=== PATIENT | male | born 1955 | race Caucasian/White ===

== ENCOUNTER → 2017-09-15 09:56 | Outpatient (CLI) | payer OTHER, SELFPAY ==
[2017-09-15 11:57] LABS: Absolute Lymphocyte Count 1.69 X10^3/ul (0.83-4.51); Absolute Neutrophil Count 2.9 X10^3/uL (2.0-7.7); Basophil# 0.03 X10^3/uL; Basophil% 0.6 % (0-1); Eosinophil# 0.05 X10^3/uL; Hematocrit 42.8 % (40-54); Hemoglobin 14.3 g/dl (13.0-16.5); Lymphocyte # 1.69 X10^3/ul (4.0); Lymphocyte % 33.3 % (19-41); Mean Corp Hgb Conc 33.4 g/gl (32-36); Mean Corpuscular Hgb 30.3 pg (27.0-32.0); Mean Corpuscular Volume 90.7 fL (80-94); Mean Platelet Vol. 9.7 fl (6.2-12.0); Monocyte# 0.41 X10^3/uL; Monocyte% 8.1 % (0-10); Neutrophil # 2.89 X10^3/uL (2.7-7.7); Platelet Count 183 K/mm3 (150-450); RBC Distribution Width CV 12.3 % (11.6-14.6); RBC Distribution Width SD 41.5 fl (35.1-43.9); Red Blood Count 4.72 M/mm3 (4.6-6.2); White Blood Count 5.1 K/mm3 (4.4-11.0)
[2017-09-15 11:58] LABS: POSITIVE COUNT NO; POSITIVE DIFFERENTIAL NO; POSITIVE MORPHOLOGY NO
[2017-09-15 12:10] LABS: Anion Gap 5 (5-15); BUN 24 mg/dL (7-18); BUN/Creat Ratio 25.7 RATIO (10-20); Chloride 106 mmol/L (98-107); Creatinine, Serum 0.94 mg/dL (0.70-1.30); EST Glomerular Filtration Rate 87 mL/min (>60); Est Glom Filt Rate - Afr Amer 105 mL/min (>60); Glucose 138 mg/dL (74-106); Potassium 4.2 mmol/L (3.5-5.1); Sodium Level 142 mmol/L (136-145)
== END ==
PROVIDERS: Family Provider Family Medicine; PCP Family Medicine; Visit Provider Family Medicine
DX: E11.9 Type 2 diabetes mellitus without complications (principal)
CPT/HCPCS: 36415; 80048; 85025

== ENCOUNTER → 2019-09-16 08:36 | Outpatient (CLI) | payer OTHER, SELFPAY ==
[2019-09-16 12:27] LABS: Absolute Lymphocyte Count 1.47 X10^3/uL (0.83-4.51); Absolute Neutrophil Count 3.1 X10^3/uL (2.0-7.7); Basophil# 0.03 X10^3/uL; Basophil% 0.6 % (0-1); Eosinophil# 0.09 X10^3/uL; Eosinophils% 1.8 % (0-5); Hemoglobin 13.3 g/dL (13.0-16.5); Lymphocyte # 1.47 X10^3/ul (4.0); Lymphocyte % 29.2 % (19-41); Mean Corp Hgb Conc 34.1 g/dL (32-36); Mean Corpuscular Hgb 31.4 pg (27.0-32.0); Mean Corpuscular Volume 92.2 fL (80-94); Mean Platelet Vol. 9.9 fl (6.2-12.0); NRBC Flagged by Analyzer 0 % (0-5); Neutrophil # 3.12 X10^3/uL (2.7-7.7); Platelet Count 181 K/mm3 (150-450); RBC Distribution Width CV 11.9 % (11.6-14.6); RBC Distribution Width SD 40.3 fl (35.1-43.9); Red Blood Count 4.23 M/mm3 (4.6-6.2)
[2019-09-16 12:39] LABS: Anion Gap 2 (5-15); BUN 24 mg/dL (7-18); BUN/Creat Ratio 25.8 RATIO (10-20); Chloride 110 mmol/L (98-107); Cholesterol 140 mg/dL (200); Creatinine, Serum 0.93 mg/dL (0.70-1.30); EST Glomerular Filtration Rate 87 mL/min (>60); Est Glom Filt Rate - Afr Amer 105 mL/min (>60); Glucose 151 mg/dL (74-106); High Density Lipoprotein 51 mg/dL; Potassium 4.3 mmol/L (3.5-5.1); Sodium Level 142 mmol/L (136-145); Triglycerides 48 mg/dL; Very Low Density Lipoprotein 10 mg/dL (5-40)
[2019-09-16 14:04] LABS: Hemoglobin A1c 7.1 % (3.8-5.6)
== END ==
PROVIDERS: PCP Family Medicine; Visit Provider Family Medicine
DX: E11.9 Type 2 diabetes mellitus without complications (principal); E78.5 Hyperlipidemia, unspecified
CPT/HCPCS: 36415; 80048; 80061; 83036; 85025

== ENCOUNTER → 2022-07-05 | Outpatient (CLI) | payer BC, SELFPAY ==
[2022-07-05 09:12] LABS: Absolute Lymphocyte Count 1.35 X10^3/uL (0.83-4.51); Absolute Neutrophil Count 2.8 X10^3/uL (2.0-7.7); Basophil# 0.04 X10^3/uL; Basophil% 0.9 % (0-1); Eosinophil# 0.06 X10^3/uL; Eosinophils% 1.3 % (0-5); Hematocrit 43.1 % (40-54); Hemoglobin 14.1 g/dL (13.0-16.5); Lymphocyte # 1.35 X10^3/ul (0.83-4.51); Lymphocyte % 29.2 % (19-41); Mean Corp Hgb Conc 32.7 g/dL (32-36); Mean Corpuscular Hgb 30.3 pg (27.0-32.0); Mean Corpuscular Volume 92.7 fL (80-94); Mean Platelet Vol. 9.9 fl (6.2-12.0); Monocyte# 0.34 X10^3/uL; Monocyte% 7.3 % (0-10); NRBC Flagged by Analyzer 0 % (0-5); Neutrophil # 2.83 X10^3/uL (2.7-7.7); Neutrophil % 61.1 % (47-70); Platelet Count 192 K/mm3 (150-450); RBC Distribution Width SD 40.9 fl (35.1-43.9); Red Blood Count 4.65 M/mm3 (4.6-6.2); White Blood Count 4.6 K/mm3 (4.4-11.0)
[2022-07-05 10:02] LABS: ALB/GLOB Ratio 1.2 RATIO (0.9-2.4); AST(SGOT) 34 U/L (15-37); Alanine Aminotransfer ALT/SGPT 40 U/L (16-61); Albumin, Serum 3.8 g/dL (3.2-5.0); Alkaline Phosphatase 63 U/L (45-117); Anion Gap 4 (5-15); BUN 18 mg/dL (7-18); BUN/Creat Ratio 20.1 RATIO (10-20); Chloride 109 mmol/L (98-107); Cholesterol 130 mg/dL (200); EST Glomerular Filtration Rate 90 mL/min (>60); Est Glom Filt Rate - Afr Amer 109 mL/min (>60); Globulin 3.2 g/dL (2.2-4.2); Glucose 118 mg/dL (74-106); High Density Lipoprotein 57 mg/dL; Potassium 3.9 mmol/L (3.5-5.1); Sodium Level 141 mmol/L (136-145); Triglycerides 74 mg/dL; Very Low Density Lipoprotein 15 mg/dL (5-40)
== END | disposition home or self-care (01) ==
LOC: LAB 08:32
PROVIDERS: PCP Family Medicine; Referring Provider Nurse Practitioner Family; Visit Provider Nurse Practitioner Family
DX: Z00.00 Encounter for general adult medical examination without abnormal findings (principal); E11.9 Type 2 diabetes mellitus without complications; N40.0 Benign prostatic hyperplasia without lower urinary tract symptoms; I10 Essential (primary) hypertension
CPT/HCPCS: 36415; 80053; 80061; 84153; 85025; G0103

== ENCOUNTER → 2022-12-20 | Outpatient (CLI) | payer BC, SELFPAY ==
[2022-12-20 10:48] LABS: Absolute Lymphocyte Count 1.31 X10^3/uL (0.83-4.51); Absolute Neutrophil Count 3.3 X10^3/uL (2.0-7.7); Basophil# 0.02 X10^3/uL; Basophil% 0.4 % (0-1); Eosinophil# 0.07 X10^3/uL; Eosinophils% 1.4 % (0-5); Hemoglobin 14.5 g/dL (13.0-16.5); Lymphocyte # 1.31 X10^3/ul (0.83-4.51); Lymphocyte % 25.8 % (19-41); Mean Platelet Vol. 9.9 fl (6.2-12.0); Monocyte# 0.38 X10^3/uL; Monocyte% 7.5 % (0-10); NRBC Flagged by Analyzer 0 % (0-5); Neutrophil # 3.28 X10^3/uL (2.7-7.7); Neutrophil % 64.7 % (47-70); Platelet Count 207 K/mm3 (150-450); RBC Distribution Width CV 11.9 % (11.6-14.6); RBC Distribution Width SD 41.2 fl (35.1-43.9); Red Blood Count 4.68 M/mm3 (4.6-6.2); White Blood Count 5.1 K/mm3 (4.4-11.0)
[2022-12-20 11:10] LABS: ALB/GLOB Ratio 1.3 RATIO (0.9-2.4); AST(SGOT) 32 U/L (15-37); Alanine Aminotransfer ALT/SGPT 50 U/L (16-61); Albumin, Serum 4.1 g/dL (3.2-5.0); Alkaline Phosphatase 75 U/L (45-117); Anion Gap 6 (5-15); BUN 19 mg/dL (7-18); BUN/Creat Ratio 21.9 RATIO (10-20); Chloride 105 mmol/L (98-107); Cholesterol 126 mg/dL (200); Creatinine, Serum 0.87 mg/dL (0.70-1.30); EST Glomerular Filtration Rate 93 mL/min (>60); Est Glom Filt Rate - Afr Amer 112 mL/min (>60); Globulin 3.2 g/dL (2.2-4.2); Glucose 132 mg/dL (74-106); High Density Lipoprotein 57 mg/dL; Microalbumin:Creatinine Ratio 7.1 mg/g CRE (<30 mg/g CRE); Potassium 3.9 mmol/L (3.5-5.1); Protein, Total 7.3 g/dL (6.4-8.2); Sodium Level 142 mmol/L (136-145); Triglycerides 73 mg/dL; Very Low Density Lipoprotein 15 mg/dL (5-40)
== END | disposition home or self-care (01) ==
LOC: LAB 09:30
PROVIDERS: PCP Family Medicine; Visit Provider Family Medicine
DX: E11.9 Type 2 diabetes mellitus without complications (principal); I10 Essential (primary) hypertension
CPT/HCPCS: 36415; 80053; 80061; 82043; 82570; 85025

== ENCOUNTER 2023-02-02 06:41 | Day surgery (SDC) | payer BC, SELFPAY ==
--- NOTE | 2023-01-28 12:22 | EKG12_ITS ---
Test Reason : PREOP Blood Pressure : / mmHG Vent. Rate : 062 BPM Atrial Rate : 062 BPM P-R Int : 186 ms QRS Dur : 096 ms QT Int : 408 ms P-R-T Axes : 078 076 066 degrees QTc Int : 414 ms Normal sinus rhythm Low voltage QRS Borderline ECG Confirmed by DAGMAR LOVE, LEANDER ([id number]), telegraph editor RAYMOND QUEVEDO ([id number]) on 01/29/2023 9:18:19 AM Referred By: James King Confirmed By:LEANDER LEAVITT MD
[2023-01-28 13:09] LABS: Hematocrit 42.2 % (40-54); Hemoglobin 13.8 g/dL (13.0-16.5); Mean Corp Hgb Conc 32.7 g/dL (32-36); Mean Corpuscular Hgb 30.7 pg (27.0-32.0); Mean Platelet Vol. 9.5 fl (6.2-12.0); Platelet Count 211 K/mm3 (150-450); RBC Distribution Width CV 11.9 % (11.6-14.6); RBC Distribution Width SD 41.3 fl (35.1-43.9); Red Blood Count 4.49 M/mm3 (4.6-6.2); White Blood Count 5.6 K/mm3 (4.4-11.0)
[2023-01-28 13:24] LABS: Hemoglobin A1c 6.8 % (3.8-5.6)
[2023-01-28 13:35] LABS: Anion Gap 2 (5-15); BUN 28 mg/dL (7-18); Calcium,Total 8.8 mg/dL (8.5-10.1); Chloride 108 mmol/L (98-107); EST Glomerular Filtration Rate 79 mL/min (>60); Est Glom Filt Rate - Afr Amer 96 mL/min (>60); Glucose 73 mg/dL (74-106); Potassium 4.2 mmol/L (3.5-5.1); Sodium Level 140 mmol/L (136-145)
--- NOTE | 2023-02-02 07:09 | PCM.HP.BLA ---
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 Is patient in pain?: Yes (left groin) Allergies No Known Allergies Allergy (Unverified 01/15/23 15:06) Medications aspirin 81 mg tablet,delayed release 81 mg PO DAILY 01/15/23 [History Confirmed 01/15/23] atorvastatin 20 mg tablet 20 mg PO 01/15/23 [History Confirmed 01/15/23] glipizide 2.5 mg tablet, extended release 24 hr 2.5 mg PO 01/15/23 [History Confirmed 01/15/23] lisinopril 5 mg tablet 5 mg PO 01/15/23 [History Confirmed 01/15/23] PFSH Medical History (Updated 01/15/23 @ 15:05 by Cierra Yee) Diabetes High cholesterol Hypertension Left inguinal hernia Surgical History (Updated 01/15/23 @ 15:05 by Cierra Yee) S/P laparoscopic cholecystectomy Family History (Updated 01/15/23 @ 15:05 by Cierra Yee) Father Cancer prostate Social History (Updated 01/15/23 @ 15:05 by Cierra Yee) Smoking Status: Former smoker alcohol intake: never HPI HPI HPI: 67-year-old gentleman is referred by Dr. Annamarie Medina for surgical consultation regarding a left inguinal hernia and a written copy of my surgical consult recommendations will return to her. Very pleasant Curly gentleman he works at [employer] months ago he developed bulging in his left groin. He is not claiming that it was work-related. He does do significant mount of [employer] shopping. He claims he enjoys good health other than type 2 diabetes. He does remain physically active. 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 He does not have to do any heavy lifting or straining. ROS General General: No weight change, appetite, fatigue, colon cancer, breast cancer or weakness HEENT HEENT: No difficulty swallowing, eye injury, eye surgery, swollen glands or hoarseness Endo Endocrine: Yes diabetes mellitus; No thyroid disease, thyroid cancer, Hair loss, heat intolerance or cold intolerance Skin Skin: No rash or changing moles Breast Breast: No left breast lump, right breast lump, nipple discharge, breast pain, abnormal mammogram, abnormal US or breast enlargement Musc Musculoskeletal: No back problems, arthritis, rheumatoid arthritis, gout or joint pain Cardio Cardiovascular: No murmur, pacemaker, heart disease, atrial fibrillation, high blood pressure, heart attack, heart stent, palpitations, shortness of breat with exertion or chest pain Psych Psychiatric: No depression, anxiety or hearing voices Resp Respiratory: No shortness of breath, No sleep apnea, No cough, No COPD, No asthma, No emphysema and No wheezing Gastro Gastrointestinal: No abdominal pain, No nausea or vomiting, No diarrhea, No constipation, No blood in stool, No acid reflux, No hemorrhoids, No ulcers, No gallbladder problem and No black,tarry stools [place] Hematologic: No blood thinners, No blood disorders, No bleeding, No anemia and No blood clots Neuro Neurologic: No system reviewed and no additional complaints, except as documented, No as per HPI, No abnormal gait, No abnormal hearing, No abnormal movements, No abnormal speech, No behavioral changes, No burning sensations, No confusion, No convulsions, No disequilibrium, No dizziness, No localized weakness, No frequent falls, No headache(s), No lack of coordination, No loss of vision, No memory loss, No numbness, No other visual disturbances, No radicular pain, No restless legs, No sensory deficit, No syncope, No tingling, No tremor(s), No weakness and No other Exam Const General: cooperative, healthy appearing, comfortable and no acute distress Nutritional Appearance: average body habitus Orientation: alert, awake and oriented x3 [facility] Head: normal to inspection Eyes General: appearance normal, both eyes and all related structures Neck Neck: normal visual inspection Chest Chest palpation & inspection: normal inspection of the chest Resp Effort & Inspection: normal respiratory effort Auscultation: clear to auscultation bilaterally Cardio Rate: regular rate Rhythm: regular rhythm GI Inspection: normal to inspection Percussion: normal to percussion Other: Right groin solid intact Sizable left inguinal hernia which is reducible Testicles are descended bilaterally [facility]ervical Spine: normal cervical lordosis Skin General: no rashes or lesions noted Neuro General: patient alert, patient awake and patient oriented x3 Psych Appearance: grossly normal Assessment and Plan Assessment and Plan (1) Left inguinal hernia: Status: Acute Plan: I proposed to the patient a laparoscopic left inguinal hernia repair with mesh and with his present I discussed technique benefit risk complication alternatives. The absolute earliest I would think he could return to work would be 2 weeks. We will allow further time on his FMLA. He is aware that he will need to allow a recovery period. He is aware that there are no guarantees of success. He has had an opportunity to ask and have questions answered. I appreciate the opportunity of assisting with his surgical care. We will schedule and proceed at his discretion. I have examined the patient and the H&P has been reviewed. There are no clinical changes since date of exam. James King M.D., F.A.C.S.
--- NOTE | 2023-02-02 07:10 | DCINST_ITS ---
Discharge Instructions Procedure General Surgery Diet Discharge Diet: Light diet - advance as tolerated (if you have questions about your diet instructions, please talk to you doctor.) Activity Discharge Activity: May Not Drive (for 3-5 days or while taking narcotic pain medicine.) May shower in (days): 1 Lifting Restrictions: 10 pounds Dressing / Incision Call your doctor if your incision/area has: Continuous Slow Oozing, Sudden Increased Bleeding, Increased Pain/ Swelling, Increased Redness and Foul Smelling Discharge Call your doctor if you observe: Fever of 101 or Higher Suture Line Care: Avoid Pulling/Pushing and Avoid Pinching/Bending Additional Dressing/Incision Instructions:: Change or remove dressing in 4 days. Leave steri-strips in place for 1 week. Follow Up Care Please Follow Up With: James King MD When: Call [phone] to make an appointment to be seen in about 10 days. Please leave your Rosado catheter in place. I anticipate you are being contacted by Dr. Gupta's office for an appointment early next week. This will then facilitate your catheter removal. Test Results: Test results from this visit will be discussed in further detail at your follow- up appointment, if applicable. Discharge Plan Admission Primary Reason for Your Visit: Left inguinal hernia Attending Provider: James King Primary Care Provider: Annamarie Medina Discharge Orders/Prescriptions Prescriptions: New hydrocodone-acetaminophen 5-325 mg tablet 1 tab PO Q6H PRN (Reason: pain) 2 Days Qty: 5 0RF tamsulosin [Flomax] 0.4 mg capsule 0.4 mg PO DAILY Qty: 30 1RF Continued lisinopril 5 mg tablet 5 mg PO DAILY Patient Comments: TAKE 1 TABLET BY MOUTH ONCE DAILY glipizide 2.5 mg tablet extended release 24hr 2.5 mg PO DAILY Patient Comments: TAKE 1 TABLET BY MOUTH ONCE DAILY WITH THE FIRST MEAL OF THE DAY atorvastatin 20 mg tablet 20 mg PO QHS Patient Comments: TAKE 1 TABLET BY MOUTH ONCE DAILY aspirin 81 mg tablet,delayed release (DR/EC) 81 mg PO DAILY Referrals / Follow Up: Nam Olivia MD [Non-Staff] - Disposition Disposition (needs filled in before D/C Order can be placed): Home, Self Care
[2023-02-02 07:15] VITALS: BP 115/75; PULSE 58; RESP 16; TEMP 36.9; O2SAT 97; BMI 23.3
[2023-02-02 07:30] LABS: Bedside Glucose 119 mg/dL (74-106)
[2023-02-02] MEDS: Lactated Ringers 1,000 ML 15 ML IV (07:36)
[2023-02-02] MEDS: Cefazolin 2 GM in 0.9% Normal Saline (100mL Bag) 100 ML IV (08:35)
[2023-02-02] MEDS: Lidocaine Jelly 2% 20 ML Syringe (URO-JET) 1 APPLIC (09:30)
[2023-02-02] MEDS: Bupivacaine Mpf 0.5% 30 ML VIAL (09:33)
--- NOTE | 2023-02-02 09:37 | PCM.OPRPT ---
Report of Operation Date of Procedure: 02/02/23 Pre-Operative Diagnosis: Symptomatic indirect left inguinal hernia Post-Operative Diagnosis: Symptomatic indirect left and 1 hernia with gross urinary bladder distention Surgery/Procedure Performed:: Laparoscopic left inguinal herniorrhaphy Bard 3D max extra-large left mesh: Lot [id number], reference [id number], expiry date 08/28/2027 Secure strap Lot [id number], expiry date July 2024 Description of Surgical Findings:: Timeout informed consent was obtained. 67-year-old gentleman was taken to the operating placed on the table underwent general endotracheal intubation esthesia. Ancef 2 g were given intravenously. The abdomen was sterilely prepped and draped. 0.5% Marcaine was used as a local anesthetic. Skin sites were Arabella size. A total of 30 cc was used. A infraumbilical incision was created sharp dissection carried down to subcu tissue felt that I was below the level of the mesh. Holding sutures of 0 Vicryl placed. Varies needle inserted. Saline drop test performed. The abdomen was insufflated with CO2 to a pressure of 10 mmHg pressure. 10 mm trocar inserted. 10 mm laparoscope inserted. No evidence of any trocar injuries inspection demonstrated massively distended urinary bladder. This was despite that the patient had just voided prior to coming back to the operating room. 5 mm trocars were placed under direct visitation the right and left lower quadrant. A left ilioinguinal nerve block was performed with Marcaine. The peritoneum superior lateral to the internal ring was incised and carried medially. The peritoneum was carefully and tediously tediously completely dissected free. Very large inguinal hernia was encountered with significant amount of blunt and sharp dissection required. Hemostasis was acquired with Hem-o-rosita clips were indicated. The direct indirect and femoral area clearly dissected free. Medially the enlargement of the bladder made it challenging to do this work however I was able to successfully get that done. An extra-large left 3D max mesh was placed was to cover defect area I got it to nicely cover the indirect direct and femoral area. I secured that laterally superiorly and medially with secure strap. Excellent positioning was achieved. Then approximated the peritoneum to itself using combination of secure strap and Hem-o-rosita clips. Complete obliteration to the mesh was achieved. I placed a 5 mm scope and through on the lateral trocar sites inspected umbilical area and there was no evidence of any adhesions and there was evidence of the previous Ventralex mesh but we I penetrated inferior to that. Because of his history of previous hernia I allowed the abdomen to deflate through an antiviral valve and then I approximated the fascial defect with a [id number] suture of 0 Nurolon. Skin edges were approximated with interrupted 4 Monocryl subdermal stitches Steri-Strips Telfa OpSite dressings applied. Because of the gross urinary distention I personally inserted a Rosado catheter. Cleanse the penis with Betadine used Bristagen lidocaine injected placed a 16 Tamazight coud? catheter. 1000 cc of urine emanated there from. He was taken to the recovery room in satisfied condition no apparent complication Specimens none. Drains none. Blood loss minimal. James King M.D., F.A.C.S. Surgeon: James King Type of Anesthesia: General Anesthesiologist: Quinton Grande
[2023-02-02 09:49] VITALS: BP 115/75; BP 134/86; PULSE 64; RESP 16; TEMP 36.9; O2SAT 100
--- NOTE | 2023-02-02 09:53 | NUR.TO.PHY ---
t/c to Dr Mas office. Recommendations: start on Flomax once daily, make referral to Dr Mas office, leave muhammad in for a week
--- NOTE | 2023-02-02 09:58 | NURSING ---
T/C to Dr Mas office regarding urinary retetention. Spoke to Dr King after speaking with Neva and Dr Alonso King will put patient on Flomax daily, his office will send a referral to Dr Gupta. Ashlee to stay in until follow up at Dr Mas office. Spoke with Neva at [facility] office and verified plan of care and that they could get patient in to office next week. Informed her to look for a referral coming from Dr Swann office.
[2023-02-02 10:00] VITALS: BP 115/75; BP 123/80; PULSE 63; RESP 14; O2SAT 96
[2023-02-02 10:15] VITALS: BP 115/75; BP 128/66; PULSE 61; RESP 16; TEMP 36.8; O2SAT 95
[2023-02-02 10:32] LABS: Bedside Glucose 136 mg/dL (74-106)
--- NOTE | 2023-02-02 11:27 | SUR.PHASEII ---
f/u appts made per patient request. Appt for Dr Gupta ([facility]) on thu02/11/23 at 11am, and has an appt to see Dr King 02/11/23 at 1pm
[2023-02-02] MEDS: HYDROcodone Bitartrate/Apap 5/325 Tablet PO (11:34)
[2023-02-02 12:10] VITALS: BP 115/75; BP 121/71; PULSE 67; RESP 14; TEMP 36.6; O2SAT 96
== END 2023-02-02 12:18 | disposition home or self-care (01) ==
LOC: SDC 06:47 → AC 06:50
PROVIDERS: Anesthesiology; PCP Family Medicine; Referring Provider Surgery; Visit Provider Surgery
PROC: (CPT 49650; principal; 2023-02-02 08:15)
DX: K40.90 Unilateral inguinal hernia, without obstruction or gangrene, not specified as recurrent (principal); E11.9 Type 2 diabetes mellitus without complications; I10 Essential (primary) hypertension; Z87.891 Personal history of nicotine dependence; Z79.84 Long term (current) use of oral hypoglycemic drugs; E78.00 Pure hypercholesterolemia, unspecified; Z79.899 Other long term (current) drug therapy; Z79.82 Long term (current) use of aspirin
CPT/HCPCS: 49650; 00840; 36415; 80048; 82962; 83036; 85027; 93005; J7120; C1781; J2405

== ENCOUNTER 2023-04-03 08:09 | Day surgery (SDC) | payer BC, SELFPAY ==
[2023-04-03] VITALS (9 sets, daily range): BP systolic 126–147; BP diastolic 72–84; PULSE 52–76; RESP 16–18; TEMP 36.3–37.1; O2SAT 96–99; BMI 24.2
[2023-04-03] MEDS: Lactated Ringers 1,000 ML 15 ML IV (08:47)
[2023-04-03 09:42] LABS: Bedside Glucose 118 mg/dL (74-106)
--- NOTE | 2023-04-03 10:45 | PROS_PTH ---
PATHOLOGY RESULTS PATIENT: [place]IS [place] [facility] [place][id number] AGE/SX: 67/M ROOM: RE04/03/[address]: Dr. Turner Gupta MD : [id number] BED: DIS: 04/04/2023 SPEC #: [id number] RECD: 04/06/23 07:22 STATUS: GRAHAM GARCIA #: [id number] REGULO: 04/03/23 10:[address]: Turner Gupta DEPT: SURGICAL PATHOLOGY RECD BY: Shwetha Herbert ENTERED: 04/06/23 07:22 SP TYPE: TURP OTHR DR: Dr. Annamarie Medina MD Tissues: Prostate, NOS Procedures: Surgery Specimen Level IV HEADER OPERATION: Transurethral resection of prostate with Olympus PRE-OP DIAGNOSIS: Retention of urine TISSUE SUBMITTED: Prostate tissue MICROSCOPIC DIAGNOSIS Prostate tissue, transurethral resection: Prostatic adenocarcinoma. See cancer summary in the comment section. SJ:rg 04/07/2023 COMMENT PROSTATE CANCER (TUR) SUMMARY: Procedure - transurethral resection of prostate (TURP) Histologic type - Acinar adenocarcinoma Histologic grade ([place] Pattern) - grade group 2 (Melody score 3+4=7) Tumor Quantitation (TUR specimens): Estimated percent of of prostatic tissue involved by tumor - ~50% Periprostatic fat invasion - not applicable Seminal vesicle invasion - not applicable Lymphvascular invasion - not identified Perineural invasion - not identified Additional pathologic findings - benign prostatic hyperplasia. Treatment effect - no known presurgical therapy. The above summary is in compliance with [employer] (CAP) Cancer Protocols Checklist and [place] Joint Committee on Cancer (AJCC), Staging Manual, 8th Ed. Case has been reviewed in consultation with Dr. Ojeda who concurs with the above diagnosis. IDC:AM MICROSCOPIC DESCRIPTION Slides are reviewed. GROSS DESCRIPTION Received is one container labeled with the patient's name and designated prostate tissue. The specimen consists of multiple irregular fragments of pink-hernández, rubbery, soft tissue that in aggregate weigh 16.2 gm and measure in aggregate 6.0 x 6.0 x 2.5 cm. Dehairer tissue is submitted in ten cassettes. / SJ:aden 04/06/2023 TC:0 CPT: 12929
--- NOTE | 2023-04-03 10:50 | DCINST_ITS ---
Discharge Instructions Diet Discharge Diet: No restrictions Activity Discharge Activity: Return to Normal Activity and May Not Drive (while taking narcotic pain medications.) Dressing / Incision Call your doctor if you observe: Fever of 101 or Higher Follow Up Care Please Follow Up With: Turner Gupta MD When: Call [phone] for an appointment Test Results: Test results from this visit will be discussed in further detail at your follow- up appointment, if applicable. Discharge Plan Admission Primary Reason for Your Visit: turp Attending Provider: Turner Gupta Primary Care Provider: Annamarie Medina Discharge Orders/Prescriptions Prescriptions: New ciprofloxacin HCl [Cipro] 500 mg tablet 500 mg PO BID Qty: 14 0RF Continued lisinopril 5 mg tablet 5 mg PO DAILY Patient Comments: TAKE 1 TABLET BY MOUTH ONCE DAILY glipizide 2.5 mg tablet extended release 24hr 2.5 mg PO DAILY Patient Comments: TAKE 1 TABLET BY MOUTH ONCE DAILY WITH THE FIRST MEAL OF THE DAY atorvastatin 20 mg tablet 20 mg PO QHS Patient Comments: TAKE 1 TABLET BY MOUTH ONCE DAILY tamsulosin [Flomax] 0.4 mg capsule 0.4 mg PO DAILY Qty: 30 1RF Held aspirin 81 mg tablet,delayed release (DR/EC) 81 mg PO DAILY Hold Instructions: Resume on 04/17/23. Referrals / Follow Up: Annamarie Medina MD [Primary Care Provider] - Turner Gupta MD [Med Staff - Active Staff] - Disposition Disposition (needs filled in before D/C Order can be placed): Home, Self Care
--- NOTE | 2023-04-03 10:50 | PCM.HP.STD ---
HPI - General General Date of Service: 04/03/23 Chief Complaint: Retention of urine HPI Narrative MARY LUIS, is a 67 M who presents for transurethral resection of prostate for retention of urine PFSH Medical History Diabetes Former smoker High cholesterol Hypertension Left inguinal hernia Urinary retention Wears glasses Wears partial dentures Home Medications aspirin 81 mg tablet,delayed release 81 mg PO DAILY 01/15/23 [History Last Taken 03/20/23] atorvastatin 20 mg tablet 20 mg PO QHS 01/15/23 [History Last Taken 04/02/23] glipizide 2.5 mg tablet, extended release 24 hr 2.5 mg PO DAILY 01/15/23 [History Last Taken 04/02/23] lisinopril 5 mg tablet 5 mg PO DAILY 01/15/23 [History Last Taken 04/03/23] tamsulosin 0.4 mg capsule (Flomax) 0.4 mg PO DAILY #30 caps 02/02/23 [Rx Last Taken 04/02/23] ciprofloxacin HCl 500 mg tablet (Cipro) 500 mg PO BID #14 tabs 04/03/23 [Rx Last Taken Unknown] Allergy/AdvReac Type Severity Reaction Status Date / Time No Known Allergies Allergy Verified 04/03/23 08:44 Family History (Updated 01/15/23 @ 15:05 by Cierra Yee) Father Cancer prostate Surgical History S/P inguinal hernia repair S/P laparoscopic cholecystectomy Social History (Updated 01/15/23 @ 15:05 by Cierra Yee) Smoking Status: Former smoker alcohol intake: never Vital Signs Vital Signs Vital Signs: 04/03/23 08:45 04/03/23 08:45 Temperature 97.6 F L Temperature Source Temporal Pulse Rate 59 L Respiratory Rate 16 Respiratory Pattern Normal Blood Pressure 131/76 H Blood Pressure Mean 94 Blood Pressure Source Monitor Blood Pressure Position Semi-Fowlers Blood Pressure Location Right Arm Pulse Ox 99 Oxygen Delivery Method Room Air Weight Weight: 76.6 kg Body Mass Index (BMI) 24.2 Results Lab / Micro Data Labs: Laboratory Results - last 24 hr 04/03/23 08:39: POC Glucose 118 H
[2023-04-03] MEDS: Cefazolin 2 GM in 0.9% Normal Saline (100mL Bag) 100 ML IV (10:54)
--- NOTE | 2023-04-03 11:53 | OP.PCM_ITS ---
Report of Operation Date of Procedure: 04/03/23 Pre-Operative Diagnosis: BPH with retention of urine Post-Operative Diagnosis: Same Surgery/Procedure Performed:: Transurethral section of prostate Description of Surgical Findings:: In the preoperative setting I discussed with the patient how the surgery would be done with expect afterwards. We discussed how a prostate resection is done and we discussed the risk of the surgery including, bleeding, infection, retrograde ejaculation, changes with ejaculation or intercourse,. We discussed the possibility that the resection of the prostate may not alleviate his urinary symptoms. We discussed the small risk of developing scar tissue along the urethral channel and strictures. We also discussed the chance of the prostate could grow back and he may need further surgery or treatment in the future for prostate problems. Patient was taken back to the operating room, timeout procedure was performed, he was identified and marked and placed on the operating room table. He underwent general anesthesia. He was placed in dorsolithotomy position. Penis and testicles were prepped and draped in usual sterile fashion. Went into the bladder using the visual obturator with a resectoscope. Once inside the bladder identified the right and left ureteral orifice. I then identified the prostate and the anatomy of the prostate. On inspection of the bladder he had a very distended weak looking bladder stretched out from chronic obstruction. I marked out the area of the sphincter and the verumontanum was identified. I then proceeded with the prostate resection first resected the median lobe. And then resected the right lobe of the prostate. Then to resect the left lobe of the prostate. I then resected the apical tissue of the prostate. This was a complete resection of all obstructive tissue to improve voiding and relieve obstruction. I then made sure that there was no injury to the sphincter or the verumontanum was still intact. At the end of the resection all the chips were Ellik out of the bladder. I then identified the left and right ureteral orifice and these were confirmed to be in good position and effluxing and not injured. The resectoscope was removed, a 22 [place] Islander catheter was placed into the bladder on continuous irrigation. And the urine was fairly light pink color and draining normally. He was taken back to the PACU in good condition. Surgeon: Turner Gupta Type of Anesthesia: General Drains: 22fr [address] way Admit VTE Documentation VTE Present on Admission: No VTE Mechan Device Prophylaxis: SCD's VTE Pharm Prophylaxis ordered?: No
[2023-04-03 12:40] LABS: Bedside Glucose 92 mg/dL (74-106)
[2023-04-03] MEDS: 0.9% Normal Saline (1000mL) 1,000 ML 125 ML IV ×2 (15:07→20:51)
[2023-04-03] MEDS: Tamsulosin HCl 0.4 MG Capsule 0.400000000000000022 MG PO (17:11)
[2023-04-03] MEDS: Ciprofloxacin 400 MG/200 ML BAG 200 MG IV (18:04)
[2023-04-03] MEDS: Docusate Sodium 100 MG Capsule 200 MG PO (20:49)
[2023-04-03] MEDS: Atorvastatin Calcium 20 MG Tablet PO (20:50)
[2023-04-04] MEDS: 0.9% Normal Saline (1000mL) 1,000 ML 125 ML IV (04:45)
[2023-04-04] MEDS: Ciprofloxacin 400 MG/200 ML BAG 200 MG IV (04:47)
[2023-04-04 04:53] VITALS: BP 126/78; PULSE 72; RESP 18; TEMP 36.9; O2SAT 98
[2023-04-04 07:50] VITALS: BP 124/79; PULSE 67; RESP 16; TEMP 36.6; O2SAT 96
[2023-04-04] MEDS: Lisinopril 5 MG Tablet PO (07:56)
[2023-04-04] MEDS: glipiZIDE 2.5 MG TAB.ER.24 PO (07:56)
[2023-04-04] MEDS: Docusate Sodium 100 MG Capsule 200 MG PO (07:56)
--- NOTE | 2023-04-04 09:45 | PCM.PN.GU ---
Subjective Subjective Status post TURP CBI is off urine is crystal clear we can remove his catheter and go home I showed him how to use catheters to self cath at home if he is not able to urinate he can be discharged after the catheter is removed. It might take several hours 6 to 8 hours before he starts urinating because he does have a weak lazy distended bladder. Objective Data Objective Data Vital Signs: Vital Signs Temp Pulse Resp BP Pulse Ox O2 Del Method 98.5 F 72 18 126/78 H 98 Room Air 04/04/23 04:53 04/04/23 04:53 04/04/23 04:53 04/04/23 04:53 04/04/23 04:53 04/04/23 07:50 Oxygen Delivery Method Room Air Weight: 76.6 kg Body Mass Index (BMI) 24.2 Intake & Output: Intake and Output for Last 24 Hours 04/02/23 04/03/23 04/04/23 23:59 23:59 23:59 Intake Total 1104.92 / 1104.92 1187.5 / 1187.5 Balance 1104.92 / 1104.92 1187.5 / 1187.5 Lab / Micro Data Labs: Laboratory Results - last 24 hr 04/03/23 12:21: POC Glucose 92
[2023-04-04 10:15] VITALS: BP 134/68; PULSE 66; RESP 16; TEMP 36.9; O2SAT 98
== END 2023-04-04 10:40 | disposition home or self-care (01) ==
LOC: SDC 08:17 → AC 09:12 → MS3 12:38
PROVIDERS: PCP Family Medicine; Referring Provider Urology; Visit Provider Urology
PROC: 0VT08ZZ Resection of Prostate, Via Natural or Artificial Opening Endoscopic (ICD-10-PCS; CPT 52601; principal; 2023-04-03 10:35)
DX: C61 Malignant neoplasm of prostate (principal); E11.9 Type 2 diabetes mellitus without complications; N40.1 Benign prostatic hyperplasia with lower urinary tract symptoms; I10 Essential (primary) hypertension; Z79.84 Long term (current) use of oral hypoglycemic drugs; Z87.891 Personal history of nicotine dependence; E78.00 Pure hypercholesterolemia, unspecified; Z79.82 Long term (current) use of aspirin; Z79.899 Other long term (current) drug therapy; R33.8 Other retention of urine; N13.8 Other obstructive and reflux uropathy
CPT/HCPCS: 52601; 00914; 82962; 88305; J7030; J7120; J0744; J2405

== ENCOUNTER → 2023-04-20 | Outpatient (CLI) | payer BC, SELFPAY | END | disposition home or self-care (01) | LOC: LAB 15:56 | PROVIDERS: PCP Family Medicine; Referring Provider Urology; Visit Provider Urology | DX: C61 Malignant neoplasm of prostate (principal) | CPT/HCPCS: 36415; 84153 ==

== ENCOUNTER → 2023-04-28 | Outpatient (CLI) | payer BC, SELFPAY ==
--- NOTE | 2023-04-28 17:41 | CT_ITS ---
INDICATION: MALIGNANT NEOPLASM OF PROSTATE EXAMINATION: CT ABDOMEN AND PELVIS WITH CONTRAST - CT Abdomen And Pelvis W/ Contrast Injection TECHNIQUE: Helically acquired images were obtained of the abdomen and pelvis following IV contrast. A radiation dose optimization technique was used for this scan. IV Contrast dosage and agent: 100 mL [id number]-370 Oral contrast: None. COMPARISON: CT chest January 18, 2006. FINDINGS: LOWER CHEST: Lung bases are clear. No cardiomegaly or pericardial effusion. LIVER: Homogeneous. No focal mass. GALLBLADDER AND BILIARY TREE: Cholecystectomy. Expected mild postsurgical biliary dilatation. . PANCREAS: Bulky calcifications along the residual pancreas, most prominent at the pancreatic head compatible with sequela of chronic pancreatitis. Diminutive pancreatic parenchyma. No pericholecystic inflammation SPLEEN: Normal size without focal cystic or solid mass. ADRENAL GLANDS: No nodules. KIDNEYS AND URETERS: Multiple renal cysts, no specific imaging follow-up required. No hydronephrosis. Mild perinephric stranding. Imaged portions of the ureters are unremarkable. Bladder is mildly distended with circumferential bladder wall thickening. PERITONEUM: No ascites or free air. No other fluid collection. BOWEL: No acute gastric finding. No small bowel distention or focal wall thickening. Normal appendix. Large colonic stool burden from cecum to rectum. LYMPH NODES: No enlarged mesenteric or retroperitoneal lymph nodes. VESSELS: Aortic atherosclerosis without ectasia. URINARY BLADDER: Unremarkable. REPRODUCTIVE ORGANS: Prior transurethral resection of prostate. Prostate 6.6 x 4.3 x 5.1 cm (75ml). ABDOMINAL WALL: No discrete abdominal or pelvic wall hernia. BONES: L2 vertebral body intraosseous hemangioma. No osteoblastic lesions in the study [id number].. CT/Abdomen/Pelvis W IV Cont ONLY IMPRESSION: Large prostate with prior transurethral surgical resection of prostate. Mild circumferential bladder wall thickening, commonly secondary to chronic outlet dysfunction. Also correlate with urine to exclude cystitis. No CT evidence of metastatic disease in the abdomen or pelvis. Large colonic stool burden as can be seen with constipation. Calcified sequela of chronic pancreatitis. Electronically Signed: Yossi Lewis MD at 23:57 EST ,
[2023-04-28 19:17] LABS: CREATININE FINGERSTICK < 1.0 mg/dL (0.70-1.30); EGFR FINGERSTICK > 60.0000 mL/min (>60)
== END | disposition home or self-care (01) ==
LOC: CT 17:38
PROVIDERS: PCP Family Medicine; Referring Provider Urology; Visit Provider Urology
DX: C61 Malignant neoplasm of prostate (principal)
CPT/HCPCS: 74177; Q9967

== ENCOUNTER → 2023-05-04 | Outpatient (CLI) | payer BC, SELFPAY ==
--- NOTE | 2023-05-04 09:18 | NM_ITS ---
CLINICAL: 67-year-old male with history of primary prostate carcinoma. WHOLE BODY 99m Tc MDP RADIONUCLIDE BONE SCINTIGRAPHY COMPARISON: CT of the abdomen-pelvis report 04/28/2023 FINDINGS: Following the intravenous administration of 24.8 mCi of 99m Tc MDP, whole body bone images reveal: 1. Increased tracer uptake is noted in the region of the right frontal skull in proximity to the coronal suture. 2. Facilitated radiopharmaceutical is defined in the acromioclavicular and sternoclavicular compartments of both shoulders, the patellofemoral and medial tibial compartment of the left knee, the posterior compartment of the left ankle, the mid cervical spine posteriorly on the left, the third lumbar vertebra posteriorly on the left and right. 3. The remaining skeletal structures are scintigraphically unremarkable with normal-appearing renal images and urinary bladder activity identified. NM/Bone Scan Whole Body IMPRESSION: 1. The increase in tracer uptake noted in the right frontal skull in proximity to the coronal suture is most consistent with a normal variant. Correlation with plain film radiography may be of benefit. 2. Degenerative arthritis is defined in the bilateral shoulders, left ankle and knee, the cervical spine, the third lumbar vertebra. 3. There is no definitive typical scintigraphic evidence of diffuse osseous skeletal metastatic disease on the current examination. Electronically Signed: Fred Morton DO at 8:18 EST ,
== END | disposition home or self-care (01) ==
LOC: NM 09:18
PROVIDERS: PCP Family Medicine; Referring Provider Urology; Visit Provider Urology
DX: C61 Malignant neoplasm of prostate (principal)
CPT/HCPCS: 78306; A9503

== ENCOUNTER → 2023-05-26 | Outpatient (CLI) | payer BC, SELFPAY | END | disposition home or self-care (01) | LOC: LABSPEC 16:16 | PROVIDERS: PCP Family Medicine; Referring Provider Nurse Practitioner; Visit Provider Nurse Practitioner | DX: C61 Malignant neoplasm of prostate (principal) | CPT/HCPCS: 36415; 84153 ==

== ENCOUNTER → 2023-07-21 | Outpatient (CLI) | payer BC, SELFPAY | END | disposition home or self-care (01) | LOC: LAB 15:59 | PROVIDERS: PCP Family Medicine; Referring Provider Urology; Visit Provider Urology | DX: C61 Malignant neoplasm of prostate (principal) | CPT/HCPCS: 36415; 84153 ==

== ENCOUNTER 2023-07-29 05:26 | Day surgery (SDC) | payer BC, SELFPAY ==
[2023-07-29] VITALS (7 sets, daily range): BP systolic 104–126; BP diastolic 67–77; PULSE 60–68; RESP 16–20; TEMP 36.6–36.8; O2SAT 94–99; BMI 23.5
--- NOTE | 2023-07-29 | IMM_PTH ---
PATIENT: MARY LUIS [place] [facility] [place][id number] AGE/SX: 67/M ROOM: RE07/29/[address]: Dr. Turner Gupta MD : 1955 BED: DIS: 07/29/2023 SPEC #: [id number] RECD: 07/31/23 13:11 STATUS: GRAHAM REQ #: [id number] REGULO: 07/29/23 00:[address]: Turner Gupta DEPT: IMMUNOHISTOCHEMISTRY RECD BY: Javy Daily ENTERED: 07/31/23 13:12 SP TYPE: IMMUNO OTHR DR: Dr. Annamarie Medina MD Tissues: B - PROSTATE RIGHT C - PROSTATE RIGHT E - PROSTATE LEFT F - PROSTATE LEFT Procedures: 34BE12 (add) Pankeratin (initial) Pankeratin (add) P40 (add) PHYSICIAN & INSTITUTION [place] [id number] SPECIMEN INFORMATION: Tissue Source: B- Prostate, right mid biopsy, C- Prostate, right apex biopsy, E- Prostate, left mid biopsy, F- Prostate, left apex biopsy Clinical Info: Elevated PSA, prostate cancer Specimen Number: [id number] B, C, E, F CPT code: 66046a0,37330z3 METHODOLOGY: Deparaffinized sections of prefer/formalin-fixed tissue or PAP/DQ stained slides are incubated with monoclonal/polyclonal antibodies/oligonucleotide probes. Localization is made via biotin free immunoperoxidase method. Appropriate controls are performed and reacted as expected. Results on target cell population are indicated in the following table: RESULTS: ANTIBODY / CLONE RESULT Block B AE1-3 (AE1/AE3/PCK26) positive P40 (BC28) negative, focal 34BE12 (34BE12) positive Block C AE1-3 (AE1/AE3/PCK26) positive P40 (BC28) negative 34BE12 (34BE12) negative Block E AE1-3 (AE1/AE3/PCK26) positive P40 (BC28) positive 34BE12 (34BE12) positive Block F AE1-3 (AE1/AE3/PCK26) positive P40 (BC28) negative, focal 34BE12 (34BE12) negative, focal These tests were developed and their performance characteristics determined by [facility]. They may not have been cleared or approved by the U.S. Food and Drug Administration. The FDA has determined that such clearance or approval is not necessary. The above immunohistochemical/dualISH markers are ordered and reviewed by the Pathologist. INTERPRETATION: B. Prostate, right mid, biopsy: Benign prostatic tissue. C. Prostate, right apex, biopsy: Adenocarcinoma. E. Prostate, left mid, biopsy: Benign prostatic tissue. F. Prostate, left apex, biopsy: Atypical small acinar proliferation. Case has been reviewed in consultation with Dr. Major who concurs with the above diagnosis. IDC:NOÉ YOO/ 08/03/2023
[2023-07-29] MEDS: Lactated Ringers 1,000 ML 15 ML IV (06:06)
[2023-07-29] MEDS: Ciprofloxacin 400 MG/200 ML BAG 200 MG IV (07:20)
--- NOTE | 2023-07-29 07:28 | HP.PCM_ITS ---
HPI - General General Date of Service: 07/29/23 Chief Complaint: Elevated PSA and prostate cancer HPI Narrative MARY LUIS, is a 67 M who presents for a transrectal ultrasound-guided biopsy saturation of the prostate he has a history prostate cancer elevated PSA we will do a saturation biopsy to see if there is any remaining cancer after the TURP surgery. FORMERLY [facility], [facility] Medical History Urinary retention Wears partial dentures Wears glasses Former smoker Left inguinal hernia Hypertension High cholesterol Diabetes Home Medications ?Medication ?Instructions ?Recorded ?Last Taken ?Type aspirin 81 mg tablet,delayed 81 mg PO DAILY 01/15/23 07/15/23 History release atorvastatin 20 mg tablet 20 mg PO QHS 01/15/23 07/28/23 History glipizide 2.5 mg tablet, extended 5 mg PO DAILY 01/15/23 07/28/23 History release 24 hr lisinopril 5 mg tablet 5 mg PO DAILY 01/15/23 07/29/23 History ciprofloxacin HCl 500 mg tablet 500 mg PO BID #10 tabs 07/29/23 Unknown Rx (Cipro) Allergy/AdvReac Type Severity Reaction Status Date / Time No Known Allergies Allergy Verified 07/29/23 05:55 Family History (Updated 01/15/23 @ 15:05 by Cierra Yee) Father Cancer prostate Surgical History S/P inguinal hernia repair S/P laparoscopic cholecystectomy Social History (Updated 01/15/23 @ 15:05 by Cierra Yee) Smoking Status: Former smoker alcohol intake: never Vital Signs Vital Signs Vital Signs: 07/29/23 05:57 07/29/23 05:57 Temperature 97.8 F Temperature Source Temporal Pulse Rate 60 Respiratory Rate 20 H Respiratory Pattern Normal Blood Pressure 122/72 H Blood Pressure Mean 88 Blood Pressure Source Monitor Blood Pressure Position Sitting Blood Pressure Location Right Arm Pulse Ox 99 Oxygen Delivery Method Room Air Weight Weight: 74.3 kg Body Mass Index (BMI) 23.5
--- NOTE | 2023-07-29 07:28 | PCM.DC ---
Discharge Instructions Diet Discharge Diet: No restrictions Activity Discharge Activity: Return to Normal Activity and May Not Drive (while taking narcotic pain medications.) Dressing / Incision Call your doctor if you observe: Fever of 101 or Higher Follow Up Care Please Follow Up With: Turner Gupta MD When: Call [phone] for an appointment Test Results: Test results from this visit will be discussed in further detail at your follow-up appointment, if applicable. Discharge Plan Admission Primary Reason for Your Visit: Prostate biopsy Attending Provider: Turner Gupta Primary Care Provider: Annamarie Medina Instructions Print Language: Latvian Discharge Orders/Prescriptions Prescriptions: New ciprofloxacin HCl [Cipro] 500 mg tablet 500 mg PO BID Qty: 10 0RF Continued lisinopril 5 mg tablet 5 mg PO DAILY Patient Comments: TAKE 1 TABLET BY MOUTH ONCE DAILY glipizide 2.5 mg tablet extended release 24hr 5 mg PO DAILY Patient Comments: TAKE 1 TABLET BY MOUTH ONCE DAILY WITH THE FIRST MEAL OF THE DAY atorvastatin 20 mg tablet 20 mg PO QHS Patient Comments: TAKE 1 TABLET BY MOUTH ONCE DAILY aspirin 81 mg tablet,delayed release (DR/EC) 81 mg PO DAILY Other Ambulatory Orders: 12 Lead EKG (Routine) Timeframe: [id number] Facility: [facility] - Location: Cardiovascular Services Ordered By: Dr. Antonio Amador Referrals / Follow Up: Annamarie Medina MD [Primary Care Provider] - Turner Gupta MD [Med Staff - Active Staff] - Disposition Disposition (needs filled in before D/C Order can be placed): Home, Self Care
--- NOTE | 2023-07-29 07:30 | PROSBIL_PTH ---
PATIENT: MARY LUIS LOC: [facility] [place] U#:[id number] AGE/SX: 67/M ROOM: RE07/29/[address]: Dr. Turner Gupta MD : 1955 BED: DIS: 07/29/2023 SPEC #: [id number] RECD: 07/29/23 08:49 STATUS: GRAHAM GARCIA #: [id number] REGULO: 07/29/23 07:[address]: Turner Gupta DEPT: SURGICAL PATHOLOGY RECD BY: Marilou Rodgers ENTERED: 07/29/23 10:48 SP TYPE: PROST BX RADHA DR: Dr. Annamarie Medina MD Tissues: A - PROSTATE RIGHT B - PROSTATE RIGHT C - PROSTATE RIGHT D - PROSTATE LEFT E - PROSTATE LEFT F - PROSTATE LEFT Procedures: PROSTATE BX HEADER OPERATION: Ultrasound guided prostate biopsy PRE-OP DIAGNOSIS: Elevated PSA, prostate cancer TISSUE SUBMITTED: A - Right base, B - Right mid, C - Right apex, D - Left base, E - Left mid, F - Left apex MICROSCOPIC DIAGNOSIS A. Right prostate, base, core biopsy: Focal high-grade prostatic intraepithelial neoplasia (HGPIN). Chronic inflammation. B. Right prostate, mid, core biopsy: Focal glandular atrophy. Mild chronic inflammation. See comment. C. Right prostate, apex, core biopsy: Adenocarcinoma. Melody grade: 3+3 (6) Cores involved: 2/3 Tissue involved: 30 % Greatest tumor length: 13.0 millimeters See comment. D. Left prostate, base, core biopsy: Focal high-grade prostatic intraepithelial neoplasia (HGPIN). E. Left prostate, mid, core biopsy: Focal high-grade prostatic intraepithelial neoplasia (HGPIN). Minimal chronic inflammation. See comment. F. Left prostate, apex, core biopsy: Atypical small acinar proliferation. See comment. NAILA/ 07/30/2023 COMMENT Immunohistochemistry ([id number]) supports the above diagnosis. Case has been reviewed in consultation with Dr. Major who concurs with the above diagnosis. IDC:SJ MICROSCOPIC DESCRIPTION Slides are reviewed. GROSS DESCRIPTION A - Received is one container designated prostate, right base. The specimen consists of three elongated fragments of light hernández-white soft tissue each measuring 1.0 cm in length and 0.1 cm in diameter. The specimen is totally submitted in one cassette. B - Received is one container designated prostate, right mid. The specimen consists of three elongated fragments of light hernández-white soft tissue each measuring 1.0 cm in length and 0.1 cm in diameter. The specimen is totally submitted in one cassette. C - Received is one container designated prostate, right apex. The specimen consists of three elongated fragments of light hernández-white soft tissue each measuring 1.5 cm in length and 0.1 cm in diameter. The specimen is totally submitted in one cassette. D - Received is one container designated prostate, left base. The specimen consists of three elongated fragments of light hernández-white soft tissue each measuring 1.0 cm in length and 0.1 cm in diameter. The specimen is totally submitted in one cassette. E - Received is one container designated prostate, left mid. The specimen consists of three elongated fragments of light hernández-white soft tissue each measuring 1.0 cm in length and 0.1 cm in diameter. The specimen is totally submitted in one cassette. F - Received is one container designated prostate, left apex. The specimen consists of three elongated fragments of light hernández-white soft tissue each measuring 1.5 cm in length and 0.1 cm in diameter. The specimen is totally submitted in one cassette. AM/mr 07/29/23 TC: 0 [facility]: [id number] [phone]
--- NOTE | 2023-07-29 07:30 | US_ITS ---
STUDY: ULTRASOUND-GUIDED PROSTATE BIOPSY. REASON FOR EXAM: Male, 67 years old. Elevated PSA. TECHNIQUE: Under direct sonographic guidance, the urologist perform multiple core biopsies of the prostate utilizing an 18-gauge core biopsy needle system. COMPARISON: None. US/Prostate Biopsy IMPRESSION: Ultrasound-guided prostatic biopsies. Electronically Signed: Michelet Barrera MD at 10:39 EDT ,
--- NOTE | 2023-07-29 07:47 | PCM.OPRPT ---
Report of Operation Date of Procedure: 07/29/23 Pre-Operative Diagnosis: Elevated PSA and prostate cancer Post-Operative Diagnosis: The same Surgery/Procedure Performed:: Transrectal, ultrasound-guided biopsy of the prostate Description of Surgical Findings:: Patient was taken back to the operating room and underwent anesthesia, he was placed in dorsal lithotomy position with the legs in stirrups making sure to proper sleep pad all pressure points. The patient had undergone an enema in preparation for the biopsy and also was on antibiotics preloaded IV. I then introduced a ultrasound probe into the rectum with digital guidance and a bimanual exam of the prostate was performed. The prostate was about 80mg in size. No hard nodules were noted on exam. Then using the ultrasound probe the prostate was imaged with three-dimensional ultrasound imaging and the prostate was apical distance was measured with was measured in its height was measured calculated volume was then performed the prostate measured about 80mg in size. We then performed a biopsy of the prostate starting at the right base biopsy was done medially and laterally we then moved to the right mid of the prostate biopsy was performed medially and laterally obtaining good tissue from the middle transition zone and also the peripheral zone. We went to the apex of the prostate and also obtained a biopsy medially and laterally from the transition zone in the apex of the prostate and peripheral zone. We then switched the probe and went to the left side of the prostate into the right base of the prostate with a biopsy medially and laterally in the peripheral zone in the transition zone, we went to the mid prostate on the left side and that a biopsy in the transition zone and peripheral zone medially and laterally and then finally we went to the apex and then a biopsy medially and laterally in the peripheral zone and transition zone. After the standard biopsy was performed and the ultrasound probe was removed. Surgeon: Turner Gupta Type of Anesthesia: General Drains: none Estimated Blood Loss (mL): 0 Admit VTE Documentation VTE Present on Admission: No VTE Mechan Device Prophylaxis: SCD's VTE Pharm Prophylaxis ordered?: No
[2023-07-29 09:55] LABS: Bedside Glucose 91 mg/dL (74-106)
== END 2023-07-29 09:08 | disposition home or self-care (01) ==
LOC: SDC 05:26 → AC 05:27
PROVIDERS: PCP Family Medicine; Referring Provider Urology; Visit Provider Urology
PROC: (CPT 55700; principal; 2023-07-29 07:20)
DX: C61 Malignant neoplasm of prostate (principal); E11.9 Type 2 diabetes mellitus without complications; N42.32 Atypical small acinar proliferation of prostate; E78.00 Pure hypercholesterolemia, unspecified; I10 Essential (primary) hypertension; R97.20 Elevated prostate specific antigen [PSA]; Z79.82 Long term (current) use of aspirin; Z79.84 Long term (current) use of oral hypoglycemic drugs; Z79.899 Other long term (current) drug therapy; Z87.891 Personal history of nicotine dependence
CPT/HCPCS: 00902; 55700; 76942; 82962; 88305; 88341; 88342; J7120; G0416; J0744; J2405

== ENCOUNTER → 2023-11-07 | Outpatient (CLI) | payer BC, SELFPAY ==
[2023-11-07 09:31] LABS: Absolute Lymphocyte Count 1.37 X10^3/uL (0.83-4.51); Absolute Neutrophil Count 3.7 X10^3/uL (2.0-7.7); Basophil# 0.03 X10^3/uL; Basophil% 0.5 % (0-1); Eosinophil# 0.06 X10^3/uL; Eosinophils% 1.1 % (0-5); Hematocrit 42.5 % (40-54); Hemoglobin 13.9 g/dL (13.0-16.5); Lymphocyte # 1.37 X10^3/ul (0.83-4.51); Lymphocyte % 24.9 % (19-41); Mean Corp Hgb Conc 32.7 g/dL (32-36); Mean Corpuscular Hgb 30.4 pg (27.0-32.0); Mean Platelet Vol. 9.7 fl (6.2-12.0); Monocyte% 5.5 % (0-10); NRBC Flagged by Analyzer 0 % (0-5); Neutrophil # 3.73 X10^3/uL (2.7-7.7); Neutrophil % 67.8 % (47-70); Platelet Count 197 K/mm3 (150-450); RBC Distribution Width SD 41.4 fl (35.1-43.9); Red Blood Count 4.57 M/mm3 (4.6-6.2); White Blood Count 5.5 K/mm3 (4.4-11.0)
[2023-11-07 10:38] LABS: Microalbumin,Random Urine 21.4 mg/L (NO RANGE EST.)
[2023-11-07 11:09] LABS: ALB/GLOB Ratio 1.2 RATIO (0.9-2.4); AST(SGOT) 23 U/L (15-37); Alanine Aminotransfer ALT/SGPT 41 U/L (16-61); Alkaline Phosphatase 83 U/L (45-117); Anion Gap 3 (5-15); BUN 14 mg/dL (7-18); BUN/Creat Ratio 14.8 RATIO (10-20); Calcium,Total 9.5 mg/dL (8.5-10.1); Chloride 109 mmol/L (98-107); Cholesterol 131 mg/dL (200); Creatinine, Serum 0.95 mg/dL (0.70-1.30); EST Glomerular Filtration Rate 84 mL/min (>60); Est Glom Filt Rate - Afr Amer 101 mL/min (>60); Globulin 3.4 g/dL (2.2-4.2); Glucose 149 mg/dL (74-106); High Density Lipoprotein 55 mg/dL; Potassium 4.1 mmol/L (3.5-5.1); Protein, Total 7.4 g/dL (6.4-8.2); Sodium Level 141 mmol/L (136-145); Triglycerides 118 mg/dL; Very Low Density Lipoprotein 24 mg/dL (5-40)
== END | disposition home or self-care (01) ==
LOC: LAB 08:50
PROVIDERS: PCP Family Medicine; Referring Provider Family Medicine; Visit Provider Family Medicine
DX: I10 Essential (primary) hypertension (principal); E11.9 Type 2 diabetes mellitus without complications
CPT/HCPCS: 36415; 80053; 80061; 82043; 82570; 85025

== ENCOUNTER → 2024-02-13 | Outpatient (CLI) | payer BC, SELFPAY | END | disposition home or self-care (01) | LOC: LAB 11:09 | PROVIDERS: PCP Family Medicine; Referring Provider Nurse Practitioner; Visit Provider Nurse Practitioner | DX: C61 Malignant neoplasm of prostate (principal) | CPT/HCPCS: 36415; 84153 ==

== ENCOUNTER → 2024-05-17 | Outpatient (CLI) | payer BC, SELFPAY ==
[2024-05-17 16:17] LABS: Erythrocyte Sedimentation Rate 18 mm/hr (0-20)
[2024-05-17 19:19] LABS: Rheumatoid Factor < 10.0 IU/mL (<15)
[2024-05-19 11:08] LABS: ANTINUCLEAR ANTIBODIES DIRECT Negative (Negative)
[2024-05-19 14:09] LABS: CCP IgG Antibodies 4 units (0-19)
== END | disposition home or self-care (01) ==
LOC: LABSURVEY 14:44
PROVIDERS: PCP Family Medicine; Referring Provider Family Medicine; Visit Provider Family Medicine
DX: M25.50 Pain in unspecified joint (principal)
CPT/HCPCS: 36415; 85652; 86038; 86140; 86200; 86431

== ENCOUNTER → 2024-08-10 | Outpatient (CLI) | payer BC, SELFPAY ==
[2024-08-10 16:26] LABS: PSA,Total- Diagnostic 6.65 ng/mL (0.00-4.00)
== END | disposition home or self-care (01) ==
LOC: LAB 14:37
PROVIDERS: PCP Family Medicine; Referring Provider Nurse Practitioner; Visit Provider Nurse Practitioner
DX: C61 Malignant neoplasm of prostate (principal)
CPT/HCPCS: 36415; 84153

== ENCOUNTER → 2024-11-05 | Outpatient (CLI) | payer BC, SELFPAY ==
--- OUTSIDE RECORDS SUMMARY | 2024-11-05 09:32 | XMS RPT_ITS | CCD ---
Author Organization [facility] CliniSywa Care Team Providers Care Rivet Tester Name Role Phone Dr. Nam Olivia Primary Care Provider [facility] Dr. Nam Mead Referring Provider Unavailable Dr. James King Attending Provider Dr. James King Referring Provider Dr. James King Other Provider Dr. Annamarie Medina Primary Care Provider Dr. Annamarie Medina Primary Care Provider Dr. Nelson Denny Attending Provider Dr. James King Referring Provider Dr. Annamarie Medina Referring Provider MEKHI Ramsey Attending Provider Dr. Annamarie Medina Primary Care Provider Dr. Annamarie Medina Referring Provider MEKHI Ramsey Attending Provider Dr. Annamarie Medina MD Primary Care Provider Uma Crook Attending Provider [phone] Uma Crook Referring Provider Dr. Annamarie Medina MD Attending Provider Dr. Annamarie Medina MD Referring Provider Dr. Annamarie Medina MD Primary Care Provider Uma Crook Attending Provider Sen Crooken Referring Provider [facility] [place] Primary Care Unavailable [facility] Annamarie Referring Unavailable [facility] Annamarie Attending Unavailable [facility] [place] Primary Care Unavailable [place], Uma Referring Unavailable [place], Uma Attending Unavailable [facility] Primary Care Unavailable [facility] Annamarie Referring Unavailable BenignoValeriah Attending Unavailable [place], Uma Referring Unavailable [place], Uma Attending Unavailable [facility] Primary Care Unavailable [facility] Primary Care Physician [phone] [facility] Primary Care Unavailable DR SON MALDONADO DO Attending Unavailable Medications Current Medications Medication Drug Class(es) Dates Sig (Normalized) Sig (Original) aspirin 81 mg delayed release oral tablet (8 sources) Platelet Aggregation Inhibitor, Nonsteroidal Anti-inflammatory Drug Start: 01-15-2023 take 1 tablet by mouth once daily Aspirin 81 mg tablet,delayed release (/EC) Active 81 mg PO DAILY January 15, 2023 1:00am atorvastatin 20 mg oral tablet (8 sources) HMG-CoA Reductase Inhibitor Start: 01-15-2023 take 1 tablet by mouth at bedtime Atorvastatin 20 mg tablet Active 20 mg PO AT BEDTIME January 15, 2023 1:00am ciprofloxacin 500 mg oral tablet (16 sources) Quinolone Antimicrobial Start: 07-29-2023 take 1 tablet by mouth twice daily Ciprofloxacin Hcl (Cipro) 500 mg tablet Active 500 mg PO TWICE A DAY July 29, 2023 12:00am Start: 04-03-2023 End: 07-15-2023 take 1 tablet by mouth twice daily Ciprofloxacin Hcl (Cipro) 500 mg tablet Discontinued 500 mg PO TWICE A DAY April 03, 2023 1:00am July 15, 2023 1:10pm erythromycin 0.005 mg/mg ophthalmic ointment (1 source) Macrolide, Macrolide Antimicrobial Start: 09-25-2024 End: 2024 erythromycin 0.5% ophthalmic ointment Dose = 1 colin, Eyes, both, QID, 1 colin = 0.5 inch, X 7 day(s), # 3.5 gram(s), 0 Refill(s) Start Date: 09/25/24 Stop Date: 10/02/24 Status: Ordered Quantity: 3.5 Unit: g Repeat number: 1 glipiZIDE er 2.5 mg 24 hr extended release oral tablet (8 sources) Sulfonylurea Start: 01-15-2023 take 1 tablet by mouth once daily Glipizide 2.5 mg tablet extended release 24hr Active 5 mg PO DAILY January 15, 2023 1:00am ketorolac tromethamine 4 mg/ml ophthalmic solution (1 source) Nonsteroidal Anti-inflammatory Drug, Cyclooxygenase Inhibitor Start: 09-25-2024 End: 09-29-2024 ketorolac 0.4% ophthalmic solution Dose = 1 drop(s), Eyes, both, QID, X 4 day(s), # 5 mL, 0 Refill(s) Start Date: 09/25/24 Stop Date: 09/29/24 Status: Ordered Quantity: 5.0 Unit: mL Repeat number: 1 lisinopril 5 mg oral tablet (8 sources) Angiotensin Converting Enzyme Inhibitor Start: 01-15-2023 take 1 tablet by mouth once daily Lisinopril 5 mg tablet Active 5 mg PO DAILY January 15, 2023 1:00am Completed/Discontinued Medications Medication Drug Class(es) Dates Sig (Normalized) Sig (Original) acetaminophen 325 mg / HYDROcodone bitartrate 5 mg oral tablet (8 sources) Opioid Agonist Start: 02-02-2023 End: 02-11-2023 Hydrocodone-Acetami nophen 5-325 mg tablet Discontinued 1 {tbl} PO EVERY 6 HOURS as needed for pain 5 February 02, 2023 February 11, 2023 1:36pm Start: 02-02-2023 End: 02-11-2023 take 1 tablet by mouth every six hours Hydrocodone-Acetaminophen Discontinued 1 TABLET PO EVERY 6 HOURS 5 February 02, 2023 February 11, 2023 1:36pm tamsulosin hydrochloride 0.4 mg oral capsule (8 sources) alpha-Adrenergic Taniya Start: 02-02-2023 End: 07-15-2023 take 1 capsule by mouth once daily Tamsulosin (Flomax) 0.4 mg capsule Discontinued 0.4 mg PO DAILY February 02, 2023 1:00am July 15, 2023 1:11pm Problems Problem Classification Problem Date Documented Date Episodic/Chronic Abdominal hernia (13 sources) Left inguinal hernia ; Translations: [Unilateral inguinal hernia, without obstruction or gangrene, not specified as recurrent] 01-15-2023 Episodic Cancer of prostate (1 source) Malignant neoplasm of prostate; Translations: [Malignant neoplasm of prostate] Onset: 08-16-2024 Chronic Diabetes mellitus without complication (8 sources) Diabetes mellitus; Translations: [Type 2 diabetes mellitus without complications] 01-15-2023 Chronic Disorders of lipid metabolism (8 sources) Hypercholesterolemia; Translations: [Pure hypercholesterolemia, unspecified] 01-15-2023 Chronic Essential hypertension (9 sources) Hypertensive disorder; Translations: [Essential (primary) hypertension] Onset: 11-26-2023 01-15-2023 Chronic Genitourinary symptoms and ill-defined conditions (8 sources) Retention of urine; Translations: [Retention of urine, unspecified] 02-02-2023 Episodic Inflammation; infection of eye (except that caused by tuberculosis or sexually transmitteddisease) (2 sources) Conjunctivitis; Translations: [Unspecified conjunctivitis] Onset: 09-25-2024 Episodic Other non-traumatic joint disorders (1 source) Pain in unspecified joint; Translations: [Pain in unspecified joint] Onset: 05-25-2024 Episodic Residual codes; unclassified (5 sources) Other specified postprocedural states; Translations: [Other postprocedural status] 02-11-2023 Episodic Results Test Name Value Interpretation Reference Range Facility PSA,Total- Diagnosticon 07-31 PSA, DIAGNOSTIC 6.65 ng/mL High 0.00-4.00 [facility] Comment on above: Result Comment: This test was performed using the [employer] tPSA method. Measured values of a patient??sample can vary depending on the testing procedure used. PSA values determined on patient samples by different testing procedures cannot be used interchangeably. If there is a change in PSA assays while monitoring therapy, sequential testing should be performed to confirm baseline values. Performed By: #### L 502.0250, L500.4100, L100.0100, L500.4050 #### [facility] [address] [place], [address] ANTINUCLEAR ANTIBODIES DIREC Ton 05-19-2024 [place],DIRECT Negative Normal Negative [facility] Comment on above: Result Comment: [facility]f [facility]med at: [facility] [address] [place], [place] [id number] Supervisor Pleating: Bull Rico PhD, Phone: [phone] Performed By: #### L 4600.0100, L3100.5475, L501.6710, L505.7010, L101.9900 #### [facility] [address] [place], [address] CCP IgG Antibodieson 025 CCP IgG Ab. 4 units Normal 0-19 [facility] Comment on above: Result Comment: Nega tive <20 Weak positive 20 - 39 Moderate positive 40 - 59 Strong positive >59 Performed at: [facility] [id number] Supervisor Pleating: Bull Rico PhD, Phone: [phone] Performed By: #### L 4600.0100, L3100.5475, L501.6710, L505.7010, L101.9900 #### [facility] [address] [place], [address] [place] serumOrdered By: Annamarie Medina on 05-17-2024 Anti-Nuclear Antibody Screen Negative Negative [facility] Comment on above: Performed at: [facility] [address] [id number] Director: Bull iRco PhD, Phone: [phone] CRPon 05-17-2024 C-REACTIVE PROT 15.70 mg/L High 0.0-3.0 [facility] Comment on above: Performed By: #### L 4600.0100, L3100.5475, L501.6710, L505.7010, L101.9900 #### [facility] [address] [place], [address] CRP [Mass/Vol]Ordered By: Marc Medina on 05-17-2024 C-Reactive Protein Extended Range 15.70 mg/L High 0.0-3.0 [facility] Cyclic citrullinated peptide IgG QnOrdered By: Annamarie Medina on 05-17-2024 Cyclic Citrullinated Peptide IgG Ab 4 units 0-19 [facility] Comment on above: Negative <20 Weak po sitive 20 - 39 Moderate positive 40 - 59 Strong positive >59Performed at: [address] [id number] Director: Bull Rico PhD, Phone: [phone] Erythrocyte Sed Rateon 05-17 SED RATE 18 mm/hr Normal 0-20 [facility] Comment on above: Performed By: #### L 4600.0100, L3100.5475, L501.6710, L505.7010, L101.9900 #### [facility] [address] [place], [place], [id number] Erythrocyte sedimentation ra teOrdered By: Annamarie Medina on 05-17-2024 ESR (Bld) [Velocity] 18 mm/h 0-20 [facility] Rheumatoid Factoron 05-18-19 25 RHEUMATOID FAC < 10.0 Normal <15 [facility] Comment on above: Performed By: #### L 4600.0100, L3100.5475, L501.6710, L505.7010, L101.9900 #### [facility] [address] [place], [address] Rheumatoid factor Ql (S)Orde red By: Annamarie Medina on 05-17-2024 Rheumatoid Factor < 10.0 IU/mL <15 [facility] Serum or plasma C reactive p rotein measurement (mass/volume)Ordered By: Annamarie Medina on 05-17-2024 CRP [Mass/Vol] 15.70 mg/L High 0.0-3.0 [facility] Serum or plasma cyclic citru llinated peptide IgG antibody assay (units/volume)Ordered By: Annamarie Medina on 05-17-2024 Cyclic citrullinated peptide IgG Qn 4 units 0-19 [facility] Comment on above: Negative <20 Weak po sitive 20 - 39 Moderate positive 40 - 59 Strong positive >59Performed at: - [facility] [place], [place] [id number] Director: Bull Rico PhD, Phone: [phone] Serum rheumatoid factor dete ctionOrdered By: Annamarie Medina on 05-17-2024 Rheumatoid factor Ql (S) < 10.0 IU/mL <15 [facility] Diagnostic total prostate sp ecific antigen (PSA) measurementOrdered By: Uma Crook on 02-13-2024 Prostate Specific Antigen Total 16.10 ng/mL High 0.0-4.0 [facility] Comment on above: This test was perfor med using the TPSA assay method for the[employer] chemistry system. Values obtained with differentassay methods cannot be used interchangably.When changing PSA assays in the course of monitoring apatient, additional sequential testing should be carriedout to confirm baseline values. PSA,Total- Diagnosticon 01-30 PSA, DIAGNOSTIC 16.10 ng/mL High 0.0-4.0 [facility] Comment on above: Result Comment: This test was performed using the TPSA assay method for the [employer] chemistry system. Values obtained with different assay methods cannot be used interchangably. When changing PSA assays in the course of monitoring a patient, additional sequential testing should be carried out to confirm baseline values. Performed By: #### L 501.9940 #### [facility] [address] [place], [address] CBC W/Diff, Automatedon 090 Absolute Lymph 1.37 X10 3/uL Normal 0.83-4.51 [facility] Comment on above: Performed By: #### L 502.0250, L500.4100, L100.0100, L500.4050 #### [facility] [address] [place], [address] Absolute Neut 3.7 X10 3/uL Normal 2.0-7.7 [facility] Comment on above: Performed By: #### L 502.0250, L500.4100, L100.0100, L500.4050 #### [facility] [address] [place], [address] Basophils/100 WBC (Bld) 0.5 % Normal 0-1 [facility] Comment on above: Performed By: #### L 502.0250, L500.4100, L100.0100, L500.4050 #### [facility] [address] [place], [address] Eosinophils/100 WBC (Bld) 1.1 % Normal 0-5 [facility] Comment on above: Performed By: #### L 502.0250, L500.4100, L100.0100, L500.4050 #### [facility] [address] [place], [address] Erythrocyte distribution width (RBC) [Ratio] 12.0 % Normal 11.6-14.6 [facility] Comment on above: Performed By: #### L 502.0250, L500.4100, L100.0100, L500.4050 #### [facility] [address] [place], [address] Hematocrit (Bld) [Volume fraction] 42.5 % Normal 40-54 [facility] Comment on above: Performed By: #### L 502.0250, L500.4100, L100.0100, L500.4050 #### [facility] [address] [place], [address] Hemoglobin (Bld) [Mass/Vol] 13.9 g/dL Normal 13.0-16.5 [facility] Comment on above: Performed By: #### L 502.0250, L500.4100, L100.0100, L500.4050 #### [facility] [address] [place], [address] IG% 0.200 Normal 0.0-0.9 [facility] Comment on above: Result Comment: IG% - Immature Granulocytes (promyelocytes, myelocytes and metamyelocytes) > 1% indicates that a LEFT SHIFT is Present. Performed By: #### L 502.0250, L500.4100, L100.0100, L500.4050 #### [facility] [address] [place], [address] Lymphocytes/100 WBC (Bld) 24.9 % Normal 19-41 [facility] Comment on above: Performed By: #### L 502.0250, L500.4100, L100.0100, L500.4050 #### [facility] [address] [place], [address] MCH (RBC) [Entitic mass] 30.4 pg Normal 27.0-32.0 [facility] Comment on above: Performed By: #### L 502.0250, L500.4100, L100.0100, L500.4050 #### [facility] [address] [place], [address] MCHC (RBC) [Mass/Vol] 32.7 g/dL Normal 32-36 [facility] Comment on above: Performed By: #### L 502.0250, L500.4100, L100.0100, L500.4050 #### [facility] [address] [place], [address] MCV (RBC) [Entitic vol] 93.0 fL Normal 80-94 [facility] Comment on above: Performed By: #### L 502.0250, L500.4100, L100.0100, L500.4050 #### [facility] [address] [place], [address] Monocytes/100 WBC (Bld) 5.5 % Normal 0-10 [facility] Comment on above: Performed By: #### L 502.0250, L500.4100, L100.0100, L500.4050 #### [facility] [address] [place], [address] Neutrophils/100 WBC (Bld) 67.8 % Normal 47-70 [facility] Comment on above: Performed By: #### L 502.0250, L500.4100, L100.0100, L500.4050 #### [facility] [address] [place], [address] Nucleated RBC (Bld) [#/Vol] 0 10*3/uL Normal 0-5 [facility] Comment on above: Performed By: #### L 502.0250, L500.4100, L100.0100, L500.4050 #### [facility] [address] [place], [address] Platelet mean volume (Bld) [Entitic vol] 9.7 fL Normal 6.2-12.0 [facility] Comment on above: Performed By: #### L 502.0250, L500.4100, L100.0100, L500.4050 #### [facility] [address] [place], [address] Platelets (Bld) [#/Vol] 197 10*3/uL Normal 150-450 [facility] Comment on above: Performed By: #### L 502.0250, L500.4100, L100.0100, L500.4050 #### [facility] [address] [place], [address] RBC (Bld) [#/Vol] 4.57 10*6/uL Low 4.6-6.2 [facility] Comment on above: Performed By: #### L 502.0250, L500.4100, L100.0100, L500.4050 #### [facility] [address] [place], [address] RDW SD 41.4 fl Normal 35.1-43.9 [facility] Comment on above: Performed By: #### L 502.0250, L500.4100, L100.0100, L500.4050 #### [facility] [address] [place], [address] WBC (Bld) [#/Vol] 5.5 10*3/uL Normal 4.4-11.0 [facility] Comment on above: Performed By: #### L 502.0250, L500.4100, L100.0100, L500.4050 #### [facility] [address] [place], [address] Comprehensive Metabolic Prof [facility] 11-07-2023 Albumin [Mass/Vol] 4.0 g/dL Normal 3.2-5.0 [facility] Comment on above: Performed By: #### L 502.0250, L500.4100, L100.0100, L500.4050 #### [facility] [address] [place], [address] Albumin/Globulin [Mass ratio] 1.2 {ratio} Normal 0.9-2.4 [facility] Comment on above: Performed By: #### L 502.0250, L500.4100, L100.0100, L500.4050 #### [facility] [address] [place], [address] ALK P 83 U/L Normal 45-117 [facility] Comment on above: Performed By: #### L 502.0250, L500.4100, L100.0100, L500.4050 #### [facility] [address] [place], [address] ALT [Catalytic activity/Vol] 41 U/L Normal 16-61 [facility] Comment on above: Performed By: #### L 502.0250, L500.4100, L100.0100, L500.4050 #### [facility] [address] [place], [address] AST [Catalytic activity/Vol] 23 U/L Normal 15-37 [facility] Comment on above: Performed By: #### L 502.0250, L500.4100, L100.0100, L500.4050 #### [facility] [address] [place], [address] Bilirubin [Mass/Vol] 0.50 mg/dL Normal 0.20-1.00 [facility] Comment on above: Result Comment: For patients on eltrombopag therapy, use of Dimension [place] TBIL is not recommended. Performed By: #### L 502.0250, L500.4100, L100.0100, L500.4050 #### [facility] [address] [place], [address] BUN/CRE 14.8 RATIO Normal 10-20 [facility] Comment on above: Performed By: #### L 502.0250, L500.4100, L100.0100, L500.4050 #### [facility] [address] [place], [address] CA,Total 9.5 mg/dL Normal 8.5-10.1 [facility] Comment on above: Performed By: #### L 502.0250, L500.4100, L100.0100, L500.4050 #### [facility] [address] [place], [address] Chloride [Moles/Vol] 109 mmol/L High 98-107 [facility] Comment on above: Performed By: #### L 502.0250, L500.4100, L100.0100, L500.4050 #### [facility] [address] [place], [address] CO2 [Moles/Vol] 29.0 mmol/L Normal 21.0-32.0 [facility] Comment on above: Performed By: #### L 502.0250, L500.4100, L100.0100, L500.4050 #### [facility] [address] [place], [address] Creatinine [Mass/Vol] 0.95 mg/dL Normal 0.70-1.30 [facility] Comment on above: Result Comment: The validity of the calculated GFR GFRAA in patients over 70 years has not been determined. Clinical correlation is essential. Performed By: #### L 502.0250, L500.4100, L100.0100, L500.4050 #### [facility] [address] [place], [address] EST GFR - AA 101 mL/min Normal >60 [facility] Comment on above: Result Comment: Afri can Somali GFR Calc Performed By: #### L 502.0250, L500.4100, L100.0100, L500.4050 #### [facility] [address] [place], [address] GAP 3 Low 5-15 [facility] Comment on above: Performed By: #### L 502.0250, L500.4100, L100.0100, L500.4050 #### [facility] [address] [place], [address] GFR/1.73 sq M.predicted among non-blacks MDRD (S/P/Bld) [Vol rate/Area] 84 mL/min/{1.73_m2} Normal >60 [facility] Comment on above: Result Comment: Non- GFR Calc Performed By: #### L 502.0250, L500.4100, L100.0100, L500.4050 #### [facility] [address] [place], [address] Globulin (S) [Mass/Vol] 3.4 g/dL Normal 2.2-4.2 [facility] Comment on above: Performed By: #### L 502.0250, L500.4100, L100.0100, L500.4050 #### [facility] [address] [place], [address] Glucose [Mass/Vol] 149 mg/dL High 74-106 [facility] Comment on above: Result Comment: Fast ing Glucose result greater than or equal to 126 mg/dL suggests DIABETES MELLITUS per A.D.A. criteria. Performed By: #### L 502.0250, L500.4100, L100.0100, L500.4050 #### [facility] [address] [place], [address] Potassium [Moles/Vol] 4.1 mmol/L Normal 3.5-5.1 [facility] Comment on above: Performed By: #### L 502.0250, L500.4100, L100.0100, L500.4050 #### [facility] [address] [place], [address] Sodium [Moles/Vol] 141 mmol/L Normal 136-145 [facility] Comment on above: Performed By: #### L 502.0250, L500.4100, L100.0100, L500.4050 #### [facility] [address] [place], [address] T PROT 7.4 g/dL Normal 6.4-8.2 [facility] Comment on above: Performed By: #### L 502.0250, L500.4100, L100.0100, L500.4050 #### [facility] [address] [place], [address] Urea nitrogen [Mass/Vol] 14 mg/dL Normal 7-18 [facility] Comment on above: Performed By: #### L 502.0250, L500.4100, L100.0100, L500.4050 #### [facility] [address] [place], [address] Lipid Profileon 11-07-2023 Cholesterol [Mass/Vol] 131 mg/dL Normal 200 [facility] Comment on above: Result Comment: <200 mg/dL Desirable 200-240 mg/dL Borderline >240 mg/dL High Risk Performed By: #### L 502.0250, L500.4100, L100.0100, L500.4050 #### [facility] [address] [place], [address] Cholesterol in HDL [Mass/Vol] 55 mg/dL Normal [facility] Comment on above: Result Comment: The drugs N-Acetylcysteine and Metamizole may falsely depress this assay. Reference Range HDL <40 mg/dL Low HDL Cholesterol HDL >or= 60 mg/dL High HDL Cholesterol Performed By: #### L 502.0250, L500.4100, L100.0100, L500.4050 #### [facility] [address] [place], [address] Cholesterol in LDL [Mass/Vol] 52 mg/dL Normal 0-130 [facility] Comment on above: Performed By: #### L 502.0250, L500.4100, L100.0100, L500.4050 #### [facility] [address] [place], [address] Cholesterol in VLDL [Mass/Vol] 24 mg/dL Normal 5-40 [facility] Comment on above: Performed By: #### L 502.0250, L500.4100, L100.0100, L500.4050 #### [facility] [address] [place], [address] Triglyceride [Mass/Vol] 118 mg/dL Normal [facility] Comment on above: Result Comment: The drugs N-Acetylcysteine and Metamizole may falsely depress this assay. Serum Triglycerides Reference Interval Normal <150 mg/dL Borderline high 150 - 199 mg/dL High 200 - 499 mg/dL Very High > or = 500 mg/dL Performed By: #### L 502.0250, L500.4100, L100.0100, L500.4050 #### [facility] [address] [place], [address] Microalb:Creat Ratio,Random URon 11-07-2023 Creatinine [Mass/Vol] 89.20 mg/dL Normal NO RANGE EST. [facility] Comment on above: Performed By: #### L 502.0250, L500.4100, L100.0100, L500.4050 #### [facility] [address] [place], [address] MALB:CRE 24.0 mg/g CRE Normal <30 mg/g CRE [facility] Comment on above: Performed By: #### L 502.0250, L500.4100, L100.0100, L500.4050 #### [facility] [address] [place], [address] MICROALBUMIN,UR 21.4 mg/L Normal NO RANGE EST. [facility] Comment on above: Performed By: #### L 502.0250, L500.4100, L100.0100, L500.4050 #### [facility] [address] [place], [address] Basophil percentageOrdered B y: Uma Crook on 05-26-2023 Basophil percentage 11.10 ng/mL 0.0-4.0 [facility] Comment on above: This test was perfor med using the TPSA assay method for the[facility] system. Values obtained with differentassay methods cannot be used interchangably.When changing PSA assays in the course of monitoring apatient, additional sequential testing should be carriedout to confirm baseline values. Basophil percentageOrdered B y: Turner Gupta on 04-28-2023 Basophil percentage < 1.0 mg/dL 0.70-1.30 [facility] No Panel InformationOrdered By: Turner Gupta on 04-28-2023 Bedside Estimated GFR (eGFR) > 60.0000 mL/min >60 [facility] Basophil percentageOrdered B y: Turner Gupta on 04-20-2023 Basophil percentage 20.60 ng/mL 0.0-4.0 [facility] Comment on above: This test was perfor med using the TPSA assay method for the[facility] chemistry system. Values obtained with differentassay methods cannot be used interchangably.When changing PSA assays in the course of monitoring apatient, additional sequential testing should be carriedout to confirm baseline values. Thin prep Papanicolaou smear with manual screeningOrdered By: Turner Gupta on 04-03-2023 Thin prep Papanicolaou smear with manual screening 92 mg/dL 74-106 [facility] Comment on above: MANAGEMENT OF PATIEN T CARE PER NURSING PROTOCOL Glucose Glucometer (BldC) [M ass/Vol]Ordered By: James King on 02-02-2023 Glucose [Mass/Vol] 136 mg/dL 74-106 [facility] Comment on above: MANAGEMENT OF PATIEN T CARE PER NURSING PROTOCOL Basophil percentageOrdered B y: James King on 01-28-2023 Chloride [Moles/Vol] 108 mmol/L 98-107 [facility] Glucose [Mass/Vol] 73 mg/dL 74-106 [facility] Potassium [Moles/Vol] 4.2 mmol/L 3.5-5.1 [facility] Sodium [Moles/Vol] 140 mmol/L 136-145 [facility] WBC (Bld) [#/Vol] 5.6 10*3/uL 4.4-11.0 [facility] Blood erythrocytes count (nu mber/volume)Ordered By: James King on 01-28-2023 RBC (Bld) [#/Vol] 4.49 10*6/uL 4.6-6.2 [facility] Blood hemoglobin measurement (mass/volume)Ordered By: James King on 01-28-2023 Hemoglobin (Bld) [Mass/Vol] 13.8 g/dL 13.0-16.5 [facility] Blood platelet mean volumeOr dered By: James King on 01-28-2023 Platelet mean volume (Bld) [Entitic vol] 9.5 fL 6.2-12.0 [facility] Determination of erythrocyte mean corpuscular volume (MCV)Ordered By: James King on 01-28-2023 MCV (RBC) [Entitic vol] 94.0 fL 80-94 [facility] Hematocrit Auto (Bld) [Volum e fraction]Ordered By: James King on 01-28-2023 Hematocrit (Bld) [Volume fraction] 42.2 % 40-54 [facility] - Chemistry and C hemistry - challengeOrdered By: James King on 01-28-2023 CO2 [Moles/Vol] 30.0 mmol/L 21.0-32.0 [facility] Urea nitrogen/Creatinine [Mass ratio] 28.0 mg/mg 10-20 [facility] - Hematology and Cell countsOrdered By: James King on 01-28-2023 Erythrocyte distribution width (RBC) [Entitic vol] 41.3 fL 35.1-43.9 [facility] Erythrocyte distribution width (RBC) [Ratio] 11.9 % 11.6-14.6 [facility] MCH (RBC) [Entitic mass] 30.7 pg 27.0-32.0 [facility] MCHC Auto (RBC) [Mass/Vol]Or dered By: James King on 01-28-2023 MCHC (RBC) [Mass/Vol] 32.7 g/dL 32-36 [facility] No Panel InformationOrdered By: James King on 01-28-2023 Estimated GFR (MDRD) Amer 96 mL/min >60 [facility] Comment on above: GFR Calc Estimated GFR (MDRD) Non-Af Amer 79 mL/min >60 [facility] Comment on above: Non- GFR Calc Platelets bldOrdered By: Geoffrey King on 01-28-2023 Platelets (Bld) [#/Vol] 211 10*3/uL 150-450 [facility] Serum or plasma calcium shaun urement (mass/volume)Ordered By: James King on 01-28-2023 Calcium [Mass/Vol] 8.8 mg/dL 8.5-10.1 [facility] Serum or plasma creatinine m easurement (mass/volume)Ordered By: James King on 01-28-2023 Creatinine [Mass/Vol] 1.00 mg/dL 0.70-1.30 [facility] Comment on above: The validity of the calculated GFR & GFRAA in patients over 70 years has not been determined. Clinical correlation is essential. Serum or plasma urea nitroge n measurement (mass/volume)Ordered By: James King on 01-28-2023 Urea nitrogen [Mass/Vol] 28 mg/dL 7-18 [facility] Thin prep Papanicolaou smear with manual screeningOrdered By: James King on 01-28-2023 Thin prep Papanicolaou smear with manual screening 2 5-15 [facility] Whole blood hemoglobin A1c/t otal hemoglobin ratio (mass fraction)Ordered By: Jayjay Villarreal on 01-28-2023 HbA1c (Bld) [Mass fraction] 6.8 % 3.8-5.6 [facility] Comment on above: Normal < 5.7 % Predi abetic 5.7 - 6.4 % Diabetic >or= 6.5 % Please note range changes. Absolute lymphocyte countOrd ered By: Annamarie Medina on 12-20-2022 Lymphocytes Auto (Unsp spec) [#/Vol] 1.31 10*3/uL 0.83-4.51 [facility] Basophil percentageOrdered B y: Annamarie Medina on 12-20-2022 Basophils/100 WBC (Bld) 0.4 % 0-1 [facility] Bilirubin [Mass/Vol] 0.60 mg/dL 0.20-1.00 [facility] Comment on above: For patients on eltr ombopag therapy, use of Dimension [place] TBIL is not recommended. Chloride [Moles/Vol] 105 mmol/L 98-107 [facility] Cholesterol [Mass/Vol] 126 mg/dL <200 [facility] Comment on above: <200 mg/dL Desirable 200-240 mg/dL Borderline >240 mg/dL High Risk Eosinophils/100 WBC (Bld) 1.4 % 0-5 [facility] Glucose [Mass/Vol] 132 mg/dL 74-106 [facility] Comment on above: Fasting Glucose resu lt greater than or equal to 126 mg/dL suggests DIABETES MELLITUS per A.D.A. criteria. Neutrophils (Bld) [#/Vol] 3.3 10*3/uL 2.0-7.7 [facility] Neutrophils/100 WBC (Bld) 64.7 % 47-70 [facility] Potassium [Moles/Vol] 3.9 mmol/L 3.5-5.1 [facility] Protein [Mass/Vol] 7.3 g/dL 6.4-8.2 [facility] Sodium [Moles/Vol] 142 mmol/L 136-145 [facility] Triglyceride [Mass/Vol] 73 mg/dL <199 [facility] Comment on above: The drugs N-Acetylcy steine and Metamizole may falsely depress this assay.Serum Triglycerides Reference Interval Normal <150 mg/dL Borderline high 150 - 199 mg/dL High 200 - 499 mg/dL Very High > or = 500 mg/dL WBC (Bld) [#/Vol] 5.1 10*3/uL 4.4-11.0 [facility] Blood erythrocytes count (nu mber/volume)Ordered By: Annamarie Medina on 12-20-2022 RBC (Bld) [#/Vol] 4.68 10*6/uL 4.6-6.2 [facility] Blood hemoglobin measurement (mass/volume)Ordered By: Annamarie Medina on 12-20-2022 Hemoglobin (Bld) [Mass/Vol] 14.5 g/dL 13.0-16.5 [facility] Blood lymphocytes/100 leukoc ytesOrdered By: Annamarie Medina on 12-20-2022 Lymphocytes/100 WBC (Bld) 25.8 % 19-41 [facility] Blood monocytes/100 leukocyt esOrdered By: Annamarie Medina on 12-20-2022 Monocytes/100 WBC (Bld) 7.5 % 0-10 [facility] Blood platelet mean volumeOr dered By: Annamarie Medina on 12-20-2022 Platelet mean volume (Bld) [Entitic vol] 9.9 fL 6.2-12.0 [facility] Determination of erythrocyte mean corpuscular volume (MCV)Ordered By: Annamarie Medina on 12-20-2022 MCV (RBC) [Entitic vol] 94.0 fL 80-94 [facility] Hematocrit Auto (Bld) [Volum e fraction]Ordered By: Annamarie Medina on 12-20-2022 Hematocrit (Bld) [Volume fraction] 44.0 % 40-54 [facility] - Chemistry and C hemistry - challengeOrdered By: Annamarie Medina on 12-20-2022 ALP [Catalytic activity/Vol] 75 U/L 45-117 [facility] ALT [Catalytic activity/Vol] 50 U/L 16-61 [facility] CO2 [Moles/Vol] 31.0 mmol/L 21.0-32.0 [facility] Globulin (S) [Mass/Vol] 3.2 g/dL 2.2-4.2 [facility] Urea nitrogen/Creatinine [Mass ratio] 21.9 mg/mg 10-20 [facility] - Hematology and Cell countsOrdered By: Annamarie Medina on 12-20-2022 Erythrocyte distribution width (RBC) [Entitic vol] 41.2 fL 35.1-43.9 [facility] Erythrocyte distribution width (RBC) [Ratio] 11.9 % 11.6-14.6 [facility] Immature granulocytes/100 WBC (Bld) 0.200 % 0.0-0.9 [facility] Comment on above: IG% - Immature Granu locytes (promyelocytes, myelocytes and metamyelocytes) > 1% indicates that a LEFT SHIFT is Present. MCH (RBC) [Entitic mass] 31.0 pg 27.0-32.0 [facility] Nucleated RBC/100 WBC (Bld) [Ratio] 0 % 0-5 [facility] MCHC Auto (RBC) [Mass/Vol]Or dered By: Annamarie Medina on 12-20-2022 MCHC (RBC) [Mass/Vol] 33.0 g/dL 32-36 [facility] No Panel InformationOrdered By: Annamarie Medina on 12-20-2022 Estimated GFR (MDRD) Amer 112 mL/min >60 [facility] Comment on above: GFR Calc Estimated GFR (MDRD) Non-Af Amer 93 mL/min >60 [facility] Comment on above: Non- GFR Calc Urine Microalbumin/Creatinine Ratio 7.1 mg/g CRE <30 [facility] Platelets bldOrdered By: Antoni Medina on 12-20-2022 Platelets (Bld) [#/Vol] 207 10*3/uL 150-450 [facility] Serum or plasma albumin shaun urement (mass/volume)Ordered By: Annamarie Medina on 12-20-2022 Albumin [Mass/Vol] 4.1 g/dL 3.2-5.0 [facility] Serum or plasma albumin/glob ulin mass ratioOrdered By: Annamarie Medina on 12-20-2022 Albumin/Globulin [Mass ratio] 1.3 {ratio} 0.9-2.4 [facility] Serum or plasma calcium shaun urement (mass/volume)Ordered By: Annamarie Medina on 12-20-2022 Calcium [Mass/Vol] 9.0 mg/dL 8.5-10.1 [facility] Serum or plasma cholesterol in HDL measurement (mass/volume)Ordered By: Annamarie Medina on 12-20-2022 Cholesterol in HDL [Mass/Vol] 57 mg/dL >40 [facility] Comment on above: The drugs N-Acetylcy steine and Metamizole may falsely depress this assay. Reference Range HDL <40 mg/dL Low HDL Cholesterol HDL >or= 60 mg/dL High HDL Cholesterol Serum or plasma cholesterol in VLDL measurement (mass/volume)Ordered By: Annamarie Medina on 12-20-2022 Cholesterol in VLDL [Mass/Vol] 15 mg/dL 5-40 [facility] Serum or plasma creatinine m easurement (mass/volume)Ordered By: Annamarie Medina on 12-20-2022 Creatinine [Mass/Vol] 0.87 mg/dL 0.70-1.30 [facility] Comment on above: The validity of the calculated GFR & GFRAA in patients over 70 years has not been determined. Clinical correlation is essential. Serum or plasma low density lipoprotein (LDL) cholesterol measurement (mass/volume)Ordered By: Annamarie Medina on 12-20-2022 Cholesterol in LDL [Mass/Vol] 54 mg/dL 0-130 [facility] Serum or plasma urea nitroge n measurement (mass/volume)Ordered By: Annamarie Medina on 12-20-2022 Urea nitrogen [Mass/Vol] 19 mg/dL 7-18 [facility] Thin prep Papanicolaou smear with manual screeningOrdered By: Annamarie Medina on 12-20-2022 Thin prep Papanicolaou smear with manual screening 32 U/L 15-37 [facility] Thin prep Papanicolaou smear with manual screening 6 5-15 [facility] Thin prep Papanicolaou smear with manual screening 6.0 mg/L NO RANGE EST. [facility] Urine creatinine measurement (mass/volume)Ordered By: Annamarie Medina on 12-20-2022 Creatinine (U) [Mass/Vol] 84.50 mg/dL NO RANGE EST. [facility] Absolute lymphocyte countOrd ered By: Fatuma Starr on 07-05-2022 Lymphocytes Auto (Unsp spec) [#/Vol] 1.35 10*3/uL 0.83-4.51 [facility] Basophil percentageOrdered B y: Fatuma Starr on 07-05-2022 Basophils/100 WBC (Bld) 0.9 % 0-1 [facility] Bilirubin [Mass/Vol] 0.40 mg/dL 0.20-1.00 [facility] Comment on above: For patients on eltr ombopag therapy, use of Dimension [place] TBIL is not recommended. Chloride [Moles/Vol] 109 mmol/L 98-107 [facility] Cholesterol [Mass/Vol] 130 mg/dL <200 [facility] Comment on above: <200 mg/dL Desirable 200-240 mg/dL Borderline >240 mg/dL High Risk Eosinophils/100 WBC (Bld) 1.3 % 0-5 [facility] Glucose [Mass/Vol] 118 mg/dL 74-106 [facility] Comment on above: Fasting Glucose resu lt from 100 to 125 mg/dL suggests IMPAIRED HOMEOSTASIS per A.D.A. criteria. Neutrophils (Bld) [#/Vol] 2.8 10*3/uL 2.0-7.7 [facility] Neutrophils/100 WBC (Bld) 61.1 % 47-70 [facility] Potassium [Moles/Vol] 3.9 mmol/L 3.5-5.1 [facility] Protein [Mass/Vol] 7.0 g/dL 6.4-8.2 [facility] Sodium [Moles/Vol] 141 mmol/L 136-145 [facility] Triglyceride [Mass/Vol] 74 mg/dL <199 [facility] Comment on above: The drugs N-Acetylcy steine and Metamizole may falsely depress this assay.Serum Triglycerides Reference Interval Normal <150 mg/dL Borderline high 150 - 199 mg/dL High 200 - 499 mg/dL Very High > or = 500 mg/dL WBC (Bld) [#/Vol] 4.6 10*3/uL 4.4-11.0 [facility] Blood erythrocytes count (nu mber/volume)Ordered By: Fatuma Starr on 07-05-2022 RBC (Bld) [#/Vol] 4.65 10*6/uL 4.6-6.2 [facility] Blood hemoglobin measurement (mass/volume)Ordered By: Fatuma Starr on 07-05-2022 Hemoglobin (Bld) [Mass/Vol] 14.1 g/dL 13.0-16.5 [facility] Blood lymphocytes/100 leukoc ytesOrdered By: Fatuma Starr on 07-05-2022 Lymphocytes/100 WBC (Bld) 29.2 % 19-41 [facility] Blood monocytes/100 leukocyt esOrdered By: Fatuma Starr on 07-05-2022 Monocytes/100 WBC (Bld) 7.3 % 0-10 [facility] Blood platelet mean volumeOr dered By: Fatuma Starr on 07-05-2022 Platelet mean volume (Bld) [Entitic vol] 9.9 fL 6.2-12.0 [facility] Determination of erythrocyte mean corpuscular volume (MCV)Ordered By: Fatuma Starr on 07-05-2022 MCV (RBC) [Entitic vol] 92.7 fL 80-94 [facility] Hematocrit Auto (Bld) [Volum e fraction]Ordered By: Fatuma Starr on 07-05-2022 Hematocrit (Bld) [Volume fraction] 43.1 % 40-54 [facility] - Chemistry and C hemistry - challengeOrdered By: Fatuma Starr on 07-05-2022 ALP [Catalytic activity/Vol] 63 U/L 45-117 [facility] ALT [Catalytic activity/Vol] 40 U/L 16-61 [facility] CO2 [Moles/Vol] 28.0 mmol/L 21.0-32.0 [facility] Globulin (S) [Mass/Vol] 3.2 g/dL 2.2-4.2 [facility] Urea nitrogen/Creatinine [Mass ratio] 20.1 mg/mg 10-20 [facility] - Hematology and Cell countsOrdered By: Fatuma Starr on 07-05-2022 Erythrocyte distribution width (RBC) [Entitic vol] 40.9 fL 35.1-43.9 [facility] Erythrocyte distribution width (RBC) [Ratio] 12.0 % 11.6-14.6 [facility] Immature granulocytes/100 WBC (Bld) 0.200 % 0.0-0.9 [facility] Comment on above: IG% - Immature Granu locytes (promyelocytes, myelocytes and metamyelocytes) > 1% indicates that a LEFT SHIFT is Present. MCH (RBC) [Entitic mass] 30.3 pg 27.0-32.0 [facility] Nucleated RBC/100 WBC (Bld) [Ratio] 0 % 0-5 [facility] MCHC Auto (RBC) [Mass/Vol]Or dered By: Fatuma Starr on 07-05-2022 MCHC (RBC) [Mass/Vol] 32.7 g/dL 32-36 [facility] No Panel InformationOrdered By: Fatuma Starr on 07-05-2022 Estimated GFR (MDRD) Amer 109 mL/min >60 [facility] Comment on above: GFR Calc Estimated GFR (MDRD) Non-Af Amer 90 mL/min >60 [facility] Comment on above: Non- GFR Calc Prostate Specific Antigen Screen 75.50 ng/mL 0.00-4.00 [facility] Comment on above: This test was perfor med using the TPSA assay method for the[employer] chemistry system. Values obtained with differentassay methods cannot be used interchangably.When changing PSA assays in the course of monitoring apatient, additional sequential testing should be carriedout to confirm baseline values. Platelets bldOrdered By: Mandi Starr on 07-05-2022 Platelets (Bld) [#/Vol] 192 10*3/uL 150-450 [facility] Serum or plasma albumin shaun urement (mass/volume)Ordered By: Fatuma Starr on 07-05-2022 Albumin [Mass/Vol] 3.8 g/dL 3.2-5.0 [facility] Serum or plasma albumin/glob ulin mass ratioOrdered By: Fatuma Starr on 07-05-2022 Albumin/Globulin [Mass ratio] 1.2 {ratio} 0.9-2.4 [facility] Serum or plasma calcium shaun urement (mass/volume)Ordered By: Fatuma Starr on 07-05-2022 Calcium [Mass/Vol] 9.0 mg/dL 8.5-10.1 [facility] Serum or plasma cholesterol in HDL measurement (mass/volume)Ordered By: Fatuma Starr on 07-05-2022 Cholesterol in HDL [Mass/Vol] 57 mg/dL >40 [facility] Comment on above: The drugs N-Acetylcy steine and Metamizole may falsely depress this assay. Reference Range HDL <40 mg/dL Low HDL Cholesterol HDL >or= 60 mg/dL High HDL Cholesterol Serum or plasma cholesterol in VLDL measurement (mass/volume)Ordered By: Fatuma Starr on 07-05-2022 Cholesterol in VLDL [Mass/Vol] 15 mg/dL 5-40 [facility] Serum or plasma creatinine m easurement (mass/volume)Ordered By: Fatuma Starr on 07-05-2022 Creatinine [Mass/Vol] 0.90 mg/dL 0.70-1.30 [facility] Comment on above: The validity of the calculated GFR & GFRAA in patients over 70 years has not been determined. Clinical correlation is essential. Serum or plasma low density lipoprotein (LDL) cholesterol measurement (mass/volume)Ordered By: Fatuma Starr on 07-05-2022 Cholesterol in LDL [Mass/Vol] 58 mg/dL 0-130 [facility] Serum or plasma urea nitroge n measurement (mass/volume)Ordered By: Fatuma Starr on 07-05-2022 Urea nitrogen [Mass/Vol] 18 mg/dL 7-18 [facility] Thin prep Papanicolaou smear with manual screeningOrdered By: Fatuma Starr on 07-05-2022 Thin prep Papanicolaou smear with manual screening 34 U/L 1537 [facility] Thin prep Papanicolaou smear with manual screening 4 5-15 [facility] Vital Signs Date Time Vital Sign Value Performing Clinician Bro rodriguez 04-04-2023 10:15-0500 Body temperature 98.4 [degF] Dr. Browning [facility] 04-04-2023 10:15-0500 Diastolic blood pressure 68 mm[Hg] Dr. Browning [facility] 04-04-2023 10:15-0500 Heart rate 66 /min Dr. Browning [facility] 04-04-2023 10:15-0500 Respiratory rate 16 /min Dr. Browning [facility] 04-04-2023 10:15-0500 SaO2% (BldA) [Mass fraction] 98 % Dr. Browning [facility] 04-04-2023 10:15-0500 Systolic blood pressure 134 mm[Hg] Dr. Browning [facility] 04-04-2023 07:50-0500 Body temperature 97.8 [degF] Dr. Browning [facility] 04-04-2023 07:50-0500 Diastolic blood pressure 79 mm[Hg] Dr. Browning [facility] 04-04-2023 07:50-0500 Heart rate 67 /min Dr. Browning [facility] 04-04-2023 07:50-0500 Respiratory rate 16 /min Dr. Browning [facility] 04-04-2023 07:50-0500 SaO2% (BldA) [Mass fraction] 96 % Dr. Browning [facility] 04-04-2023 07:50-0500 Systolic blood pressure 124 mm[Hg] Dr. Browning [facility] 04-03-2023 08:45-0500 Body height 177.[address] Browning [facility] 04-03-2023 08:45-0500 Body mass index (BMI) [Ratio] 24.2 kg/m2 Dr. Browning [facility] 04-03-2023 08:45-0500 Body weight 76.[address] Browning [facility] 02-02-2023 12:10-0500 Body temperature 97.9 [degF] Dr. Browning [facility] 02-02-2023 12:10-0500 Diastolic blood pressure 71 mm[Hg] Dr. Browning [facility] 02-02-2023 12:10-0500 Heart rate 67 /min Dr. Browning [facility] 02-02-2023 12:10-0500 Respiratory rate 14 /min Dr. Browning [facility] 02-02-2023 12:10-0500 SaO2% (BldA) [Mass fraction] 96 % Dr. Browning [facility] 02-02-2023 12:10-0500 Systolic blood pressure 121 mm[Hg] Dr. Browning [facility] 02-02-2023 07:15-0500 Body height 177.[address] Browning [facility] 02-02-2023 07:15-0500 Body mass index (BMI) [Ratio] 23.3 kg/m2 Dr. Browning [facility] 02-02-2023 07:15-0500 Body weight [address] Browning [facility] 01-15-2023 15:05-0500 Body mass index (BMI) [Ratio] 23.3 kg/m2 Dr. Browning [facility] 01-15-2023 15:05-0500 Body weight [address] Browning [facility] 01-15-2023 15:05-0500 Diastolic blood pressure 75 mm[Hg] Dr. Browning [facility] 01-15-2023 15:05-0500 Heart rate 65 /min Dr. Browning [facility] 01-15-2023 15:05-0500 Respiratory rate 16 /min Dr. Browning [facility] 01-15-2023 15:05-0500 Systolic blood pressure 127 mm[Hg] Dr. Browning [facility] Encounters Encounter Date Encounter Type Care Provider Facility Start: 09-25-2024 End: 09-25-2024 Emergency department patient visit DR SON MALDONADO DO [facility] Start: 08-10-2024 End: 08-10-[address] Annamarie Medina MD Work Phone: [facility] Work Phone: Start: 08-10-2024 End: 08-10-2024 Patient encounter procedure [facility] Work Phone: Start: 08-10-2024 End: 08-10-2024 ambulatory Uma Crook Facility:[facility] Start: 05-17-2024 End: 05-17-[address] Annamarie Medina MD Work Phone: [facility] Work Phone: Start: 05-17-2024 End: 05-17-[address] Annamarie Medina MD -Lab Survey, Non Patient Start: 05-17-2024 End: 05-17-2024 ambulatory Annamarie Medina Facility:[facility] Start: 02-13-2024 End: 02-13-2024 Patient encounter procedure [facility] Work Phone: Start: 02-13-2024 End: 02-13-2024 ambulatory Annamarie Medina Facility:[facility] Start: 11-07-2023 End: 11-07-2023 ambulatory Annamarie Medina Facility:[facility] Start: 05-26-2023 End: 05-26-[address] Annamarie Medina Work Phone: [facility] Work Phone: Start: 05-26-2023 End: 05-26-[address] Annamarie Medina Work Phone: [facility]-Laboratory, Specimen Work Phone: Start: 05-04-2023 End: 05-04-[address] Nam Olivia [facility] Work Phone: Start: 05-04-2023 End: 05-04-[address] Nam Olivia [facility]-Nuclear Medicine, [facility] Work Phone: Start: 04-28-2023 End: 04-28-[address] Nam Olivia [facility] Work Phone: Start: 04-28-2023 End: 04-28-[address] Nam Olivia [facility]-Cat Scan, [facility] Work Phone: Start: 04-20-2023 End: 04-20-[address] Browning [facility] Work Phone: Start: 04-20-2023 End: 04-20-[address] [facility] Start: 04-03-2023 End: 04-04-2023 Admission to same day surgery center Dr. Nam Olivia [facility]-Surgical Day Care Start: 04-03-2023 End: 04-04-[address] Browning [facility] Work Phone: Start: 02-11-2023 End: 02-11-[address] Nam Olivia [facility] Work Phone: Start: 02-02-2023 Non-patient / Non-visit Dr. Nam andres [facility] Start: 02-02-2023 End: 02-02-2023 Admission to same day surgery center Dr. Nam Olivia [facility] Start: 02-02-2023 End: 02-02-[address] Nam Olivia [facility] Work Phone: Start: 01-28-2023 End: 01-28-2023 Non-patient / Non-visit Dr. Nam Olivia [facility] Work Phone: Start: 01-15-2023 End: 01-15-[address] Nam Olivia [facility] Work Phone: Start: 12-20-2022 End: 12-20-2022 ambulatory [facility] Work Phone: Start: 12-20-2022 End: 12-20-2022 Patient encounter procedure [facility]-Laboratory Work Phone: Start: 07-05-2022 End: 07-05-2022 ambulatory [facility] Work Phone: Start: 07-05-2022 End: 07-05-2022 Patient encounter procedure [facility]-Laboratory Procedures Date Procedure Procedure Detail Performing Clinician Start: 08-10-2024 Assay of prostate specific antigen total Dr. Annamarie Medina MD Work Phone: Comment on above: This test was perfor med using the [employer] tPSA method. Measured values of a patient sample can vary depending on the testing procedure used. PSA values determined on patient samples by different testing procedures cannot be used interchangeably. If there is a change in PSA assays while monitoring therapy, sequential testing should be performed to confirm baseline values. Start: 05-17-[address] Antoni Medina MD Work Phone: Comment on above: Performed at: [place] [id number] Director: Bull Rico PhD, Phone: [phone] Start: 05-04-2023 Radionuclide whole b williams bone study Dr. Nam Olivia Start: 04-28-2023 Computed tomography of abdomen and pelvis with intravenous contrast Dr. Nam Olivia Start: 04-03-2023 Cysto,Transurethral Resection Prostate (Not Applicable) Dr. Nam Olivia Start: 02-02-2023 Laparoscopic, Inguin al Hernia Repair (Left) Dr. Nam Olivia History of repair of inguinal hernia S/P inguinal hernia repair Dr. Nam Olivia Plan of Treatment Date Care Activity Detail Author Start: 04-04-2023 Patient discharge [facility] Start: 04-04-2023 Removal of urinary catheter [facility] Start: 04-03-2023 Anesthesia transurethral resection of prostate ANESTH REMOVAL OF PROSTATE [facility] Start: 04-03-2023 Trurl electrosurg rescj prostate bleed complete PROSTATECTOMY (TURP) [facility] Start: 04-03-2023 Application of intermittent pneumatic compression device [facility] Start: 04-03-2023 Following clinical pathway protocol [facility] Start: 04-03-2023 Admission procedure [facility] Start: 04-03-2023 Deep breathing and coughing exercises [facility] Start: 04-03-2023 Irrigation of urinary bladder [facility] Start: 04-03-2023 Measuring intake and output [facility] Start: 04-03-2023 Patient education [facility] Start: 04-03-2023 Provision of activity privileges [facility] Start: 04-03-2023 Taking patient vital signs [facility] Start: 04-03-2023 Vital signs measurements [facility] Start: 04-03-2023 [facility] Start: 02-02-2023 Anesthesia intraperitoneal lower abd w/laps nos ANESTH SURG LOWER ABDOMEN [facility] Start: 02-02-2023 Laparoscopy surg rpr initial inguinal hernia LAP ING HERNIA REPAIR INIT [facility] Start: 02-02-2023 Patient discharge [facility] Patient referral [facility] Work Phone: Immunizations Immunization Date Immunization Notes Care Provider Monalisa trammell 11-30-2022 influenza, injectabl e, quadrivalent, preservative free Dr. Nam Olivia [facility] Payers Date Payer Category Payer Private Health Insurance [id number] 2023 Self-pay [id number] 2023 Unknown [id number] 1955 Unknown [id number] Unknown [facility] [id number] Unknown [id number] Unknown [id number] Unknown [id number] Unknown [id number] Social History Date Type Detail Facility Tobacco smoking stat [facility] Unknown if ever smoked [facility] Work Phone: Start: 1955 Sex Assigned At Male [facility] Start: 01-23-2023 End: 03-20-2023 Tobacco smoking status DEIS Unknown if ever smoked [facility] Start: 07-24-2023 Tobacco smoking stat [facility] Ex-smoker (finding) [facility] Start: 05-25-2024 End: 09-25-2024 Sex Male (finding) [facility] Tobacco smoking status [facility] Medical Equipment Procedure Code Equipment Code Equipment Origin al Text Equipment Identifier Dates TESSA CHÁVEZ FDA Start: 02-02-2023 TESSA CHÁVEZ FDA Start: 02-02-2023 ([id number]) Extra-gynaecolog ical surgical mesh, synthetic polymer, non-bioabsorbable [id number] FDA Start: 02-02-2023 Endoscopic manua l linear stapler [id number] FDA Start: 02-02-2023 TESSA CHÁVEZ FDA Start: 02-02-2023 TESSA CHÁVEZ FDA Start: 02-02-2023 TESSA CHÁVEZ FDA Start: 02-02-2023 TESSA CHÁVEZ FDA Start: 02-02-2023 TESSA CHÁVEZ FDA Start: 02-02-2023 TESSA CHÁVEZ FDA Start: 02-02-2023 TESSA CHÁVEZ FDA Start: 02-02-2023 TESSA CHÁVEZ FDA Start: 02-02-2023 TESSA CHÁVEZ FDA Start: 02-02-2023 TESSA CHÁVEZ FDA Start: 02-02-2023 TESSA CHÁVEZ FDA Start: 02-02-2023 TESSA CHÁVEZ FDA Start: 02-02-2023 Goals Date Patient Goal Desired Activity /State Functional Status Date Assessment Result Facility 04-04-2023 Functional status Ambulates;Chair [facility] Work Phone: Mental Status Date Assessment Result Facility 04-04-2023 Cognitive function Level Of Cons ciousness Awake;Alert;Appropriate;Follow s Commands [facility] Work Phone: 04-04-2023 Cognitive function Voice/Name [facility] Work Phone: 02-02-2023 Cognitive function Voice/Name [facility] Work Phone: Clinical Notes 02-02-2023 to 09-25-2024 Note Date & Type Note Facility 09-25-2024 Hospital Discharg e instructions Patient Education 09/25/2024 08:15:11 Conjunctivitis, Non-Specific Conjunctivitis, Nonspecific The membrane that covers the white part of your eye (the conjunctiva) is inflamed. Inflammation happens when your body responds to an injury, allergic reaction, infection, or illness. Symptoms of inflammation in the eye may include redness, irritation, itching, swelling, or burning. These symptoms should go away within the next 24 hours. Conjunctivitis may be related to a particle that was in your eye. If so, it may wash out with your tears or irrigation treatment. Being exposed to liquid chemicals or fumes may also cause this reaction. Home care Apply a cold pack over the eye for 20 minutes at a time. This will reduce pain. To make a cold pack, put ice cubes in a plastic bag that seals at the top. Wrap the bag in a clean, thin towel or cloth. Artificial tears may be prescribed to reduce irritation or redness. These should be used 3 to 4 times a day. You may use acetaminophen or ibuprofen to control pain, unless another medicine was prescribed. (Note: If you have chronic liver or kidney disease, or if you have ever had a stomach ulcer or gastrointestinal bleeding, talk with your healthcare provider before using these medicines.) Follow-up care Follow up with your healthcare provider, or as advised. When to seek medical advice Call your healthcare provider right away if any of these occur: Increased eyelid swelling Increased eye pain Increased redness or drainage from the eye Increased blurry vision or increased sensitivity to light Failure of normal vision to return within 24 to 48 hours 1042-1408 The [employer]. [address] [place] [address]. All rights reserved. This information is not intended as a substitute for professional medical care. Always follow your healthcare professional's instructions. Follow Up Care 09/25/2024 07:59:49 With:[facility] Address: [address] [place] [address]- When:2-4 days With:ANNAMARIE MEDINA Address: [address] [place] [phone] When:2-4 days [facility] 09-25-2024 Note Discharge Instructions Thank you for allowing [facility] to assist you with your healthcare needs. The following is important discharge information regarding your hospital visit. Diagnosis from Today's Visit Conjunctivitis of left eye What to Do Next Instructions from Your Care Team No qualifying data available. Post Acute Orders No qualifying data available. You Need to Schedule the Following Appointments Follow Up with [facility] When:Within 2-4 days Where:[address] [place] [phone]- Follow Up with ANNAMARIE MEDINA When:Within 2-4 days Where:[address] [place] [phone] Allergies No Known Medication Allergies Medications Please ask your primary doctor or pharmacist before taking any other medication not listed, including over the counter drugs, herbal medications, vitamins and or supplements as they may interact with your home medications. What How Much When Instructions Last Dose New erythromycin ophthalmic (erythromycin 0.5% ophthalmic ointment) 1 application Both eyes Four (4) times a day Duration: 7 Days 1 colin = 0.5 inch Printed Prescription New ketorolac ophthalmic (ketorolac 0.4% ophthalmic solution) 1 Drops Both eyes Four (4) times a day Duration: 4 Days Printed Prescription Please take this list to your next doctor s visit. Bring all medications you take, including over the counter medications, herbals and other supplements with you to your doctor s visit. Patients and families are reminded to discard old lists and to update any records with all medication providers or retail pharmacies. Education Materials Conjunctivitis, Nonspecific The membrane that covers the white part of your eye (the conjunctiva) is inflamed. Inflammation happens when your body responds to an injury, allergic reaction, infection, or illness. Symptoms of inflammation in the eye may include redness, irritation, itching, swelling, or burning. These symptoms should go away within the next 24 hours. Conjunctivitis may be related to a particle that was in your eye. If so, it may wash out with your tears or irrigation treatment. Being exposed to liquid chemicals or fumes may also cause this reaction. Home care Apply a cold pack over the eye for 20 minutes at a time. This will reduce pain. To make a cold pack, put ice cubes in a plastic bag that seals at the top. Wrap the bag in a clean, thin towel or cloth. Artificial tears may be prescribed to reduce irritation or redness. These should be used 3 to 4 times a day. You may use acetaminophen or ibuprofen to control pain, unless another medicine was prescribed. (Note: If you have chronic liver or kidney disease, or if you have ever had a stomach ulcer or gastrointestinal bleeding, talk with your healthcare provider before using these medicines.) Follow-up care Follow up with your healthcare provider, or as advised. When to seek medical advice Call your healthcare provider right away if any of these occur: Increased eyelid swelling Increased eye pain Increased redness or drainage from the eye Increased blurry vision or increased sensitivity to light Failure of normal vision to return within 24 to 48 hours 4533-5235 [employer]. [address] [place] [address]. All rights reserved. This information is not intended as a substitute for professional medical care. Always follow your healthcare professional's instructions. Additional Information VACCINATE! IT SAVES LIVES! Members of the community who have not yet received the COVID-19 vaccine and would like to receive it can visit one of [facility] vaccine clinics. There are many vaccine clinic locations within the [facility]. For locations and available times, please visit www.gettheshot.coronavirus.[place]. gov/. It is important to note that some COVID mobile vaccine clinics are held outdoors and may be canceled in rainy or stormy conditions. To learn more about pediatric vaccinations (ages 5-11), we invite you to visit the [facility] webpage. https://www.[facility].org/p ages/2002-Uzalh-Oboexccsnjb-Freq pkbuzl-Tjigg-Rcypugzgy.html To learn more about the COVID-19 vaccine, we invite you to visit the CDC website for a list of frequently asked questions. https://www.cdc.gov/coronavirus/ 2019-ncov/vaccines/faq.html [facility] Patient Portal Access Instructions: Stay connected with your healthcare team and access your personal medical information anytime with the [facility] Patient Portal. If you would like a full copy of your medical records please contact the [facility] Medical Records Department Thursday through Thursday between 8a.m. and 4:30p.m. Please follow the directions below to access the portal: 1.Access the email account you provided upon registration to the hospital.2.Look for an invitation email from [facility].3.Open the email and access the invitation link: Accept Invitation to [facility]4.Fill in the required grady to create your account. Sign into www.[employer] with your username and password that you created in the above steps to stay up to date. You can then view a summary of results, a summary of your visits, and the ability to download your summaries to your computer or send the information securely to a physician. Remember that your healthcare information is confidential, so carefully consider who you will allow to register on the [facility] Patient Portal for access to your information. You can also access the [facility] Patient Portal on the [employer]. Simply click on Health Records under Health Data and then click on the [facility] logo. HOW TO SAFELY DISPOSE OF PRESCRIPTION MEDICATIONS Please use one of the following methods to safely dispose of your unused medications. 1.Use a drug disposal kit: the drug disposal pouch allows you to safely discard your old and unused drugs. Ask your nurse to give you one when you are discharged.2.Visit a local take-back location: Many local pharmacies and police departments have programs that collect old and unwanted prescription drugs. Call your local pharmacy or go to http://PageLever.[employer]/9K5Ya9h to find one close to you.3.Make use of household items: Use cat litter or old coffee grounds to dispose medications if other options are not available. Mix your drugs with these household products, seal them in an airtight container and throw it into the garbage. Call [facility]: [phone] to be sure your drugs can be disposed of in this way. Some medicines may require a different approach.4.Never flush your medications down the toilet. IF YOU HAVE BEEN PRESCRIBED AN OPIOIDS FOR PAIN If you have been prescribed an opioid (such as hydrocodone, oxycodone or morphine), it is critical to understand the possible side effects and risks of opioid pain medications. Even when taken as directed, opioids can have several side effects including: Tolerance, meaning you might need to take more of a medication for the same pain relief. Nausea, vomiting and/or constipation. Sleepiness, dizziness, dry mouth, confusion, depression or itching. Physical dependence, meaning you have withdrawal symptoms when a medication is stopped ? this can develop within a few days. KNOW YOUR RESPONSIBILITIES It is important to know exactly how much and how often to take the opioid pain medications you are prescribed. Never take opioids in higher amounts or more often than prescribed. Do not combine opioids with alcohol or other drugs that cause drowsiness, such as benzodiazepines, also known as benzos, including diazepam and alprazolam, muscle relaxants or sleep aids. Never sell or share prescription opioids. This is illegal. Store opioids in a secure place and out of reach of others (including children, family, friends and visitors). The last page(s) of this document has been signed and retained as a CHART COPY Signatures Patient Education Materials Conjunctivitis, Non-Specific Medication Leaflets My discharge plan and instructions have been reviewed and explained to me and I,MARY LUIS understand my current condition and have read and understand these discharge instructions. I have received a written copy of the plan/instructions. If I have questions, I am aware that I should contact my doctor. Patient/Social Work Faculty Member Signature: Date/Time: Relationship to Patient: Witness Name/Signature: Date/Time: [facility] 04-03-2023 Discharge summary Note Date/Time April 03, 2023 10:50am [facility] Medical Records Department [address] [place] [address] Instructions for Home/Discharge Instructions 04/03/23 1050 MR#: [id number] Acct: [id number] Name: MARY LUIS Rep #:[id number] : 1955 67 From: Turner Gupta MD PCP: Dr. Annamarie Medina MD Status:[facility] Discharge Instructions Diet Discharge Diet: No restrictions Activity Discharge Activity: Return to Normal Activity and May Not Drive (while taking narcotic pain medications.) Dressing / Incision Call your doctor if you observe: Fever of 101 or Higher Follow Up Care Please Follow Up With: Turner Gupta MD When: Call [phone] for an appointment Test Results: Test results from this visit will be discussed in further detail at your follow-up appointment, if applicable. Discharge Plan Admission Primary Reason for Your Visit: [facility] Attending Provider: Turner Gupta Primary Care Provider: Annamarie Medina Discharge Orders/Prescriptions Prescriptions: New ciprofloxacin HCl [Cipro] 500 mg tablet 500 mg PO BID Qty: 14 0RF Continued lisinopril 5 mg tablet 5 mg PO DAILY Patient Comments: TAKE 1 TABLET BY MOUTH ONCE DAILY glipizide 2.5 mg tablet extended release 24hr 2.5 mg PO DAILY Patient Comments: TAKE 1 TABLET BY MOUTH ONCE DAILY WITH THE FIRST MEAL OF THE DAY atorvastatin 20 mg tablet 20 mg PO QHS Patient Comments: TAKE 1 TABLET BY MOUTH ONCE DAILY tamsulosin [Flomax] 0.4 mg capsule 0.4 mg PO DAILY Qty: 30 1RF Held aspirin 81 mg tablet,delayed release (DR/EC) 81 mg PO DAILY Hold Instructions: Resume on 04/17/23. Referrals / Follow Up: Annamarie Medina MD [Primary Care Provider] - Turner Gupta MD [Med Staff - Active Staff] - Disposition Disposition (needs filled in before D/C Order can be placed): Home, Self Care 04/03/23 1050<Electronically signed by Turner Gupta MD>Turner Gupta MD CC: Dr. Annamarie Medina MD ~ Signed [facility] Work Phone: 1(449) 842-351902-02-2024 History and physical note Author Turner Gupta [facility] April 03, 2023 10:50am Note Date/Time April 03, 2023 1 0:50am [facility] Medical Records Department [address] [place] [id number] History & Physical Exam 04/03/23 1050 MR#: [id number] Acct: [id number] Name: MARY LUIS Rep #:[id number] : 1955 67 From: Turner Gupta MD PCP: Dr. Annamarie Medina MD Status:[facility] Location: [address] - General General Date of Service: 04/03/23 Chief Complaint: Retention of urine HPI Narrative MARY LUIS, is a 67 M who presents for transurethral resection of prostate for retention of [facility] History Diabetes Former smoker High cholesterol Hypertension Left inguinal hernia Urinary retention Wears glasses Wears partial dentures Home Medications aspirin 81 mg tablet,delayed release 81 mg PO DAILY 01/15/23 [History Last Taken 03/20/23] atorvastatin 20 mg tablet 20 mg PO QHS 01/15/23 [History Last Taken 04/02/23] glipizide 2.5 mg tablet, extended release 24 hr 2.5 mg PO DAILY 01/15/23 [History Last Taken 04/02/23] lisinopril 5 mg tablet 5 mg PO DAILY 01/15/23 [History Last Taken 04/03/23] tamsulosin 0.4 mg capsule (Flomax) 0.4 mg PO DAILY #30 caps 02/02/23 [Rx Last Taken 04/02/23] ciprofloxacin HCl 500 mg tablet (Cipro) 500 mg PO BID #14 tabs 04/03/23 [Rx Last Taken Unknown] Allergy/AdvReac Type Severity Reaction Status Date / Time No Known Allergies Allergy Verified 04/03/23 08:44 Family History (Updated 01/15/23 @ 15:05 by Cierra Yee) Father Cancer prostate Surgical History S/P inguinal hernia repair S/P laparoscopic cholecystectomy Social History (Updated 01/15/23 @ 15:05 by Cierra Yee) Smoking Status: Former smoker alcohol intake: never Vital Signs Vital Signs Vital Signs: 04/03/23 08:45 04/03/23 08:45 Temperature 97.6 F L Temperature Source Temporal Pulse Rate 59 L Respiratory Rate 16 Respiratory Pattern Normal Blood Pressure 131/76 H Blood Pressure Mean 94 Blood Pressure Source Monitor Blood Pressure Position Semi-Fowlers Blood Pressure Location Right Arm Pulse Ox 99 Oxygen Delivery Method Room Air Weight Weight: 76.6 kg Body Mass Index (BMI) 24.2 Results Lab / Micro Data Labs: Laboratory Results - last 24 hr 04/03/23 08:39: POC Glucose 118 H 04/03/23 1050 <Electronically signed by Turner Gupta MD> Cosigner Signature (if applicable): CC: Dr. Annamarie Medina MD; Dr. Turner Gupta MD~ Signed [facility] Work Phone: 1(402) 732-968302-02-2024 Procedure [facility] 02-02-2023 Discharge summary Author James King [facility] February 02, 2023 10:11am Note Date/Time February 02, 2023 7 :10am [facility] Medical Records Department [address] [place] [address] Instructions for Home/Discharge Instructions 02/02/23 0710 MR#: [id number] Acct: [id number] Name: MARY LUIS Rep #:[id number] : 1955 67 From: James King MD PCP: Dr. Annamarie Medina MD Status:[facility] Discharge Instructions Procedure General Surgery Diet Discharge Diet: Light diet - advance as tolerated (if you have questions about your diet instructions, please talk to you doctor.) Activity Discharge Activity: May Not Drive (for 3-5 days or while taking narcotic pain medicine.) May shower in (days): 1 Lifting Restrictions: 10 pounds Dressing / Incision Call your doctor if your incision/area has: Continuous Slow Oozing, Sudden Increased Bleeding, Increased Pain/ Swelling, Increased Redness and Foul Smelling Discharge Call your doctor if you observe: Fever of 101 or Higher Suture Line Care: Avoid Pulling/Pushing and Avoid Pinching/Bending Additional Dressing/Incision Instructions:: Change or remove dressing in 4 days. Leave steri-strips in place for 1 week. Follow Up Care Please Follow Up With: James King MD When: Call [phone] to make an appointment to be seen in about 10 days. Please leave your Rosado catheter in place. I anticipate you are being contactedby Dr. Gupta's office for an appointment early next week. This will then facilitate your catheter removal. Test Results: Test results from this visit will be discussed in further detail at your follow- up appointment, if applicable. Discharge Plan Admission Primary Reason for Your Visit: Left inguinal hernia Attending Provider: James King Primary Care Provider: Annamarie Medina Discharge Orders/Prescriptions Prescriptions: New hydrocodone-acetaminophen 5-325 mg tablet 1 tab PO Q6H PRN (Reason: pain) 2 Days Qty: 5 0RF tamsulosin [Flomax] 0.4 mg capsule 0.4 mg PO DAILY Qty: 30 1RF Continued lisinopril 5 mg tablet 5 mg PO DAILY Patient Comments: TAKE 1 TABLET BY MOUTH ONCE DAILY glipizide 2.5 mg tablet extended release 24hr 2.5 mg PO DAILY Patient Comments: TAKE 1 TABLET BY MOUTH ONCE DAILY WITH THE FIRST MEAL OF THE DAY atorvastatin 20 mg tablet 20 mg PO QHS Patient Comments: TAKE 1 TABLET BY MOUTH ONCE DAILY aspirin 81 mg tablet,delayed release (DR/EC) 81 mg PO DAILY Referrals / Follow Up: Nam Olivia MD [Non-Staff] - Disposition Disposition (needs filled in before D/C Order can be placed): Home, Self Care 02/02/23 1011<Electronically signed by James King MD>James King MD CC: Dr. Annamarie Medina MD ~ Signed [facility] Work Phone: 1(821) 290-197112-04-2023 Procedure [facility] 02-02-2023 History and physical note Author James King [facility] February 02, 2023 7:09am Note Date/Time February 02, 2023 7 :10am [facility] Medical Records Department [address] [place] [address] History & Physical Exam 02/02/23 0709 MR#: [id number] Acct: [id number] Name: MARY LUIS Rep #:[id number] : 1955 67 From: James King MD PCP: Dr. Annamarie Medina MD Status:[facility] Location: [place] [address] History and Physical Date of Admission: 02/02/23 Visit Reasons: L INGUINAL HERNIA Chief Complaint: left inguinal hernia Band Splicer Required: No Is patient in pain?: Yes (left groin) Allergies No Known Allergies Allergy (Unverified 01/15/23 15:06) Medications aspirin 81 mg tablet,delayed release 81 mg PO DAILY 01/15/23 [History Confirmed 01/15/23] atorvastatin 20 mg tablet 20 mg PO 01/15/23 [History Confirmed 01/15/23] glipizide 2.5 mg tablet, extended release 24 hr 2.5 mg PO 01/15/23 [History Confirmed 01/15/23] lisinopril 5 mg tablet 5 mg PO 01/15/23 [History Confirmed 01/15/23] PFSH Medical History (Updated 01/15/23 @ 15:05 by Cierra Yee) Diabetes High cholesterol Hypertension Left inguinal hernia Surgical History (Updated 01/15/23 @ 15:05 by Cierra Yee) S/P laparoscopic cholecystectomy Family History (Updated 01/15/23 @ 15:05 by Cierra Yee) Father Cancer prostate Social History (Updated 01/15/23 @ 15:05 by Cierra Yee) Smoking Status: Former smoker alcohol intake: never HPI HPI HPI: 67-year-old gentleman is referred by Dr. Annamarie Medina for surgical consultationregarding a left inguinal hernia and a written copy of my surgical consult recommendations will return to her. Very pleasant Curly gentleman he works at [employer] Couple months ago he developed bulging in his left groin. He is not claiming that it was work-related. He does do significant mount of wood shopping. He claims he enjoys good health other than type 2 diabetes. He does remain physically active. 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 He does not have to do any heavy lifting or straining. ROS General General: No weight change, appetite, fatigue, colon cancer, breast cancer or weakness HEENT HEENT: No difficulty swallowing, eye injury, eye surgery, swollen glands or hoarseness Endo Endocrine: Yes diabetes mellitus; No thyroid disease, thyroid cancer, Hair loss, heat intolerance or cold intolerance Skin Skin: No rash or changing moles Breast Breast: No left breast lump, right breast lump, nipple discharge, breast pain, abnormal mammogram, abnormal US or breast enlargement Musc Musculoskeletal: No back problems, arthritis, rheumatoid arthritis, gout or joint pain Cardio Cardiovascular: No murmur, pacemaker, heart disease, atrial fibrillation, high blood pressure, heart attack, heart stent, palpitations, shortness of breat withexertion or chest pain Psych Psychiatric: No depression, anxiety or hearing voices Resp Respiratory: No shortness of breath, No sleep apnea, No cough, No COPD, No asthma, No emphysema and No wheezing Gastro Gastrointestinal: No abdominal pain, No nausea or vomiting, No diarrhea, No constipation, No blood in stool, No acid reflux, No hemorrhoids, No ulcers, No gallbladder problem and No black,tarry stools [place] Hematologic: No blood thinners, No blood disorders, No bleeding, No anemia and No blood clots Neuro Neurologic: No system reviewed and no additional complaints, except as documented, No as per HPI, No abnormal gait, No abnormal hearing, No abnormal movements, No abnormal speech, No behavioral changes, No burning sensations, No confusion, No convulsions, No disequilibrium, No dizziness, No localized weakness, No frequent falls, No headache(s), No lack of coordination, No loss ofvision, No memory loss, No numbness, No other visual disturbances, No radicular pain, No restless legs, No sensory deficit, No syncope, No tingling, No tremor(s), No weakness and No other Exam Const General: cooperative, healthy appearing, comfortable and no acute distress Nutritional Appearance: average body habitus Orientation: alert, awake and oriented x3 [facility] Head: normal to inspection Eyes General: appearance normal, both eyes and all related structures Neck Neck: normal visual inspection Chest Chest palpation & inspection: normal inspection of the chest Resp Effort & Inspection: normal respiratory effort Auscultation: clear to auscultation bilaterally Cardio Rate: regular rate Rhythm: regular rhythm GI Inspection: normal to inspection Percussion: normal to percussion Other: Right groin solid intact Sizable left inguinal hernia which is reducible Testicles are descended bilaterally Musc Cervical Spine: normal cervical lordosis Skin General: no rashes or lesions noted Neuro General: patient alert, patient awake and patient oriented x3 Psych Appearance: grossly normal Assessment and Plan Assessment and Plan (1) Left inguinal hernia: Status: Acute Plan: I proposed to the patient a laparoscopic left inguinal hernia repair with mesh and with his present I discussed technique benefit risk complication alternatives. The absolute earliest I would think he could return to work wouldbe 2 weeks. We will allow further time on his FMLA. He is aware that he will need to allow a recovery period. He is aware that there are no guarantees of success. He has had an opportunity to ask and have questions answered. I appreciate the opportunity of assisting with his surgical care. We will schedule and proceed at his discretion. I have examined the patient and the H&P has been reviewed. There are no clinicalchanges since date of exam. James King M.D., F.A.C.S. 02/02/23 0709 <Electronically signed by James King MD> Cosigner Signature (if applicable): CC: Dr. Annamarie Medina MD; Dr. James King MD~ Signed [facility] Work Phone: Evaluation + Plan note No data available for this section [facility] Evaluation noteNo assessment information available [facility] Work Phone: Evaluation note* Diagnosis Onset Date Resolution Status Left inguinal hernia acute [facility] Work Phone: Evaluation note* Diagnosis Onset Date Resolution Status Left inguinal hernia acute S/P inguinal hernia repair a [facility] Work Phone: Evaluation note* Diagnosis Onset Date Resolution Status S/P inguinal hernia repair a [facility] Work Phone: Hospital Discharge instructions Additional Instructions Implant Used?: [facility] Work Phone: Progress note Author Turner Gupta [facility] April 04, 2023 9:45am Note Date/Time April 04, 2023 9 :46am [facility] Medical Records Department [address] [place] [id number] Progress Note - Urology 04/04/23944 MR#: [id number] Acct: [id number] Name: MARY LUIS Rep #:[id number] : 1955 67 From: Turner Gupta MD PCP: Dr. Annamarie Medina MD Status:[facility] Location: [place] [address] Subjective Subjective Status post TURP CBI is off urine is crystal clear we can remove his catheter and go home I showed him how to use catheters to self cath at home if he is not able to urinate he can be discharged after the catheter is removed. It might take several hours 6 to 8 hours before he starts urinating because he does have a weak lazy distended bladder. Objective Data Objective Data Vital Signs: Vital Signs Temp Pulse Resp BP Pulse Ox O2 Del Method 98.5 F 72 18 126/78 H 98 Room Air 04/04/23 04:53 04/04/23 04:53 04/04/23 04:53 04/04/23 04:53 04/04/23 04:53 04/04/23 07:50 Oxygen Delivery Method Room Air Weight: 76.6 kg Body Mass Index (BMI) 24.2 Intake & Output: Intake and Output for Last 24 Hours 04/02/23 04/03/23 04/04/23 23:59 23:59 23:59 Intake Total 1104.92 / 1104.92 1187.5 / 1187.5 Balance 1104.92 / 1104.92 1187.5 / 1187.5 Lab / Micro Data Labs: Laboratory Results - last 24 hr 04/03/23 12:21: POC Glucose 92 04/04/23 0945 <Electronically signed by Turner Gupta MD> Cosigner Signature (if applicable): CC: ~ Signed [facility] Work Phone: Reason for referral (narrative)No reason for [facility] Work Phone: Chief Complaint and Reason for Visit Chief Complaint LIPID PANEL, PSA, CM P, CBC W/ AUTODIFF Chief Complaint L INGUINAL HERNIA Hernia, Lap Left Inguinal w/ Mesh Hernia, Lap Left Inguinal w/ Mesh Reason for Visit Left inguinal hernia Chief Complaint L INGUINAL HERNIA PREOP Hernia, Lap Left Inguinal w/ Mesh Hernia, Lap Left Inguinal w/ Mesh f/u inguinal hernia repair Transurethral Resection of Prostate with Olympus Reason for Visit Left inguinal hernia S/P inguinal hernia repair Chief Complaint L INGUINAL HERNIA PREOP Hernia, Lap Left Inguinal w/ Mesh Hernia, Lap Left Inguinal w/ Mesh f/u inguinal hernia repair Transurethral Resection of Prostate with Olympus PSA Reason for Visit Left inguinal hernia S/P inguinal hernia repair Chief Complaint L INGUINAL HERNIA PREOP Hernia, Lap Left Inguinal w/ Mesh Hernia, Lap Left Inguinal w/ Mesh f/u inguinal hernia repair 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 Reason for Visit Left inguinal hernia S/P inguinal hernia repair Chief Complaint L INGUINAL HERNIA PREOP Hernia, Lap Left Inguinal w/ Mesh Hernia, Lap Left Inguinal w/ Mesh f/u inguinal hernia repair 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 Reason for Visit Left inguinal hernia S/P inguinal hernia repair Chief Complaint f/u inguinal hernia repair 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 Reason for Visit S/P inguinal hernia repair Chief Complaint Admit Date PSA February 13, 2024 11:08am Chief Complaint Admit Date PSA August 10, 2024 2:35 pm Advance Directives No Advanced Directives Records Found Advance Directive Response Recorded Date/ Time Living Will No January 23, 2 023 1:47pm Power of Shuttle Fitting Supervisor No January 23, 2023 1:47pm Advance Directive Response Recorded Date/ Time Name of Medical Power of Shuttle Fitting Supervisor unsure April 03, 2023 1:01pm Living Will Yes April 03 1:01pm Power of Shuttle Fitting Supervisor Yes April 03, 2023 1:01pm Advance Directive Response Recorded Date/ Time Name of Medical Power of Shuttle Fitting Supervisor unsure April 03, 2023 2:01pm Living Will Yes April 03 2:01pm Power of Shuttle Fitting Supervisor Yes April 03, 2023 2:01pm Summary Purpose Family History No Family History Records Found Additional Source Comments Care Teams (unrecognized sec tion and content) Team Status: Active Member Role Status Dates Dr. Nam Olivia MD Family Provider Active Dr. Nam Olivia MD Primary Care Provider Active Team Status: Inactive Member Role Status Dates Dr. Nam Olivia MD Primary Care Provider Active Fatuma Starr NP-C Attending Provider, Referring Prov ider Active Team Status: Inactive Member Role Status Dates Dr. Nam Olivia MD Primary Care Provider Active Dr. Annamarie Medina MD Attending Provider Active Team Status: Active Member Role Status Dates Dr. Nam Olivia MD Family Provider Active Dr. Annamarie Medina MD Primary Care Provider Active Team Status: Inactive Member Role Status Dates Dr. Nam Olivia MD Primary Care Provider, Referring Provider Active Dr. James King MD Attending Provider Active Team Status: Active Member Role Status Dates Dr. James King MD Attending Provid er, Referring Provider, Other Provider Active Dr. Annamarie Medina MD Primary Care Provider Active Team Status: Inactive Member Role Status Dates Dr. James King MD Attending Provider, Referring Provider Active Dr. Annamarie Medina MD Primary Care Provider Active Team Status: Inactive Member Role Status Dates Dr. Annamarie Medina MD Primary Care Provider, Referrin g Provider Active Charissa SWAN PA-C Attending Provider Active Team Status: Active Member Role Status Dates Dr. Annamarie Medina MD Primary Care Provider Active Dr. Nelson Denny MD Attending Provider Active Dr. James King MD Referring Provider Active Team Status: Inactive Member Role Status Dates Dr. Annamarie Medina MD Primary Care Provider Active Dr. Turner Gupta MD Attending Provider, Referr ing Provider Active Team Status: Inactive Member Role Status Dates Dr. Annamarie Medina MD Primary Care Provider Active Uma Crook Attending Provider, Referring Provide r Active Team Status: Active Member Role Status Dates Dr. Annamarie Medina MD Primary Care Provider Active Team Status: Inactive Member Role Status Dates Dr. Annamarie Medina MD Primary Care Provider Active Start: February 13, 2024 End: February 13, 2024 Uma Crook Attending Provider Active Start : February 13, 2024 End: February 13, 2024 Uma Crook Referring Provider Active Start : February 13, 2024 End: February 13, 2024 Team Status: Inactive Member Role Status Dates Dr. Annamarie Medina MD Primary Care Provider Active Start: May 17, 2024 End: May 17, 2024 Dr. Annamarie Medina MD Attending Provider Active Start: May 17, 2024 End: May 17, 2024 Dr. Annamarie Medina MD Referring Provider Active Start: May 17, 2024 End: May 17, 2024 Team Status: Inactive Member Role Status Dates Dr. Annamarie Medina MD Primary Care Provider Active Start: August 10, 2024 End: August 10, 2024 Uma Crook Attending Provider Active Start : August 10, 2024 End: August 10, 2024 Uma Crook Referring Provider Active Start : August 10, 2024 End: August 10, 2024 Goals (unrecognized section and content) Goals may be documented in a n alternate sectionGoals may be documented in an alternate sectionGoals may be documented in an alternate sectionGoals may be documented in an alternate section No data available for this section (unrecognized sect ion and content) No Status Records FoundNo Status Records Found INFORMATION SOURCE (unrecogn ized section and content) DATE CREATED AUTHOR 08/19/2024 [facility] DATE CREATED AUTHOR AUTHOR'S JEMMA SANCHEZ 10/03/2024 [facility] FOR RECORDS PERTAINING TO PATIENTS WHO ARE OR HAVE BEEN ENROLLED IN A CHEMICAL DEPENDENCY/SUBSTANCEABUSE PROGRAM, SOME INFORMATION MAY BE OMITTED. This clinical summary was aggregated from multiple sources. Caution should be exercised in using it in the provision of clinical care. This summary normalizes information from multiple sources, and as a consequence, information in this document may materially change the coding, format and clinical context of patient data. In addition, data may be omitted in some cases. CLINICAL DECISIONS SHOULD BE BASED ON THE PRIMARY CLINICAL RECORDS. [facility]. provides no warranty or guarantee of the accuracy or completeness of information in this document.
[2024-11-05 10:57] LABS: Hematocrit 35.0 % (40-54); Hemoglobin 12.0 g/dL (13.0-16.5); Immature Granulocytes Count 0.030 X10^3/uL (0.0-0.0); Mean Corp Hgb Conc 34.3 g/dL (32-36); Mean Corpuscular Volume 94.6 fL (80-94); Mean Platelet Vol. 9.7 fl (6.2-12.0); NRBC Flagged by Analyzer 0 % (0-5); Platelet Count 230 K/mm3 (150-450); RBC Distribution Width CV 14.4 % (11.6-14.6); RBC Distribution Width SD 50.0 fl (35.1-43.9); Red Blood Count 3.70 M/mm3 (4.6-6.2); White Blood Count 6.5 K/mm3 (4.4-11.0)
[2024-11-05 11:25] LABS: Creatinine, Urine (random) 67.10 mg/dL (39.00-259.00); Microalbumin,Random Urine 55.5 mg/L (<20 mg/L)
[2024-11-05 11:28] LABS: AST(SGOT) 23 U/L (<=37); Alanine Aminotransfer ALT/SGPT 35 U/L (<=46); Albumin, Serum 4.0 g/dL (3.4-4.8); Alkaline Phosphatase 77 U/L (40-129); Anion Gap 11 (5-15); BUN 17 mg/dL (4-19); BUN/Creat Ratio 18.7 RATIO (10-20); Calcium,Total 9.7 mg/dL (7.6-11.0); Carbon Dioxide 22.8 mmol/L (21.0-32.0); Chloride 106 mmol/L (98-108); Cholesterol 123 mg/dL (<=200); Globulin 3.3 g/dL (2.2-4.2); Glucose 133 mg/dL (70-99); Low Density Lipoprotein Calc. 52 mg/dL; Potassium 4.1 mmol/L (3.3-5.1); Triglycerides 88 mg/dL; Very Low Density Lipoprotein 18 mg/dL (5-40); cholesterol:hdl ratio screen 2.29
== END | disposition home or self-care (01) ==
LOC: LAB 09:30
PROVIDERS: PCP Family Medicine; Referring Provider Family Medicine; Visit Provider Family Medicine
DX: E11.9 Type 2 diabetes mellitus without complications (principal); I10 Essential (primary) hypertension
CPT/HCPCS: 36415; 80053; 80061; 82043; 82570; 85025

== ENCOUNTER → 2025-01-24 | Outpatient (CLI) | payer BC, SELFPAY ==
[2025-01-24 18:14] LABS: FOLATES,SERUM (FOLIC ACID) 12.60 ng/mL (4.60-34.80); Ferritin 269 ng/mL (37-417); Iron 61 ug/dL (65-175); Iron Binding Capacity,Total 240 ug/dL (250-450); Iron Binding Capacity,Unsat 179 ug/dL (228-428); Vitamin B12 736 pg/mL (180-914)
[2025-01-24 18:17] LABS: Hematocrit 37.6 % (40-54); Hemoglobin 12.0 g/dL (13.0-16.5); Immature Granulocytes Count 0.020 X10^3/uL (0.0-0.0); Mean Corp Hgb Conc 31.9 g/dL (32-36); Mean Corpuscular Volume 94.5 fL (80-94); Mean Platelet Vol. 9.8 fl (6.2-12.0); NRBC Flagged by Analyzer 0 % (0-5); Platelet Count 213 K/mm3 (150-450); RBC Distribution Width CV 11.4 % (11.6-14.6); RBC Distribution Width SD 39.1 fl (35.1-43.9); Red Blood Count 3.98 M/mm3 (4.6-6.2); White Blood Count 6.1 K/mm3 (4.4-11.0)
[2025-01-24 18:37] LABS: PSA,Total- Diagnostic 12.30 ng/mL (0.00-4.00)
--- OUTSIDE RECORDS SUMMARY | 2025-01-24 19:09 | XMS RPT_ITS | CCD ---
Author Organization [facility] Providers Care Rubble Placer Name Role Phone Dr. Nam Olivia Primary Care Provider Unavaila Dr. Nam Mead Referring Provider Unavailable Dr. [...] Primary Care Provider Uma Crook Attending Provider Uma Crook Referring Provider Dr. Annamarie Medina MD Attending Provider Dr. Annamarie Medina MD Referring Provider Dr. Annamarie Medina MD Primary Care Provider Uma Crook Attending Provider Ambreen Uma Referring Provider ANNAMARIE MEDINA Primary Care Physician ANNAMARIE MEDINA Primary Care Unavailable DR SON MALDONADO DO Attending Unavailable Carol LOVE, Dr. De Luna Primary Care Provider Carol LOVE, Dr. De Luna Attending Provider Dr. Annamarie Medina MD Referring Provider Annamarie Medina Primary Care Unavailable Annamarie Medina Referring Unavailable Annamarie Medina Attending Unavailable Annamarie Medina Primary Care Unavailable Marlborough, Uma Referring Unavailable [place], Uma Attending Unavailable Annamarie Medina Primary Care Unavailable Annamarie Medina Referring Unavailable Annamarie Medina Attending Unavailable [place], Uma Referring Unavailable [place], Uma Attending Unavailable Annamarie Medina Primary Care Unavailable Medications Current Medications Medication Drug Class(es) Dates Sig (Normalized) Sig (Original) aspirin 81 mg delayed release oral tablet (9 sources) Platelet Aggregation Inhibitor, Nonsteroidal Anti-inflammatory Drug Start: 01-15-2023 take 1 tablet by mouth once daily Aspirin 81 mg tablet,delayed release (DR/EC) Active 81 mg PO DAILY January 15, 2023 1:00am atorvastatin 20 mg oral tablet (9 sources) HMG-CoA Reductase Inhibitor Start: 01-15-2023 take 1 tablet by mouth at bedtime Atorvastatin 20 mg tablet Active 20 mg PO AT BEDTIME January 15, 2023 1:00am ciprofloxacin 500 mg oral tablet (19 sources) Quinolone Antimicrobial Start: 07-29-2023 take 1 tablet by mouth twice daily Ciprofloxacin Hcl (Cipro) 500 mg tablet Active 500 mg PO TWICE A DAY 10 July 29, 2023 12:00am Start: 04-03-2023 End: 07-15-2023 take 1 tablet by mouth twice daily Ciprofloxacin Hcl (Cipro) 500 mg tablet Discontinued 500 mg PO TWICE A DAY 14 April 03, 2023 1:00am July 15, 2023 [...] mg 24 hr extended release oral tablet (9 sources) Sulfonylurea Start: 01-15-2023 take 1 tablet [...] number: 1 lisinopril 5 mg oral tablet (9 sources) Angiotensin Converting Enzyme Inhibitor Start: 01-15-2023 take 1 tablet by mouth once daily Lisinopril 5 mg tablet Active 5 mg PO DAILY January 15, 2023 1:00am Completed/Discontinued Medications Medication Drug Class(es) Dates Sig (Normalized) Sig (Original) acetaminophen 325 mg / HYDROcodone bitartrate 5 mg oral tablet (9 sources) Opioid Agonist Start: 02-02-2023 End: 02-11-2023 Hydrocodone-Acetami nophen 5-325 mg tablet Discontinued 1 {tbl} PO EVERY 6 HOURS as needed for pain 5 2 0 February 02, 2023 February 11, 2023 1:36pm Left inguinal hernia Start: 02-02-2023 End: 02-11-2023 take 1 tablet by mouth every six hours Hydrocodone-Acetaminophen Discontinued 1 TABLET PO EVERY 6 HOURS 5 2 February 02, 2023 February 11, 2023 1:36pm tamsulosin hydrochloride 0.4 mg oral capsule (9 sources) alpha-Adrenergic Taniya Start: 02-02-2023 End: 07-15-2023 take 1 capsule by mouth once daily Tamsulosin (Flomax) 0.4 mg capsule Discontinued 0.4 mg PO DAILY 31 03February 02, 2023 1:00am July 15, 2023 1:11pm Problems Active Problems Problem Classification Problem Date Documented Date Episodic/Chronic Abdominal hernia (14 sources) Left inguinal hernia ; Translations: [Unilateral inguinal hernia, without obstruction or gangrene, not specified as recurrent] 01-15-2023 Episodic Cancer of prostate (1 source) Malignant neoplasm of prostate; Translations: [Malignant neoplasm of prostate] Onset: 08-16-2024 Chronic Diabetes mellitus without complication (10 sources) Diabetes mellitus; Translations: [Type 2 diabetes mellitus without complications] Onset: 11-15-2024 01-15-2023 Chronic Disorders of lipid metabolism (9 sources) Hypercholesterolemia; Translations: [Pure hypercholesterolemia, unspecified] 01-15-2023 Chronic Essential hypertension (9 sources) Hypertensive disorder; Translations: [Essential (primary) hypertension] 01-15-2023 Chronic Genitourinary symptoms and ill-defined conditions (9 sources) Retention of urine; Translations: [Retention of urine, unspecified] 02-02-2023 Episodic Inflammation; infection of eye (except that caused by tuberculosis or sexually transmitteddisease) (2 sources) Conjunctivitis; Translations: [Unspecified conjunctivitis] Onset: 09-25-2024 Episodic Residual codes; unclassified (5 sources) Other specified postprocedural states; Translations: [Other postprocedural status] 02-11-2023 Episodic Past or Other Problems Problem Classification Problem Date Documented Da te Episodic/Chronic Other non-traumatic joint disorders (1 source) Pain in unspecified joint; Translations: [Pain in unspecified joint] Onset: 05-25-2024 Episodic Results Test Name Value Interpretation Reference Range Facility Absolute lymphocyte countOrd ered By: Annamarie Medina on 11-05-2024 Lymphocytes Auto (Unsp spec) [#/Vol] 1.61 10*3/uL 0.83-4.51 [facility] Absolute neutrophil countOrd ered By: Annamarie Medina on 11-05-2024 Neutrophils (Bld) [#/Vol] 4.4 10*3/uL 2.0-7.7 [facility] Anion gap in Serum or Plasma Ordered By: Annamarie Medina on 11-05-2024 Anion gap [Moles/Vol] 11 mmol/L 5-15 [facility] Automated lymphocyte count a s percentage of total leukocytesOrdered By: Annamarie Medina on 11-05-2024 Lymphocytes/100 WBC Auto (Unsp spec) 24.7 % 19-41 [facility] BUN/creatinine ratioOrdered By: Annamarie Medina on 11-05-2024 Urea nitrogen/Creatinine [Mass ratio] 18.7 mg/mg 10-20 [facility] Basophil percentageOrdered B y: Annamarie Medina on 11-05-2024 Basophils/100 WBC (Bld) 0.5 % 0-1 [facility] Bilirubin, totalOrdered By: Annamarie Medina on 11-05-2024 Bilirubin [Mass/Vol] 0.36 mg/dL 0.00-1.30 [facility] CBC W/Diff, Automatedon Absolute Lymph 1.61 X10 3/uL Normal 0.83-4.51 [facility] Comment on above: Performed By: #### L 100.0100, L502.0250, L500.4050, L500.4100 #### [facility] [address] [place], [address] Absolute Neut 4.4 X10 3/uL Normal 2.0-7.7 [facility] Comment on above: Performed By: #### L 100.0100, L502.0250, L500.4050, L500.4100 #### [facility] [address] [place], [address] Basophils/100 WBC (Bld) 0.5 % Normal 0-1 [facility] Comment on above: Performed By: #### L 100.0100, L502.0250, L500.4050, L500.4100 #### [facility] [address] [place], [address] Eosinophils/100 WBC (Bld) 0.9 % Normal 0-5 [facility] Comment on above: Performed By: #### L 100.0100, L502.0250, L500.4050, L500.4100 #### [facility] [address] [place], [address] Erythrocyte distribution width (RBC) [Ratio] 14.4 % Normal 11.6-14.6 [facility] Comment on above: Performed By: #### L 100.0100, L502.0250, L500.4050, L500.4100 #### [facility] [address] [place], [address] Hematocrit (Bld) [Volume fraction] 35.0 % Low 40-54 [facility] Comment on above: Performed By: #### L 100.0100, L502.0250, L500.4050, L500.4100 #### [facility] [address] [place], [address] Hemoglobin (Bld) [Mass/Vol] 12.0 g/dL Low 13.0-16.5 [facility] Comment on above: Performed By: #### L 100.0100, L502.0250, L500.4050, L500.4100 #### [facility] [address] [place], [address] IG% 0.500 Normal 0.0-0.9 [facility] Comment on above: Result Comment: IG% - Immature Granulocytes (promyelocytes, myelocytes and metamyelocytes) > 1% indicates that a LEFT SHIFT is Present. Performed By: #### L 100.0100, L502.0250, L500.4050, L500.4100 #### [facility] [address] [place], [address] Lymphocytes/100 WBC (Bld) 24.7 % Normal 19-41 [facility] Comment on above: Performed By: #### L 100.0100, L502.0250, L500.4050, L500.4100 #### [facility] [address] [place], [address] MCH (RBC) [Entitic mass] 32.4 pg High 27.0-32.0 [facility] Comment on above: Performed By: #### L 100.0100, L502.0250, L500.4050, L500.4100 #### [facility] [address] [place], [address] MCHC (RBC) [Mass/Vol] 34.3 g/dL Normal 32-36 [facility] Comment on above: Performed By: #### L 100.0100, L502.0250, L500.4050, L500.4100 #### [facility] [address] [place], [address] MCV (RBC) [Entitic vol] 94.6 fL High 80-94 [facility] Comment on above: Performed By: #### L 100.0100, L502.0250, L500.4050, L500.4100 #### [facility] [address] [place], [address] Monocytes/100 WBC (Bld) 5.8 % Normal 0-10 [facility] Comment on above: Performed By: #### L 100.0100, L502.0250, L500.4050, L500.4100 #### [facility] [address] [place], [address] Neutrophils/100 WBC (Bld) 67.6 % Normal 47-70 [facility] Comment on above: Performed By: #### L 100.0100, L502.0250, L500.4050, L500.4100 #### [facility] [address] [place], [address] Nucleated RBC (Bld) [#/Vol] 0 10*3/uL Normal 0-5 [facility] Comment on above: Performed By: #### L 100.0100, L502.0250, L500.4050, L500.4100 #### [facility] [address] [place], [address] Platelet mean volume (Bld) [Entitic vol] 9.7 fL Normal 6.2-12.0 [facility] Comment on above: Performed By: #### L 100.0100, L502.0250, L500.4050, L500.4100 #### [facility] [address] [place], [address] Platelets (Bld) [#/Vol] 230 10*3/uL Normal 150-450 [facility] Comment on above: Performed By: #### L 100.0100, L502.0250, L500.4050, L500.4100 #### [facility] [address] [place], [address] RBC (Bld) [#/Vol] 3.70 10*6/uL Low 4.6-6.2 [facility] Comment on above: Performed By: #### L 100.0100, L502.0250, L500.4050, L500.4100 #### [facility] [address] [place], [address] RDW SD 50.0 fl High 35.1-43.9 [facility] Comment on above: Performed By: #### L 100.0100, L502.0250, L500.4050, L500.4100 #### [facility] [address] [place], [address] WBC (Bld) [#/Vol] 6.5 10*3/uL Normal 4.4-11.0 [facility] Comment on above: Performed By: #### L 100.0100, L502.0250, L500.4050, L500.4100 #### [facility] [address] [place], [address] Calculated very low density lipoprotein (VLDL) cholesterol measurementOrdered By: Annamarie Medina on 11-05-2024 Calculated very low density lipoprotein (VLDL) cholesterol measurement 18 mg/dL 5-40 [facility] Carbon dioxide, total [Moles /volume] in Central venous bloodOrdered By: Annamarie Medina on 11-05-2024 CO2 [Moles/Vol] 22.8 mmol/L 21.0-32.0 [facility] Chloride assayOrdered By: Marc Medina on 11-05-2024 Chloride [Moles/Vol] 106 mmol/L 98-108 [facility] Comprehensive Metabolic Prof ilon 11-05-2024 Albumin [Mass/Vol] 4.0 g/dL Normal 3.4-4.8 [facility] Comment on above: Performed By: #### L 100.0100, L502.0250, L500.4050, L500.4100 #### [facility] [address] [place], [address] Albumin/Globulin [Mass ratio] 1.2 {ratio} Normal 0.9-2.4 [facility] Comment on above: Performed By: #### L 100.0100, L502.0250, L500.4050, L500.4100 #### [facility] [address] [place], [address] ALK PHOS 77 U/L Normal 40-129 [facility] Comment on above: Performed By: #### L 100.0100, L502.0250, L500.4050, L500.4100 #### [facility] [address] [place], [address] ALT [Catalytic activity/Vol] 35 U/L Normal <=46 [facility] Comment on above: Performed By: #### L 100.0100, L502.0250, L500.4050, L500.4100 #### [facility] [address] [place], [address] AST [Catalytic activity/Vol] 23 U/L Normal <=37 [facility] Comment on above: Performed By: #### L 100.0100, L502.0250, L500.4050, L500.4100 #### [facility] [address] [place], [address] Bilirubin [Mass/Vol] 0.36 mg/dL Normal 0.00-1.30 [facility] Comment on above: Performed By: #### L 100.0100, L502.0250, L500.4050, L500.4100 #### [facility] [address] [place], [address] BUN/CRE 18.7 RATIO Normal 10-20 [facility] Comment on above: Performed By: #### L 100.0100, L502.0250, L500.4050, L500.4100 #### [facility] [address] [place], [address] Calcium [Mass/Vol] 9.7 mg/dL Normal 7.6-11.0 [facility] Comment on above: Performed By: #### L 100.0100, L502.0250, L500.4050, L500.4100 #### [facility] [address] [place], [address] Chloride [Moles/Vol] 106 mmol/L Normal 98-108 [facility] Comment on above: Performed By: #### L 100.0100, L502.0250, L500.4050, L500.4100 #### [facility] [address] [place], [address] CO2 [Moles/Vol] 22.8 mmol/L Normal 21.0-32.0 [facility] Comment on above: Performed By: #### L 100.0100, L502.0250, L500.4050, L500.4100 #### [facility] [address] [place], [address] Creatinine [Mass/Vol] 0.91 mg/dL Normal 0.70-1.20 [facility] Comment on above: Performed By: #### L 100.0100, L502.0250, L500.4050, L500.4100 #### [facility] [address] [place], [address] GAP 11 Normal 5-15 [facility] Comment on above: Performed By: #### L 100.0100, L502.0250, L500.4050, L500.4100 #### [facility] [address] [place], [address] GFR/1.73 sq M.predicted among non-blacks MDRD (S/P/Bld) [Vol rate/Area] 91 mL/min/{1.73_m2} Normal >60 [facility] Comment on above: Result Comment: mL/m in/1.73m2 CKD-EPI Creatinine Equation (2020) Performed By: #### L 100.0100, L502.0250, L500.4050, L500.4100 #### [facility] [address] [place], [address] Globulin (S) [Mass/Vol] 3.3 g/dL Normal 2.2-4.2 [facility] Comment on above: Performed By: #### L 100.0100, L502.0250, L500.4050, L500.4100 #### [facility] [address] [place], [address] Glucose [Mass/Vol] 133 mg/dL High 70-99 [facility] Comment on above: Performed By: #### L 100.0100, L502.0250, L500.4050, L500.4100 #### [facility] [address] [place], [address] Potassium [Moles/Vol] 4.1 mmol/L Normal 3.3-5.1 [facility] Comment on above: Performed By: #### L 100.0100, L502.0250, L500.4050, L500.4100 #### [facility] [address] [place], [address] Sodium [Moles/Vol] 140 mmol/L Normal 133-145 [facility] Comment on above: Performed By: #### L 100.0100, L502.0250, L500.4050, L500.4100 #### [facility] [address] [place], [address] T PROT 7.3 g/dL Normal 5.9-8.4 [facility] Comment on above: Performed By: #### L 100.0100, L502.0250, L500.4050, L500.4100 #### [facility] [address] [place], [address] Urea nitrogen [Mass/Vol] 17 mg/dL Normal 4-19 [facility] Comment on above: Performed By: #### L 100.0100, L502.0250, L500.4050, L500.4100 #### [facility] [address] [place], [address] Eosinophil percentageOrdered By: Annamarie Medina on 11-05-2024 Eosinophils/100 WBC (Bld) 0.9 % 0-5 [facility] Erythrocyte distribution wid th ratioOrdered By: Annamarie Medina on 11-05-2024 Erythrocyte distribution width (RBC) [Ratio] 14.4 % 11.6-14.6 [facility] Erythrocyte distribution wid th standard deviationOrdered By: Annamarie Medina on 11-05-2024 Erythrocyte distribution width (RBC) [Ratio] 50.0 fl High 35.1-43.9 [facility] Glomerular filtration rate ( GFR) estimation/1.73 sq m using serum, plasma, or whole bOrdered By: Annamarie Medina on 11-05-2024 GFR/1.73 sq M.predicted among non-blacks MDRD (S/P/Bld) [Vol rate/Area] 91 mL/min/{1.73_m2} >60 [facility] Comment on above: mL/min/1.73m2 CKD-EP I Creatinine Equation (2020) Hematocrit Auto (Bld) [Volum e fraction]Ordered By: Annamarie Medina on 11-05-2024 Hematocrit (Bld) [Volume fraction] 35.0 % Low 40-54 [facility] Hemoglobin measurementOrdere d By: Annamarie Medina on 11-05-2024 Hemoglobin (Bld) [Mass/Vol] 12.0 g/dL Low 13.0-16.5 [facility] Immature granulocytes/100 WB C Auto (Bld)Ordered By: Annamarie Medina on 11-05-2024 Immature granulocytes/100 WBC (Bld) 0.500 % 0.0-0.9 [facility] Comment on above: IG% - Immature Granu locytes (promyelocytes, myelocytes and metamyelocytes) > 1% indicates that a LEFT SHIFT is Present. LDL calc ser/plasOrdered By: Annamarie Medina on 11-05-2024 Cholesterol in LDL [Mass/Vol] 52 mg/dL [facility] Comment on above: Pmwpiosimi=251-457 m g/dL & Higher Vlkg=822 mg/dL or greaterFriedwald Equation for LDL-C Laboratory - Chemistry and C hemistry - challengeOrdered By: Annamarie Medina on 11-05-2024 AST [Catalytic activity/Vol] 23 U/L <38 [facility] Lipid Profileon 11-05-2024 CHOL:HDL 2.29 Normal [facility] Comment on above: Performed By: #### L 100.0100, L502.0250, L500.4050, L500.4100 #### [facility] [address] [place], [place], [id number] Cholesterol [Mass/Vol] 123 mg/dL Normal <=200 [facility] Comment on above: Result Comment: Chol esterol level, Desirable <200 mg/dL Borderline high cholesterol 200-239 mg/dL High cholesterol >=240 mg/dL Recommendations of the NCEP Adult Treatment Panel for the following risk-cutoff thresholds for the [place] population. Performed By: #### L 100.0100, L502.0250, L500.4050, L500.4100 #### [facility] [address] [place], [address] Cholesterol in HDL [Mass/Vol] 54 mg/dL Normal [facility] Comment on above: Result Comment: Carolyn onal Cholesterol Education Program (NCEP) guidelines: <40 mg/dL: Low HDL-cholesterol (major risk factor for CHD) >= 60 mg/dL: High HDL-cholesterol (negative risk factor for CHD) HDL-cholesterol is affected by a number of factors, e.g. smoking, exercise, hormones, sex and age. Performed By: #### L 100.0100, L502.0250, L500.4050, L500.4100 #### [facility] [address] [place], [address] Cholesterol in LDL [Mass/Vol] 52 mg/dL Normal [facility] Comment on above: Result Comment: Bord nnwfsi=144-771 mg/dL Higher Dowr=522 mg/dL or greater Friedwald Equation for LDL-C Performed By: #### L 100.0100, L502.0250, L500.4050, L500.4100 #### [facility] [address] [place], [address] Cholesterol in VLDL [Mass/Vol] 18 mg/dL Normal 5-40 [facility] Comment on above: Performed By: #### L 100.0100, L502.0250, L500.4050, L500.4100 #### [facility] [address] [place], [address] Triglyceride [Mass/Vol] 88 mg/dL Normal [facility] Comment on above: Result Comment: The drugs N-Acetylcysteine and Metamizole may falsely depress this assay. Normal range: <150 mg/dL Borderline High: 150-199 mg/dL High: 200-499 mg/dL Very High: >500 mg/dL Performed By: #### L 100.0100, L502.0250, L500.4050, L500.4100 #### [facility] [address] [place], [place], [id number] MCV (mean corpuscular volume ) determinationOrdered By: Annamarie Medina on 11-05-2024 MCV (RBC) [Entitic vol] 94.6 fL High 80-94 [facility] Mean corpuscular hemoglobin (MCH) determinationOrdered By: Annamarie Medina on 11-05-2024 MCH (RBC) [Entitic mass] 32.4 pg High 27.0-32.0 [facility] Mean corpuscular hemoglobin concentration (MCHC) determinationOrdered By: Annamarie Medina on 11-05-2024 MCHC (RBC) [Mass/Vol] 34.3 g/dL 32-36 [facility] Mean platelet volume determi nationOrdered By: Annamarie Medina on 11-05-2024 Platelet mean volume (Bld) [Entitic vol] 9.7 fL 6.2-12.0 [facility] Microalb:Creat Ratio,Random URon 11-05-2024 Creatinine [Mass/Vol] 67.10 mg/dL Normal 39.00-259.00 [facility] Comment on above: Performed By: #### L 100.0100, L502.0250, L500.4050, L500.4100 #### [facility] [address] [place], [place], [address] MALB:CREAT 82.7 mg/g CRE High <30 mg/g CRE [facility] Comment on above: Performed By: #### L 100.0100, L502.0250, L500.4050, L500.4100 #### [facility] [address] [place], [place], [id number] MICROALBUMIN,UR 55.5 mg/L Normal <20 mg/L [facility] Comment on above: Performed By: #### L 100.0100, L502.0250, L500.4050, L500.4100 #### [facility] [address] [place], [address] Monocyte percentageOrdered B y: Annamarie Medina on 11-05-2024 Monocytes/100 WBC (Bld) 5.8 % 0-10 [facility] Neutrophil percentageOrdered By: Annamarie Medina on 11-05-2024 Neutrophils/100 WBC (Bld) 67.6 % 47-70 [facility] Nucleated red blood cell per centageOrdered By: Annamarie Medina on 11-05-2024 Nucleated RBC/100 WBC (Bld) [Ratio] 0 % 0-5 [facility] Platelet countOrdered By: Marc Medina on 11-05-2024 Platelets (Bld) [#/Vol] 230 10*3/uL 150-450 [facility] Potassium measurement (mass/ volume)Ordered By: Annamarie Medina on 11-05-2024 Potassium (Unsp spec) [Mass/Vol] 4.1 mmol/L 3.3-5.1 [facility] RBC Auto (Bld) [#/Vol]Ordere d By: Annamarie Medina on 11-05-2024 RBC (Bld) [#/Vol] 3.70 10*6/uL Low 4.6-6.2 [facility] Random urine creatinine shaun urement (mass/volume)Ordered By: Annamarie Medina on 11-05-2024 Creatinine Unsp time (U) [Mass/Vol] 67.10 mg/dL 39.00-259.00 [facility] Screening total cholesterol/ high density lipoprotein (HDL) cholesterol ratioOrdered By: Annamarie Medina on 11-05-2024 Cholesterol.total/Choles terol in HDL [Mass ratio] 2.29 {ratio} [facility] Serum creatinine measurement (mass/volume)Ordered By: Annamarie Medina on 11-05-2024 Creatinine [Mass/Vol] 0.91 mg/dL 0.70-1.20 [facility] Serum globulin measurementOr dered By: Annamarie Mdeina on 11-05-2024 Globulin (S) [Mass/Vol] 3.3 g/dL 2.2-4.2 [facility] Serum glucose measurement (m ass/volume)Ordered By: Annamarie Medina on 11-05-2024 Glucose [Mass/Vol] 133 mg/dL High 70-99 [facility] Serum or plasma alanine valverde otransferase (ALT) measurementOrdered By: Annamarie Medina on 11-05-2024 ALT [Catalytic activity/Vol] 35 U/L <47 [facility] Serum or plasma albumin shaun urement (mass/volume)Ordered By: Annamarie Medina on 11-05-2024 Albumin [Mass/Vol] 4.0 g/dL 3.4-4.8 [facility] Serum or plasma albumin/glob ulin mass ratioOrdered By: Annamarie Medina on 11-05-2024 Albumin/Globulin [Mass ratio] 1.2 {ratio} 0.9-2.4 [facility] Serum or plasma alkaline rigo sphatase measurementOrdered By: Annamarie Medina on 11-05-2024 ALP [Catalytic activity/Vol] 77 U/L 40-129 [facility] Serum or plasma calcium shaun urement (mass/volume)Ordered By: Annamarie Medina on 11-05-2024 Calcium [Mass/Vol] 9.7 mg/dL 7.6-11.0 [facility] Serum or plasma cholesterol in HDL measurement (mass/volume)Ordered By: Annamarie Medina on 11-05-2024 Cholesterol in HDL [Mass/Vol] 54 mg/dL >40 [facility] Comment on above: National Cholesterol Education Program (NCEP) guidelines:<40 mg/dL: Low HDL-cholesterol (major risk factor for CHD)>= 60 mg/dL: High HDL-cholesterol (negative risk factor for CHD)HDL-cholesterol is affected by a number of factors, e.g. smoking, exercise, hormones, sex and age. Serum or plasma cholesterol measurement (mass/volume)Ordered By: Annamarie Medina on 11-05-2024 Cholesterol [Mass/Vol] 123 mg/dL <201 [facility] Comment on above: Cholesterol level, D esirable <200 mg/dLBorderline high cholesterol 200-239 mg/dLHigh cholesterol >=240 mg/dLRecommendations of the NCEP Adult Treatment Panel for the following risk-cutoff thresholds for the [place] population. Serum or plasma urea nitroge n measurement (mass/volume)Ordered By: Annamarie Medina on 11-05-2024 Urea nitrogen [Mass/Vol] 17 mg/dL 4-19 [facility] Sodium levelOrdered By: Sanjuanita Medina on 11-05-2024 Sodium [Moles/Vol] 140 mmol/L 133-145 [facility] Total proteinOrdered By: Antoni Medina on 11-05-2024 Protein [Mass/Vol] 7.3 g/dL 5.9-8.4 [facility] Triglycerides measurementOrd ered By: Annamarie Medina on 11-05-2024 Triglyceride [Mass/Vol] 88 mg/dL <199 [facility] Comment on above: The drugs N-Acetylcy steine and Metamizole may falsely depress this assay. Normal range: <150 mg/dLBorderline High: 150-199 mg/dLHigh: 200-499 mg/dLVery High: >500 mg/dL Urine albumin measurement wi detection limit of 20 mg/L or less (mass/volume)Ordered By: Annamarie Medina on 11-05-2024 Albumin DL <= 20 mg/L (U) [Mass/Vol] 55.5 mg/L <20 mg/L [facility] White blood cell (WBC) count Ordered By: Annamarie Medina on 11-05-2024 WBC (Bld) [#/Vol] 6.5 10*3/uL 4.4-11.0 [facility] PSA,Total- Diagnosticon 07-31 PSA, DIAGNOSTIC 6.65 ng/mL High 0.00-4.00 [facility] Comment on above: Result Comment: This test [...] confirm baseline values. Performed By: #### L 101.9900, L501.6710, L505.7010, L3100.5475, L4600.0100 #### [facility] [address] [place], [place], [id number] ANTINUCLEAR ANTIBODIES DIREC Ton 05-19-2024 [place],DIRECT Negative Normal Negative [facility] Comment on above: Result Comment: Perf ormed at: [email or web address] [id number] Orthopaedic Technologist: Bull Rico PhD, Phone: [phone] Performed By: #### L 101.9900, L501.6710, L505.7010, L3100.5475, L4600.0100 #### [facility] [address] [place], [address] CCP IgG Antibodieson 025 CCP IgG Ab. 4 units Normal 0-19 [facility] Comment on above: Result Comment: Nega tive <20 Weak positive 20 - 39 Moderate positive 40 - 59 Strong positive >59 Performed at: [email or web address] [id number] Orthopaedic Technologist: Bull Rico PhD, Phone: [phone] Performed By: #### L 101.9900, L501.6710, L505.7010, L3100.5475, [id number] #### [facility] [address] [place], [place], [id number] [place] serumOrdered By: Annamarie Medina on 05-17-2024 Anti-Nuclear Antibody Screen Negative Negative [facility] Comment on above: Performed at: [facility] [id number] Director: Bull Rico PhD, Phone: [phone] CRPon 05-17-2024 C-REACTIVE PROT 15.70 mg/L High 0.0-3.0 [facility] Comment on above: Performed By: #### L 101.9900, L501.6710, L505.7010, L3100.5475, [id number] #### [facility] [address] [place], [address] CRP [Mass/Vol]Ordered By: Marc Medina on 05-17-2024 C-Reactive Protein Extended Range 15.70 mg/L High 0.0-3.0 [facility] Cyclic citrullinated peptide IgG QnOrdered By: Annamarie Medina on 05-17-2024 Cyclic Citrullinated Peptide IgG Ab 4 units 0-19 [facility] Comment on above: Negative <20 Weak po sitive 20 - 39 Moderate positive 40 - 59 Strong positive >59Performed at: [facility] [id number] Director: Bull Rico PhD, Phone: [phone] Erythrocyte Sed Rateon 05-17 SED RATE 18 mm/hr Normal 0-20 [facility] Comment on above: Performed By: #### L 101.9900, L501.6710, L505.7010, L3100.5475, L4600.0100 #### [facility] [address] [place], [address] Erythrocyte sedimentation ra teOrdered By: Annamarie Medina on 05-17-2024 ESR (Bld) [Velocity] 18 mm/h 0-20 [facility] Rheumatoid Factoron 05-18-19 25 RHEUMATOID FAC < 10.0 Normal <15 [facility] Comment on above: Performed By: #### L 101.9900, L501.6710, L505.7010, L3100.5475, L4600.0100 #### [facility] [address] [place], [address] Rheumatoid factor Ql (S)Orde red By: Annamarie Medina on 05-17-2024 Rheumatoid Factor < 10.0 IU/mL <15 [facility] Serum or plasma C reactive p rotein measurement (mass/volume)Ordered By: Annamarie Medina on 05-17-2024 CRP [Mass/Vol] 15.70 mg/L High 0.0-3.0 [facility] Serum or plasma cyclic citru llinated peptide IgG antibody assay (units/volume)Ordered By: Annamarie Medina on 05-17-2024 Cyclic citrullinated peptide IgG Qn 4 units 0-19 [facility] Comment on above: Negative <20 Weak po sitive 20 - 39 Moderate positive 40 - 59 Strong positive >59Performed at: - [facility] [address] [id number] Director: Bull Rico PhD, Phone: [phone] Serum rheumatoid factor dete ctionOrdered By: Annamarie Medina on 05-17-2024 Rheumatoid factor Ql (S) < 10.0 IU/mL <15 [facility] Diagnostic total prostate sp ecific antigen (PSA) measurementOrdered By: Uma Crook on 02-13-2024 Prostate Specific Antigen Total 16.10 ng/mL High 0.0-4.0 [facility] Comment on above: This test was perfor med using the TPSA assay method for [employer] chemistry system. Values obtained with differentassay methods cannot be used interchangably.When changing PSA assays in the course of monitoring apatient, additional sequential testing should be carriedout to confirm baseline values. PSA,Total- Diagnosticon 01-30 PSA, DIAGNOSTIC 16.10 ng/mL High 0.0-4.0 [facility] Comment on above: Result Comment: This test was performed using the TPSA assay method for the [employer] chemistry system. Values obtained with different assay methods cannot be used interchangably. When changing PSA assays in the course of monitoring a patient, additional sequential testing should be carried out to confirm baseline values. Performed By: #### L 501.9940 #### [facility] [address] [place], [address] Basophil percentageOrdered B y: Uma Crook on 05-26-2023 Basophil percentage 11.10 ng/mL 0.0-4.0 [facility] Comment on above: This test was perfor med using the TPSA assay method for the[employer]ension chemistry system. Values obtained with differentassay methods cannot be used interchangably.When changing PSA assays in the course of monitoring apatient, additional sequential testing should be carriedout to confirm baseline values. Basophil percentageOrdered B y: Turner Gupta on 04-28-2023 Basophil percentage < 1.0 mg/dL 0.70-1.30 [facility] No Panel InformationOrdered By: Turner Guzmanano on 04-28-2023 Bedside Estimated GFR (eGFR) > 60.0000 mL/min >60 [facility] Basophil percentageOrdered B y: Turner Gupta on 04-20-2023 Basophil percentage 20.60 ng/mL 0.0-4.0 [facility] Comment on above: This test was perfor med using the TPSA assay method for theDimension chemistry system. Values obtained with differentassay methods cannot be used interchangably.When changing PSA assays in the course of monitoring apatie, additional sequential testing should be carriedout to confirm baseline values. Thin prep Papanicolaou smear with manual screeningOrdered By: Turnernury Gupta on 04-03-2023 Thin prep Papanicolaou smear with manual screening 92 mg/dL 74-106 [facility] Comment on above: MANAGEMENT OF PATIEN T CARE PER NURSING PROTOCOL Glucose Glucometer (BldC) [M ass/Vol]Ordered By: James King on 02-02-2023 Glucose [Mass/Vol] 136 mg/dL 74-106 [facility] Comment on above: MANAGEMENT OF PATIEN T CARE PER NURSING PROTOCOL Basophil percentageOrdered B y: James King on 01-28-2023 Chloride [Moles/Vol] 108 mmol/L 98-107 [facility] Glucose [Mass/Vol] 73 mg/dL 74-106 [facility] Potassium [Moles/Vol] 4.2 mmol/L 3.5-5.1 [facility] Sodium [Moles/Vol] 140 mmol/L 136-145 [facility] WBC (Bld) [#/Vol] 5.6 10*3/uL 4.4-11.0 [facility] Blood erythrocytes count (nu mber/volume)Ordered By: James King on 01-28-2023 RBC (Bld) [#/Vol] 4.49 10*6/uL 4.6-6.2 [facility] Blood hemoglobin measurement (mass/volume)Ordered By: James King on 01-28-2023 Hemoglobin (Bld) [Mass/Vol] 13.8 g/dL 13.0-16.5 [facility] Blood platelet mean volumeOr dered By: James King on 01-28-2023 Platelet mean volume (Bld) [Entitic vol] 9.5 fL 6.2-12.0 [facility] Determination of erythrocyte mean corpuscular volume (MCV)Ordered By: James King on 01-28-2023 MCV (RBC) [Entitic vol] 94.0 fL 80-94 [facility] Hematocrit Auto (Bld) [Volum e fraction]Ordered By: James King on 01-28-2023 Hematocrit (Bld) [Volume fraction] 42.2 % 40-54 [facility] - Chemistry and C hemistry - challengeOrdered By: James King on 01-28-2023 CO2 [Moles/Vol] 30.0 mmol/L 21.0-32.0 [facility] Urea nitrogen/Creatinine [Mass ratio] 28.0 mg/mg 10-20 [facility] - Hematology and Cell countsOrdered By: James King on 01-28-2023 Erythrocyte distribution width (RBC) [Entitic vol] 41.3 fL 35.1-43.9 [facility] Erythrocyte distribution width (RBC) [Ratio] 11.9 % 11.6-14.6 [facility] MCH (RBC) [Entitic mass] 30.7 pg 27.0-32.0 [facility] MCHC Auto (RBC) [Mass/Vol]Or dered By: James King on 01-28-2023 MCHC (RBC) [Mass/Vol] 32.7 g/dL 32-36 [facility] No Panel InformationOrdered By: James King on 01-28-2023 Estimated GFR (MDRD) Amer 96 mL/min >60 [facility] Comment on above: GFR Calc Estimated GFR (MDRD) Non-Af Amer 79 mL/min >60 [facility] Comment on above: Non- GFR Calc Platelets bldOrdered By: Geoffrey King on 01-28-2023 Platelets (Bld) [#/Vol] 211 10*3/uL 150-450 [facility] Serum or plasma calcium shaun urement (mass/volume)Ordered By: James King on 01-28-2023 Calcium [Mass/Vol] 8.8 mg/dL 8.5-10.1 [facility] Serum or plasma creatinine m easurement (mass/volume)Ordered By: James King on 01-28-2023 Creatinine [Mass/Vol] 1.00 mg/dL 0.70-1.30 [facility] Comment on above: The validity of the calculated GFR & GFRAA in patients over 70 years has not been determined. Clinical correlation is essential. Serum or plasma urea nitroge n measurement (mass/volume)Ordered By: James King on 01-28-2023 Urea nitrogen [Mass/Vol] 28 mg/dL 7-18 [facility] Thin prep Papanicolaou smear with manual screeningOrdered By: James King on 01-28-2023 Thin prep Papanicolaou smear with manual screening 2 5-15 [facility] Whole blood hemoglobin A1c/t otal hemoglobin ratio (mass fraction)Ordered By: Jayjay Villarreal on 01-28-2023 HbA1c (Bld) [Mass fraction] 6.8 % 3.8-5.6 [facility] Comment on above: Normal < 5.7 % Predi abetic 5.7 - 6.4 % Diabetic >or= 6.5 % Please note range changes. Absolute lymphocyte countOrd ered By: Annamarie Medina on 12-20-2022 Lymphocytes Auto (Unsp spec) [#/Vol] 1.31 10*3/uL 0.83-4.51 [facility] Basophil percentageOrdered B y: Annamarie Medina on 12-20-2022 Basophils/100 WBC (Bld) 0.4 % 0-1 [facility] Bilirubin [Mass/Vol] 0.60 mg/dL 0.20-1.00 [facility] Comment on above: For patients on eltr ombopag therapy, use of Dimension [place] TBIL is not recommended. Chloride [Moles/Vol] 105 mmol/L 98-107 [facility] Cholesterol [Mass/Vol] 126 mg/dL <200 [facility] Comment on above: <200 mg/dL Desirable 200-240 mg/dL Borderline >240 mg/dL High Risk Eosinophils/100 WBC (Bld) 1.4 % 0-5 [facility] Glucose [Mass/Vol] 132 mg/dL 74-106 [facility] Comment on above: Fasting Glucose resu lt greater than or equal to 126 mg/dL suggests DIABETES MELLITUS per A.D.A. criteria. Neutrophils (Bld) [#/Vol] 3.3 10*3/uL 2.0-7.7 [facility] Neutrophils/100 WBC (Bld) 64.7 % 47-70 [facility] Potassium [Moles/Vol] 3.9 mmol/L 3.5-5.1 [facility] Protein [Mass/Vol] 7.3 g/dL 6.4-8.2 [facility] Sodium [Moles/Vol] 142 mmol/L 136-145 [facility] Triglyceride [Mass/Vol] 73 mg/dL <199 [facility] Comment on above: The drugs N-Acetylcy steine and Metamizole may falsely depress this assay.Serum Triglycerides Reference Interval Normal <150 mg/dL Borderline high 150 - 199 mg/dL High 200 - 499 mg/dL Very High > or = 500 mg/dL WBC (Bld) [#/Vol] 5.1 10*3/uL 4.4-11.0 [facility] Blood erythrocytes count (nu mber/volume)Ordered By: Annamarie Medina on 12-20-2022 RBC (Bld) [#/Vol] 4.68 10*6/uL 4.6-6.2 [facility] Blood hemoglobin measurement (mass/volume)Ordered By: Annamarie Medina on 12-20-2022 Hemoglobin (Bld) [Mass/Vol] 14.5 g/dL 13.0-16.5 [facility] Blood lymphocytes/100 leukoc ytesOrdered By: Annamarie Medina on 12-20-2022 Lymphocytes/100 WBC (Bld) 25.8 % 19-41 [facility] Blood monocytes/100 leukocyt esOrdered By: Annamarie Medina on 12-20-2022 Monocytes/100 WBC (Bld) 7.5 % 0-10 [facility] Blood platelet mean volumeOr dered By: Annamarie Medina on 12-20-2022 Platelet mean volume (Bld) [Entitic vol] 9.9 fL 6.2-12.0 [facility] Determination of erythrocyte mean corpuscular volume (MCV)Ordered By: Annamarie Medina on 12-20-2022 MCV (RBC) [Entitic vol] 94.0 fL 80-94 [facility] Hematocrit Auto (Bld) [Volum e fraction]Ordered By: Annamarie Medina on 12-20-2022 Hematocrit (Bld) [Volume fraction] 44.0 % 40-54 [facility] - Chemistry and C hemistry - challengeOrdered By: Annamarie Medina on 12-20-2022 ALP [Catalytic activity/Vol] 75 U/L 45-117 [facility] ALT [Catalytic activity/Vol] 50 U/L 16-61 [facility] CO2 [Moles/Vol] 31.0 mmol/L 21.0-32.0 [facility] Globulin (S) [Mass/Vol] 3.2 g/dL 2.2-4.2 [facility] Urea nitrogen/Creatinine [Mass ratio] 21.9 mg/mg 10-20 [facility] - Hematology and Cell countsOrdered By: Annamarie Medina on 12-20-2022 Erythrocyte distribution width (RBC) [Entitic vol] 41.2 fL 35.1-43.9 [facility] Erythrocyte distribution width (RBC) [Ratio] 11.9 % 11.6-14.6 [facility] Immature granulocytes/100 WBC (Bld) 0.200 % 0.0-0.9 [facility] Comment on above: IG% - Immature Granu locytes (promyelocytes, myelocytes and metamyelocytes) > 1% indicates that a LEFT SHIFT is Present. MCH (RBC) [Entitic mass] 31.0 pg 27.0-32.0 [facility] Nucleated RBC/100 WBC (Bld) [Ratio] 0 % 0-5 [facility] Auto (RBC) [Mass/Vol]Or dered By: Annamarie Medina on 12-20-2022 MCHC (RBC) [Mass/Vol] 33.0 g/dL 32-36 [facility] No Panel InformationOrdered By: Annamarie Medina on 12-20-2022 Estimated GFR (MDRD) Amer 112 mL/min >60 [facility] Comment on above: GFR Calc Estimated GFR (MDRD) Non-Af Amer 93 mL/min >60 [facility] Comment on above: Non- GFR Calc Urine Microalbumin/Creatinine Ratio 7.1 mg/g CRE <30 [facility] Platelets bldOrdered By: Antoni Medina on 12-20-2022 Platelets (Bld) [#/Vol] 207 10*3/uL 150-450 [facility] Serum or plasma albumin shaun urement (mass/volume)Ordered By: Annamarie Medina on 12-20-2022 Albumin [Mass/Vol] 4.1 g/dL 3.2-5.0 [facility] Serum or plasma albumin/glob ulin mass ratioOrdered By: Annamarie Medina on 12-20-2022 Albumin/Globulin [Mass ratio] 1.3 {ratio} 0.9-2.4 [facility] Serum or plasma calcium shaun urement (mass/volume)Ordered By: Annamarie Medina on 12-20-2022 Calcium [Mass/Vol] 9.0 mg/dL 8.5-10.1 [facility] Serum or plasma cholesterol in HDL measurement (mass/volume)Ordered By: Annamarie Medina on 12-20-2022 Cholesterol in HDL [Mass/Vol] 57 mg/dL >40 [facility] Comment on above: The drugs N-Acetylcy steine and Metamizole may falsely depress this assay. Reference Range HDL <40 mg/dL Low HDL Cholesterol HDL >or= 60 mg/dL High HDL Cholesterol Serum or plasma cholesterol in VLDL measurement (mass/volume)Ordered By: Annamarie Medina on 12-20-2022 Cholesterol in VLDL [Mass/Vol] 15 mg/dL 5-40 [facility] Serum or plasma creatinine m easurement (mass/volume)Ordered By: Annamarie Medina on 12-20-2022 Creatinine [Mass/Vol] 0.87 mg/dL 0.70-1.30 [facility] Comment on above: The validity of the calculated GFR & GFRAA in patients over 70 years has not been determined. Clinical correlation is essential. Serum or plasma low density lipoprotein (LDL) cholesterol measurement (mass/volume)Ordered By: Annamarie Medina on 12-20-2022 Cholesterol in LDL [Mass/Vol] 54 mg/dL 0-130 [facility] Serum or plasma urea nitroge n measurement (mass/volume)Ordered By: Annamarie Medina on 12-20-2022 Urea nitrogen [Mass/Vol] 19 mg/dL 7-18 [facility] Thin prep Papanicolaou smear with manual screeningOrdered By: Annamarie Medina on 12-20-2022 Thin prep Papanicolaou smear with manual screening 32 U/L 15-37 [facility] Thin prep Papanicolaou smear with manual screening 6 5-15 [facility] Thin prep Papanicolaou smear with manual screening 6.0 mg/L NO RANGE EST. [facility] Urine creatinine measurement (mass/volume)Ordered By: Annamarie Medina on 12-20-2022 Creatinine (U) [Mass/Vol] 84.50 mg/dL NO RANGE EST. [facility] Absolute lymphocyte countOrd ered By: Fatuma Starr on 07-05-2022 Lymphocytes Auto (Unsp spec) [#/Vol] 1.35 10*3/uL 0.83-4.51 [facility] Basophil percentageOrdered B y: Fatuma Starr on 07-05-2022 Basophils/100 WBC (Bld) 0.9 % 0-1 [facility] Bilirubin [Mass/Vol] 0.40 mg/dL 0.20-1.00 [facility] Comment on above: For patients on eltr ombopag therapy, use of Dimension [place] TBIL is not recommended. Chloride [Moles/Vol] 109 mmol/L 98-107 [facility] Cholesterol [Mass/Vol] 130 mg/dL <200 [facility] Comment on above: <200 mg/dL Desirable 200-240 mg/dL Borderline >240 mg/dL High Risk Eosinophils/100 WBC (Bld) 1.3 % 0-5 [facility] Glucose [Mass/Vol] 118 mg/dL 74-106 [facility] Comment on above: Fasting Glucose resu lt from 100 to 125 mg/dL suggests IMPAIRED HOMEOSTASIS per A.D.A. criteria. Neutrophils (Bld) [#/Vol] 2.8 10*3/uL 2.0-7.7 [facility] Neutrophils/100 WBC (Bld) 61.1 % 47-70 [facility] Potassium [Moles/Vol] 3.9 mmol/L 3.5-5.1 [facility] Protein [Mass/Vol] 7.0 g/dL 6.4-8.2 [facility] Sodium [Moles/Vol] 141 mmol/L 136-145 [facility] Triglyceride [Mass/Vol] 74 mg/dL <199 [facility] Comment on above: The drugs N-Acetylcy steine and Metamizole may falsely depress this assay.Serum Triglycerides Reference Interval Normal <150 mg/dL Borderline high 150 - 199 mg/dL High 200 - 499 mg/dL Very High > or = 500 mg/dL WBC (Bld) [#/Vol] 4.6 10*3/uL 4.4-11.0 [facility] Blood erythrocytes count (nu mber/volume)Ordered By: Fatuma Starr on 07-05-2022 RBC (Bld) [#/Vol] 4.65 10*6/uL 4.6-6.2 [facility] Blood hemoglobin measurement (mass/volume)Ordered By: Fatuma Starr on 07-05-2022 Hemoglobin (Bld) [Mass/Vol] 14.1 g/dL 13.0-16.5 [facility] Blood lymphocytes/100 leukoc ytesOrdered By: Fatuma Starr on 07-05-2022 Lymphocytes/100 WBC (Bld) 29.2 % 19-41 [facility] Blood monocytes/100 leukocyt esOrdered By: Fatuma Starr on 07-05-2022 Monocytes/100 WBC (Bld) 7.3 % 0-10 [facility] Blood platelet mean volumeOr dered By: Fatuma Starr on 07-05-2022 Platelet mean volume (Bld) [Entitic vol] 9.9 fL 6.2-12.0 [facility] Determination of erythrocyte mean corpuscular volume (MCV)Ordered By: Fatuma Starr on 07-05-2022 MCV (RBC) [Entitic vol] 92.7 fL 80-94 [facility] Hematocrit Auto (Bld) [Volum e fraction]Ordered By: Fatuma Starr on 07-05-2022 Hematocrit (Bld) [Volume fraction] 43.1 % 40-54 [facility] - Chemistry and C hemistry - challengeOrdered By: Fatumamark Starr on 07-05-2022 ALP [Catalytic activity/Vol] 63 U/L 45-117 [facility] ALT [Catalytic activity/Vol] 40 U/L 16-61 [facility] CO2 [Moles/Vol] 28.0 mmol/L 21.0-32.0 [facility] Globulin (S) [Mass/Vol] 3.2 g/dL 2.2-4.2 [facility] Urea nitrogen/Creatinine [Mass ratio] 20.1 mg/mg 10-20 [facility] - Hematology and Cell countsOrdered By: [place] Matty on 07-05-2022 Erythrocyte distribution width (RBC) [Entitic vol] 40.9 fL 35.1-43.9 [facility] Erythrocyte distribution width (RBC) [Ratio] 12.0 % 11.6-14.6 [facility] Immature granulocytes/100 WBC (Bld) 0.200 % 0.0-0.9 [facility] Comment on above: IG% - Immature Granu locytes (promyelocytes, myelocytes and metamyelocytes) > 1% indicates that a LEFT SHIFT is Present. MCH (RBC) [Entitic mass] 30.3 pg 27.0-32.0 [facility] Nucleated RBC/100 WBC (Bld) [Ratio] 0 % 0-5 [facility] MCHC Auto (RBC) [Mass/Vol]Or dered By: Fatuma Starr on 07-05-2022 MCHC (RBC) [Mass/Vol] 32.7 g/dL 32-36 [facility] No Panel InformationOrdered By: Fatuma Starr on 07-05-2022 Estimated GFR (MDRD) Amer 109 mL/min >60 [facility] Comment on above: GFR Calc Estimated GFR (MDRD) Non-Af Amer 90 mL/min >60 [facility] Comment on above: Non- GFR Calc Prostate Specific Antigen Screen 75.50 ng/mL 0.00-4.00 [facility] Comment on above: This test was perfor med using the TPSA assay method for the[employer] chemistry system. Values obtained with differentassay methods cannot be used interchangably.When changing PSA assays in the course of monitoring apatient, additional sequential testing should be carriedout to confirm baseline values. Platelets bldOrdered By: Mandi Starr on 07-05-2022 Platelets (Bld) [#/Vol] 192 10*3/uL 150-450 [facility] Serum or plasma albumin shaun urement (mass/volume)Ordered By: Fatuma Starr on 07-05-2022 Albumin [Mass/Vol] 3.8 g/dL 3.2-5.0 [facility] Serum or plasma albumin/glob ulin mass ratioOrdered By: Fatuma Starr on 07-05-2022 Albumin/Globulin [Mass ratio] 1.2 {ratio} 0.9-2.4 [facility] Serum or plasma calcium shaun urement (mass/volume)Ordered By: Fatuma Starr on 07-05-2022 Calcium [Mass/Vol] 9.0 mg/dL 8.5-10.1 [facility] Serum or plasma cholesterol in HDL measurement (mass/volume)Ordered By: Fatuma Starr on 07-05-2022 Cholesterol in HDL [Mass/Vol] 57 mg/dL >40 [facility] Comment on above: The drugs N-Acetylcy steine and Metamizole may falsely depress this assay. Reference Range HDL <40 mg/dL Low HDL Cholesterol HDL >or= 60 mg/dL High HDL Cholesterol Serum or plasma cholesterol in VLDL measurement (mass/volume)Ordered By: Fatuma Starr on 07-05-2022 Cholesterol in VLDL [Mass/Vol] 15 mg/dL 5-40 [facility] Serum or plasma creatinine m easurement (mass/volume)Ordered By: Fatuma Starr on 07-05-2022 Creatinine [Mass/Vol] 0.90 mg/dL 0.70-1.30 [facility] Comment on above: The validity of the calculated GFR & GFRAA in patients over 70 years has not been determined. Clinical correlation is essential. Serum or plasma low density lipoprotein (LDL) cholesterol measurement (mass/volume)Ordered By: [place] Matty on 07-05-2022 Cholesterol in LDL [Mass/Vol] 58 mg/dL 0-130 [facility] Serum or plasma urea nitroge n measurement (mass/volume)Ordered By: Fatumamark Starr on 07-05-2022 Urea nitrogen [Mass/Vol] 18 mg/dL 7-18 [facility] Thin prep Papanicolaou smear with manual screeningOrdered By: [facility] on 07-05-2022 Thin prep Papanicolaou smear with manual screening 34 U/L 15-37 [facility] Thin prep Papanicolaou smear with manual screening 4 5-15 [facility] Vital Signs Date Time Vital Sign Value Performing Clinician Faci lity 04-04-2023 10:15-0500 Body temperature 98.4 [degF] Dr. Browning [facility] 04-04-2023 10:15-0500 Diastolic blood pressure 68 mm[Hg] Dr. Browning [facility] 04-04-2023 10:15-0500 Heart rate 66 /min Dr. Browning [facility] 04-04-2023 10:15-0500 Respiratory rate 16 /min Dr. Browning [facility] 04-04-2023 10:15-0500 SaO2% (BldA) [Mass fraction] 98 % Dr. Browning [facility] 04-04-2023 10:15-0500 Systolic blood pressure 134 mm[Hg] Dr. Browning [facility] 04-04-2023 07:50-0500 Body temperature 97.8 [degF] Dr. Browning [facility] 04-04-2023 07:50-0500 Diastolic blood pressure 79 mm[Hg] Dr. Browning [facility] 04-04-2023 07:50-0500 Heart rate 67 /min Dr. Browning [facility] 04-04-2023 07:50-0500 Respiratory rate 16 /min Dr. Browning [facility] 04-04-2023 07:50-0500 SaO2% (BldA) [Mass fraction] 96 % Dr. Browning [facility] 04-04-2023 07:50-0500 Systolic blood pressure 124 mm[Hg] Dr. Nam Olivia [facility] 04-03-2023 08:45-0500 Body height [facility].[address] [facility] 04-03-2023 08:45-0500 Body mass index (BMI) [Ratio] 24.2 kg/m2 Dr. Browning [facility] 04-03-2023 08:45-0500 Body weight 76.[address] Browning [facility] 02-02-2023 12:10-0500 Body temperature 97.9 [degF] Dr. Browning [facility] 02-02-2023 12:10-0500 Diastolic blood pressure 71 mm[Hg] Dr. Browning [facility] 02-02-2023 12:10-0500 Heart rate 67 /min Dr. Browning [facility] 02-02-2023 12:10-0500 Respiratory rate 14 /min Dr. Browning [facility] 02-02-2023 12:10-0500 SaO2% (BldA) [Mass fraction] 96 % Dr. Browning [facility] 02-02-2023 12:10-0500 Systolic blood pressure 121 mm[facility] 02-02-2023 07:15-0500 Body height 177.[address] Browning [facility] 02-02-2023 07:15-0500 Body mass index (BMI) [Ratio] 23.3 kg/m2 Dr. Browning [facility] 02-02-2023 07:15-0500 Body weight [address] Browning [facility] 01-15-2023 15:05-0500 Body mass index (BMI) [Ratio] 23.3 kg/m2 Dr. Browning [facility] 01-15-2023 15:05-0500 Body weight 75.[address] Browning [facility] 01-15-2023 15:05-0500 Diastolic blood pressure 75 mm[Hg] Dr. Browning [facility] 01-15-2023 15:05-0500 Heart rate 65 /min Dr. Nam Olivia [facility] 01-15-2023 15:05-0500 Respiratory rate 16 /min Dr. Nam Olivia [facility] 01-15-2023 15:05-0500 Systolic blood pressure 127 mm[Hg] Dr. Browning [facility] Encounters Encounter Date Encounter Type Care Provider Facility Start: 11-05-2024 End: 11-05-[address] Annamarie Medina MD Work Phone: -Laboratory Start: 11-05-2024 End: 11-05-[address] Annamarie Medina MD -Laboratory Work Phone: Start: 11-05-2024 End: 11-05-20[facility] Start: 09-25-2024 End: 09-25-2024 Emergency department patient visit DR SON MALDONADO DO [facility] Start: 08-10-2024 End: 08-10-[address] Annamarie Medina MD Work Phone: [facility] Work Phone: Start: 08-10-2024 End: 08-10-2024 Patient encounter procedure mUa Crook -Laboratory Work Phone: Start: 08-10-2024 End: 08-10-2024 ambulatory Annamarie Medina Facility:[facility] Start: 05-17-2024 End: 05-17-[address] Annamarie Medina MD Work Phone: [facility] Work Phone: Start: 05-17-2024 End: 05-17-[address] Annamarie Medina MD -Lab Survey, Non Patient Start: 05-17-2024 End: 05-17-2024 ambulatory Annamarie Medina Facility:[facility] Start: 02-13-2024 End: 02-13-2024 Patient encounter procedure Uma Prasading -Laboratory Work Phone: Start: 02-13-2024 End: 02-13-2024 ambulatory Uma Crook Facility:[facility] Start: 05-26-2023 End: 05-26-[address] Annamarie Medina Work Phone: [facility] Work Phone: Start: 05-26-2023 End: 05-26-[address] Annamarie Medina Work Phone: [facility]-Laboratory, Specimen Work Phone: Start: 05-04-2023 End: 05-04-[address] Browning [facility] Work Phone: Start: 05-04-2023 End: 05-04-[address] Browning [facility]-Nuclear Medicine, [facility] Work Phone: Start: 04-28-2023 End: 04-28-[address] Browning [facility] Work Phone: Start: 04-28-2023 End: 04-28-[address] Browning [facility]-Cat Scan, [facility] Work Phone: Start: 04-20-2023 End: 04-20-[address] Browning [facility] Work Phone: Start: 04-20-2023 End: 04-20-[address] Browning [facility]-Laboratory Work Phone: Start: 04-03-2023 End: 04-04-2023 Admission to same day surgery center Dr. Browning [facility] Start: 04-03-2023 End: 04-04-[address] Browning [facility] Work Phone: Start: 02-11-2023 End: 02-11-[address] Nam Olivia [facility] Work Phone: Start: 02-02-2023 Non-patient / Non-visit Dr. Nam andres [facility] Start: 02-02-2023 End: 02-02-2023 Admission to same day surgery center Dr. Nam Olivia [facility] Start: 02-02-2023 End: 02-02-[address] Nam Olivia [facility] Work Phone: Start: 01-28-2023 End: 01-28-2023 Non-patient / Non-visit Dr. Nam Olivia [facility] Work Phone: Start: 01-15-2023 End: 01-15-[address] Nam Olivia [facility] Work Phone: Start: 12-20-2022 End: 12-20-2022 ambulatory [facility] Work Phone: Start: 12-20-2022 End: 12-20-2022 Patient encounter procedure [facility]-Laboratory Work Phone: Start: 07-05-2022 End: 07-05-2022 ambulatory [facility] Work Phone: Start: 07-05-2022 End: 07-05-2022 Patient encounter procedure [facility]-Laboratory Procedures Date Procedure Procedure Detail Performing Clinician Start: 11-05-2024 Urine microalbumin/creatinine ratio measurement Dr. Annamarie Medina MD Work Phone: Start: 08-10-2024 Assay of prostate specific antigen [...] Work Phone: Comment on above: Performed at: [address] [id number] Director: Bull Rico PhD, Phone: [phone] Start: 05-04-2023 Radionuclide whole b williams bone [...] Activity Detail Author Start: 04-04-2023 Patient discharge [facility] Start: 04-04-2023 Removal of urinary catheter [facility] Start: 04-03-2023 Anesthesia transurethral resection of prostate ANESTH REMOVAL OF PROSTATE [facility] Start: 04-03-2023 Trurl electrosurg rescj prostate bleed complete PROSTATECTOMY (TURP) [facility] Start: 04-03-2023 Application of intermittent pneumatic compression device [facility] Start: 04-03-2023 Following clinical pathway protocol [facility] Start: 04-03-2023 Admission procedure [facility] Start: 04-03-2023 Deep breathing and coughing exercises [facility] Start: 04-03-2023 Irrigation of urinary bladder [facility] Start: 04-03-2023 Measuring intake and output [facility] Start: 04-03-2023 Patient education [facility] Start: 04-03-2023 Provision of activity privileges [facility] Start: 04-03-2023 Taking patient vital signs [facility] Start: 04-03-2023 Vital signs measurements [facility] Start: 04-03-2023 [facility] Start: 02-02-2023 Anesthesia intraperitoneal lower abd w/laps nos ANESTH SURG LOWER ABDOMEN [facility] Start: 02-02-2023 Laparoscopy surg rpr initial inguinal hernia LAP ING HERNIA REPAIR INIT [facility] Start: 02-02-2023 Patient discharge [facility] Patient referral [facility] Work Phone: Immunizations Immunization Date Immunization Notes Care Provider Monalisa trammell 11-30-2022 influenza, injectabl e, quadrivalent, preservative free Dr. Nam Olivia [facility] Payers Date Payer Category Payer Private Health Insurance [id number] 2024 Self-pay [id number] 2024 Unknown [id number] 1955 Unknown [id number] Unknown [facility] [id number] Unknown [id number] Unknown [id number] Unknown [id number] Unknown [id number] Social History Date Type Detail Facility [facility] Work Phone: Start: 1955 Sex Assigned At Male [facility] Start: 01-23-2023 End: 03-20-2023 Tobacco smoking status NHIS Unknown if ever smoked [facility] Start: 07-24-2023 [facility] Start: 05-25-2024 End: 09-25-2024 Sex Male (finding) [facility] Tobacco smoking status [facility] Medical Equipment Procedure Code Equipment Code Equipment Origin al Text Equipment Identifier Dates TESSA CHÁVEZ FDA Start: 02-02-2023 TESSA CHÁVEZ FDA Start: 02-02-2023 ([id number]) Extra-gynaecolog ical surgical mesh, synthetic polymer, non-bioabsorbable ()[id number] FDA Start: 02-02-2023 Endoscopic manua l linear stapler ()[id number] FDA Start: 02-02-2023 TESSA CHÁVEZ FDA Start: 02-02-2023 KYLERCLEVELANDHEATHER ESTEBAN FDA Start: 02-02-2023 KYLERCLEVELANDHEATHER ESTEBAN FDA Start: 02-02-2023 KYLERCLEVELANDHEATHER ESTEBAN FDA Start: 02-02-2023 KYLERCLEVELANDHEATHRE ESTEBAN FDA Start: 02-02-2023 KYLERTESSA ME Ford ESTEBAN FDA Start: 02-02-2023 KYLERC[place]ANDHEATHER ESTEBAN FDA Start: 02-02-2023 KYLERC[place]ANDHEATHER ESTEBAN FDA Start: 02-02-2023 KYLERC[place]HEATHER ESTEBAN FDA Start: 02-02-2023 KYLERCLEVELANDSERJIOYVETTE ME Ford ESTEBAN FDA Start: 02-02-2023 KYLERCLEVELANDHEATHER ESTEBAN FDA Start: 02-02-2023 KYLERCLEVELANDHEATHER ESTEBAN FDA Start: 02-02-2023 KYLERTESSA ME Ford ESTEBAN FDA Start: 02-02-2023 KYLERTESSA DAVIS Ford ESTEBAN FDA Start: 02-02-2023 Goals Date Patient Goal Desired Activity /State Functional Status Date Assessment Result Facility 04-04-2023 Functional status Ambulates;Chair [facility] Work Phone: Mental Status Date Assessment Result Facility 04-04-2023 Cognitive function Level Of Cons ciousness Awake;Alert;Appropriate;Follow s Commands [facility] Work Phone: 04-04-2023 Cognitive function Voice/Name [facility] Work Phone: 02-02-2023 Cognitive function Voice/Name [facility] Work Phone: Clinical Notes 02-02-2023 to 09-25-2024 [...] to return within 24 to 48 hours 6705-9682 [employer]. [address] [place] [address]. All rights reserved. This information is not intended as a substitute for professional medical care. Always follow your healthcare professional's instructions. Follow Up Care 09/25/2024 07:59:49 With:[facility] Address: [address] [place] [address]- When:2-4 days With:ANNAMARIE MEDINA Address: [address] [place] [phone] When:2-4 days [facility]-25-[facility]24 Note Discharge Instructions Thank you for allowing [facility] to assist you with your healthcare needs. The following is important discharge information regarding your hospital visit. Diagnosis from Today's Visit Conjunctivitis of left eye What to Do Next Instructions from Your Care Team No qualifying data available. Post Acute Orders No qualifying data available. You Need to Schedule the Following Appointments Follow Up with [facility] When:Within 2-4 days Where:[facility] [place] [phone]- Follow Up with ANNAMARIE MEDINA When:Within 2-4 days [facility] [facility] [place] [phone] Allergies No Known Medication Allergies Medications Please [...] to return within 24 to 48 hours 2876-2220 [employer]. [address] [place] [address]. All rights reserved. This information is not intended as a substitute for professional medical care. Always follow your healthcare professional's instructions. Additional Information VACCINATE! IT SAVES LIVES! Members of the community who have not yet received the COVID-19 vaccine and would like to receive it can visit one of [facility] vaccine clinics. There are many vaccine clinic locations within the [facility]. For locations and available times, please visit [email or web address] It is important to note that some COVID mobile vaccine clinics are held outdoors and may be canceled in rainy or stormy conditions. To learn more about pediatric vaccinations (ages 5-11), we invite you to visit the [facility] webpage. [email or web address] [email or web address] To learn more about the COVID-19 vaccine, we invite you to visit the CDC website for a list of frequently asked questions. https://www.cdc.gov/coronavirus/ 2019-ncov/vaccines/faq.html [facility] Patient Portal Access Instructions: Stay connected with your healthcare team and access your personal medical information anytime with the [email or web address] Patient Portal. If you would like a full copy of your medical records please contact the [facility] Medical Records Department Thursday through Thursday between 8a.m. and 4:30p.m. Please follow the directions below to access the portal: 1.Access the email account you provided upon registration to the [facility].2.Look for an invitation email from [facility].3.Open the email and access the invitation link: Accept [facility] to [facility]4.Fill in the required grady to create your account. Sign into [email or web address] with your username and password that you [...] you will allow to register on the [email or web address] Patient Portal for access to your information. You can also access the [email or web address] Patient Portal on the [employer] (formerly [employer]). Simply click on Health Records under Health Data and then click on the [employer] logo. HOW TO SAFELY DISPOSE OF PRESCRIPTION [...] Call your local pharmacy or go to [email or web address] to find one close to you.3.Make use of household items: Use cat litter or old coffee grounds to dispose medications if other options are not available. Mix your drugs with these household products, seal them in an airtight container and throw it into the garbage. Call [facility]: [phone] to be sure your drugs can be [...] been reviewed and explained to me and IJANELLE JOHN R understand my current condition and have read and understand these discharge instructions. I have received a written copy of the plan/instructions. If I have questions, I am aware that I should contact my doctor. 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 Annamarie Medina MD Status:REG [facility] Discharge Instructions Diet Discharge Diet: No restrictions Activity Discharge Activity: Return to Normal Activity and May Not Drive (while taking narcotic pain medications.) Dressing / Incision Call your doctor if you observe: Fever of 101 or Higher Follow Up Care Please Follow Up With: Turner Gupta MD When: Call [phone] for an appointment Test Results: Test results from this visit will be discussed in further detail at your follow-up appointment, if applicable. Discharge Plan Admission Primary Reason for Your Visit: turp Attending Provider: Turner Gupta Primary Care Provider: [...] CC: Dr. Annamarie Medina MD ~ Signed [facility] Work Phone: 1(419) 949-690002-02-2024 History and physical note Author Turner Gupta [facility] April 03, 2023 10:50am Note Date/Time April 03, 2023 1 0:50am [facility] Medical Records Department [address] [place] [address] History & Physical Exam 04/03/23 1050 MR#: [id number] Acct: [id number] Name: MARY LUIS Rep #:[id number] : 1955 67 From: Turner Gupta MD PCP: Dr. Annamarie Medina MD Status:[facility] Location: [place] [address] HPI - General General Date of Service: 04/03/23 Chief Complaint: Retention of urine HPI Narrative MARY LUIS, is a 67 M who presents for transurethral resection of prostate for retention of urine PFSH Medical History Diabetes Former smoker High cholesterol [...] Signs Vital Signs Vital Signs: 04/03/23 08:45 02/02/24 08:45 Temperature 97.6 F L Temperature Source [...] Medina MD; Dr. Turner Gupta MD~ Signed [facility] Work Phone: 1(485) 329-185902-02-2024 Procedure [facility] 02-02-2023 Discharge summary Author James King [facility] February 02, 2023 10:11am Note Date/Time February 02, 2023 7 :10am [facility] Medical Records Department [address] [place] [address] Instructions for Home/Discharge Instructions 02/02/23 0710 MR#: [id number] Acct: [id number] Name: MARY LUIS Rep #:[id number] : 1955 67 From: James King MD PCP: Dr. Annamarie Medina MD Status:REG [facility] Discharge Instructions Procedure General Surgery Diet Discharge [...] Up With: James King MD When: Call [phone] to make an appointment to be seen [...] CC: Dr. Annamarie Medina MD ~ Signed [facility] Work Phone: 1(162) 685-847712-04-2023 Procedure [facility] 02-02-2023 History and physical note Author James King [facility] February 02, 2023 7:09am Note Date/Time February 02, 2023 7 :10am [facility] Medical Records Department [address] [place] [address] History & Physical Exam 02/02/23 0709 MR#: [id number] Acct: [id number] Name: MARY LUIS Rep #:[id number] : 1955 67 From: James King MD PCP: Dr. 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 Very pleasant Hindu gentleman he works at [employer] months ago he developed bulging in his left groin. He is not claiming that it was work-related. He does do significant mount of [employer] shopping. He claims he enjoys good health other than type 2 diabetes. He does remain physically active. 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 He does not have to do any [...] habitus Orientation: alert, awake and oriented x3 HENNY Head: normal to inspection Eyes General: appearance [...] Medina MD; Dr. James King MD~ Signed [facility] Work Phone: Evaluation + Plan note No data available for this section [facility] Evaluation noteNo assessment information available [facility] Work Phone: Evaluation note* Diagnosis Onset Date Resolution Status Left inguinal hernia acute [facility] Work Phone: Evaluation note* Diagnosis Onset Date Resolution Status Left inguinal hernia acute S/P inguinal hernia repair a [facility] Work Phone: Evaluation note* Diagnosis Onset Date Resolution Status S/P inguinal hernia repair a [facility] Work Phone: Hospital Discharge instructions Additional Instructions Implant Used?: [facility] Work Phone: Progress note Author Turner Gupta [facility] April 04, 2023 9:45am Note Date/Time April 04, 2023 9 :46am [facility] Medical Records Department [address] [place] [address] Progress Note - Urology 04/04/23 0945 MR#: [id number] Acct: [id number] Name: MARY LUIS #:[id number] : 1955 67 From: Turner Gupta MD PCP: Dr. Annamarie Medina MD Status:REG [facility] Location: MS3 [id number] Subjective Subjective Status post TURP CBI is [...] Cosigner Signature (if applicable): CC: ~ Signed [facility] Work Phone: Reason for referral (narrative)No reason for referral information [facility] Work Phone: Chief Complaint and Reason [...] January 23, 2 023 1:47pm Power of Observer [employer] No January 23, 2023 1:47pm Advance Directive Response Recorded Date/ Time Name of Medical Power of Observer Electrical [employer]ing unsure April 03, 2023 1:01pm Living Will Yes April 03 1:01pm Power of Observer [employer]ing Yes April 03, 2023 1:01pm Advance Directive Response Recorded Date/ Time Name of Medical Power of Observer [employer] unsure April 03, 2023 2:01pm Living Will Yes April 03 2:01pm Power of Observer [employer]ing Yes April 03, 2023 2:01pm Summary Purpose Family History No Family History Records Found Additional Source Comments Care Teams (unrecognized sec tion and content) Team Status: Active Member Role Status Dates Dr. Nam Olivia MD Family Provider Active Dr. Nam Olivia MD Primary Care Provider Active Team Status: Inactive Member Role Status Dates Dr. Nam Olivia MD Primary Care Provider Active DOUG Turk Attending Provider, Referring Prov ider Active Team Status: Inactive Member Role Status Dates Dr. Nam Oilvia MD Primary Care Provider Active Dr. Annamarie [...] 10, 2024 End: August 10, 2024 Uma Prasading Attending Provider Active Start : August 10, 2024 End: August 10, 2024 Uma [place]borough Referring Provider Active Start : August 10, 2024 End: August 10, 2024 Team Status: Active Member Role/Relationship Status Dates Dr. Annamarie Medina MD Primary Care Provider Active Team Status: Inactive Member Role/Relationship Status Dates Dr. Annamarie Medina MD Primary Care Provider Active Start: August 10, 2024 End: August 10, 2024 Uma Marlborough Attending Provider Active Start : August 10, 2024 End: August 10, 2024 Uma Marlborough Referring Provider Active Start : August 10, 2024 End: August 10, 2024 Team Status: Inactive Member Role/Relationship Status Dates Dr. Annamarie Medina MD Primary Care Provider Active Start: November 05, 2024 End: November 05, 2024 Dr. Annamarie Medina MD Attending Provider Active Start: November 05, 2024 End: November 05, 2024 Dr. Annamarie Medina MD Referring Provider Active Start: November 05, 2024 End: November 05, 2024 Goals (unrecognized section and content) Goals may be documented in a n alternate sectionGoals may be documented in an alternate sectionGoals may be documented in an alternate sectionGoals may be documented in an alternate section No data available for this sectionGoals may be documented in an alternate section (unrecognized sect ion and content) No Status Records FoundNo Status Records Found INFORMATION SOURCE (unrecogn ized section and content) DATE CREATED AUTHOR 10/03/2024 [facility] DATE CREATED AUTHOR AUTHOR'Naz SANCHEZ 11/16/2024 [facility] FOR RECORDS PERTAINING TO PATIENTS WHO ARE [...] BE BASED ON THE PRIMARY CLINICAL RECORDS. [facility] [employer] [facility]. provides no warranty or guarantee of the accuracy or completeness of information in this document.
== END | disposition home or self-care (01) ==
LOC: BFHLAB 15:49 → LAB 16:28
PROVIDERS: Nurse Practitioner; PCP Family Medicine; Referring Provider Family Medicine; Visit Provider Family Medicine
DX: D64.9 Anemia, unspecified (principal); C61 Malignant neoplasm of prostate
CPT/HCPCS: 36415; 82607; 82728; 82746; 83540; 83550; 84153; 85025